=== PATIENT | male | born 1960 | race Caucasian/White ===

== ENCOUNTER → 2020-08-28 08:21 | Outpatient (BNVA) | payer OTHER, SELFPAY | PROVIDERS: PCP Internal Medicine; Visit Provider Surgery | DX: Z76.89 Persons encountering health services in other specified circumstances (principal) ==

== ENCOUNTER → 2020-11-26 09:43 | Outpatient (BNVA) | payer OTHER, SELFPAY | PROVIDERS: PCP Internal Medicine; Visit Provider Physician Assistant | DX: E66.01 Morbid (severe) obesity due to excess calories (principal); K91.2 Postsurgical malabsorption, not elsewhere classified; Z68.42 Body mass index [BMI] 45.0-49.9, adult; Z90.3 Acquired absence of stomach [part of] | CPT/HCPCS: 99212 ==

== ENCOUNTER → 2020-12-11 11:16 | Outpatient (REF) | payer OTHER, SELFPAY ==
--- NOTE | ~2020-12-11 | XR_ITS ---
EXAMINATION: XR CHEST CLINICAL INFORMATION: Obesity COMPARISON: Previous chest x-ray October 2019 TECHNIQUE: 2 views of the chest were obtained. FINDINGS: The cardiac and mediastinal contours are normal. The lungs are clear. There is no pleural effusion or pneumothorax. There are degenerative changes of the spine. XR/XR chest 2V IMPRESSION: No evidence for acute disease in the chest.
--- NOTE | 2020-12-11 12:44 | ECG_ITS ---
Test Reason : OBESITY Blood Pressure : / mmHG Vent. Rate : 051 BPM Atrial Rate : 051 BPM P-R Int : 196 ms QRS Dur : 098 ms QT Int : 456 ms P-R-T Axes : 057 029 013 degrees QTc Int : 420 ms Sinus bradycardia Otherwise normal ECG When compared with ECG of 28-OCT-2019 09:01, No significant change was found Referred By: Laurel Stovall Electronically Signed By:RAMSEY CANTOR MD
== END ==
LOC: HO.CARD 11:16
PROVIDERS: PCP Internal Medicine; Visit Provider Physician Assistant
DX: Z01.818 Encounter for other preprocedural examination (principal); R06.02 Shortness of breath; K91.2 Postsurgical malabsorption, not elsewhere classified; E66.01 Morbid (severe) obesity due to excess calories; Z90.3 Acquired absence of stomach [part of]
CPT/HCPCS: 71046; 93005; 99212

== ENCOUNTER → 2020-12-29 09:37 | Outpatient (BNVA) | payer OTHER, SELFPAY | PROVIDERS: PCP Internal Medicine; Visit Provider Surgery | DX: E66.01 Morbid (severe) obesity due to excess calories (principal); Z68.42 Body mass index [BMI] 45.0-49.9, adult | CPT/HCPCS: 99212 ==

== ENCOUNTER → 2021-01-14 08:47 | Outpatient (BNVA) | payer OTHER, SELFPAY | PROVIDERS: PCP Internal Medicine; Visit Provider Physician Assistant | DX: E66.01 Morbid (severe) obesity due to excess calories (principal); Z90.3 Acquired absence of stomach [part of]; Z68.41 Body mass index [BMI] 40.0-44.9, adult | CPT/HCPCS: 99212 ==

== ENCOUNTER → 2021-01-15 13:16 | Outpatient (BNVA) | payer OTHER, SELFPAY | PROVIDERS: PCP Internal Medicine; Visit Provider Physician Assistant ==

== ENCOUNTER → 2021-01-21 10:57 | Outpatient (BNVA) | payer OTHER, SELFPAY | PROVIDERS: PCP Internal Medicine; Visit Provider Surgery | DX: E66.01 Morbid (severe) obesity due to excess calories (principal); Z68.42 Body mass index [BMI] 45.0-49.9, adult | CPT/HCPCS: 99212 ==

== ENCOUNTER 2021-03-12 07:47 | Outpatient (REF) | payer BC, SELFPAY ==
[2021-03-12 08:23] LABS: Basophils Percent Auto 0.3 % (0-2); Eosinophils Absolute Auto 0.3 X10*3/uL (0.0-0.4); Eosinophils Percent Auto 5.9 % (0-4); Hematocrit 44.7 % (42-52); Hemoglobin 14.6 g/dl (14.0-18.0); Imm Gran Abs Auto 0.01 X10*3/uL (0.00-0.03); Imm Gran Pct Auto 0.2 % (0.0-0.4); Lymphocytes Absolute Auto 1.3 X10*3/uL (1.2-4.9); Lymphocytes Percent Auto 22.8 % (20-40); MANUAL DIFF FLAG NO; Mean Corpuscular HGB Conc 32.7 g/dl (31.0-36.0); Mean Corpuscular Volume 82.8 fL (80-98); Monocytes Absolute Auto 0.4 X10*3/uL (0.1-1.2); Monocytes Percent Auto 6.6 % (2-11); Neutrophils Absolute Auto 3.7 X10*3/uL (2.0-8.3); Neutrophils Percent Auto 64.2 % (45-73); Platelet Count 209 X10*3/uL (160-400); Red Cell Distribution Width 14.2 % (11.0-16.0); White Blood Count 5.8 X10*3/uL (4.8-10.8)
[2021-03-12 08:34] LABS: INTERNATIONAL NORM RATIO 1.2 (0.9-1.1); Prothrombin Time 13.6 SEC (9.9-13.0)
[2021-03-12 08:36] LABS: Partial Thromboplastin Time 35.9 SEC (24.1-38.0)
[2021-03-12 09:06] LABS: Albumin Level 4.1 g/dL (3.5-5.0); Anion Gap 10 (12-20); Blood Urea Nitrogen 18 mg/dL (9-16); Calcium 8.9 mg/dL (8.4-10.2); Carbon Dioxide 25 mmol/L (22-29); Chloride 109 mmol/L (96-108); Estimated Glomerular Filt Rate > 60; Glucose Random 120 mg/dL (60-115); Potassium 3.7 mmol/L (3.3-5.1); Sodium 140 mmol/L (135-145)
== END 2021-03-12 07:48 | disposition home or self-care (01) ==
LOC: HO.LAB 07:47
PROVIDERS: Visit Provider Surgery
DX: Z01.818 Encounter for other preprocedural examination (principal); R06.02 Shortness of breath
CPT/HCPCS: 36415; 80048; 82040; 85025; 85610; 85730; 86850; 86900; 86901

== ENCOUNTER → 2021-03-15 14:44 | Outpatient (BNVA) | payer BC, SELFPAY | PROVIDERS: PCP Internal Medicine; Visit Provider Physician Assistant ==

== ENCOUNTER 2021-03-17 11:33 | Inpatient (IN) | payer BC, SELFPAY ==
--- NOTE | 2021-03-16 09:11 | HO.ANESPROP2 ---
Documented by User: Liseth Vargas 03/16/21 09:17 HPI - Anesthesia Eval Consult details Narrative: 60yo M for Gastric Sleeve to Bypass Conversion,EGD,poss diaphragmatic hernia,poss ventral hernia,poss open h/o gastric sleeve 2013 [facility] Active Problems Active Problems: All Active Problems (Updated 02/02/21 @ 16:16 by Waleska Thakkar) BMI 45.0-49.9, adult (Acute) Morbid obesity due to excess calories (Acute) Depression, major, in remission (Acute) Preoperative examination (Acute) Shortness of breath (Acute) Depression (Acute) Preoperative testing (Acute) Intestinal malabsorption following gastrectomy (Acute) History of sleeve gastrectomy (Acute) Past Medical History Medical History (Updated 02/02/21 @ 16:16 by Waleska Thakkar) Acid reflux Arthritis Depression Gout Heart murmur History of concussion HTN (hypertension) Intestinal malabsorption following gastrectomy Migraines Pre-diabetes Preoperative testing Right rotator cuff tear Sleep apnea Family History Family History Father CHF (congestive heart failure) Mother Breast cancer Brother No problems noted. Brother No problems noted. Sister No problems noted. Sister No problems noted. Son No problems noted. Daughter Mast cell disorder Chriss-Danlos syndrome Chiari malformation Surgical History Surgical History (Updated 02/02/21 @ 09:06 by Waleska Thakkar) H/O nasal septoplasty History of ankle surgery History of sleeve gastrectomy History of tonsillectomy History of total adrenalectomy Hx of colonoscopy Status post left foot surgery Social History Social History (Updated 01/21/21 @ 12:10 by Antoinette Frances MD) Are you a primary care companion to a significant other at home: No Do you presently have visiting nurse or other home services: No Alcohol intake: never Patient Tobacco Use Status: Former Tobacco user Quit Date: 1999 Tobacco use type: Cigar Substance Use Type: Marijuana Meds Allergies Allergy/AdvReac Type Severity Reaction Status Date / Time No Known Allergies Allergy Verified 02/02/21 16:01 Home Medications Medication Instructions Recorded Confirmed Last Taken Type albuterol sulfate 90 mcg/actuation 2 puff INHALATION Q4-6H PRN 08/28/20 02/02/21 Unknown History aerosol inhaler (ProAir HFA) allopurinol 300 mg tablet 150 mg PO DAILY 08/28/20 02/02/21 Unknown History amlodipine 5 mg tablet 5 mg PO DAILY 08/28/20 02/02/21 03/17/21 04:30 History ascorbate calcium (vitamin C) 500 500 mg PO DAILY 08/28/20 02/02/21 Unknown History mg tablet aspirin 81 mg tablet,delayed 81 mg PO DAILY 08/28/20 02/02/21 Unknown History release (Adult Aspirin Regimen) cholecalciferol (vitamin D3) 25 25 mcg PO DAILY 08/28/20 02/02/21 Unknown History mcg (1,000 unit) capsule colchicine 0.6 mg tablet 0.6 mg PO DAILY PRN tab 08/28/20 02/02/21 Unknown History doxazosin 4 mg tablet 4 mg PO BID tab 08/28/20 02/02/21 03/17/21 04:30 History hydrochlorothiazide 12.5 mg capsule 12.5 mg PO BID 08/28/20 02/02/21 Unknown History iron,carbonyl 30 mg-folic acid 800 1 tab PO DAILY 08/28/20 02/02/21 Unknown History [id number] chewable tablet (Opurity Multivitamin) omeprazole magnesium 20 mg 20 mg PO BID 08/28/20 02/02/21 03/17/21 04:30 History capsule,delayed release valsartan 160 mg tablet 160 mg PO DAILY 08/28/20 02/02/21 Unknown History lorazepam 1 mg tablet 1 mg PO BEDTIME PRN 11/26/20 02/02/21 Unknown History Exam Exam Date and Time: March 16, 2021 0911 Pertinent Lab Results Pertinent Lab Results: Laboratory Tests 03/12/21 03/12/21 08:05 08:05 WBC 5.8 Hgb 14.6 Hct 44.7 Plt Count 209 Sodium 140 Potassium 3.7 Chloride 109 H Carbon Dioxide 25 BUN 18 H Creatinine 0.77 Narrative Narrative: EKG 11/2020 Vent. Rate : 051 BPM Atrial Rate : 051 BPM P-R Int : 196 ms QRS Dur : 098 ms QT Int : 456 ms P-R-T Axes : 057 029 013 degrees QTc Int : 420 ms Sinus bradycardia Otherwise normal ECG When compared with ECG of 28-OCT-2019 09:01, No significant change was found ECHO 01/2021 LV size and wall thickness is normal. Normal LV systolic function, EF 55-60%. No definite WMA. Grade 2, mod diastolic dysfunction. Pseudonormal LV filling pattern and increased LA pressure. Aortic valve poorly visualized, appears thickened. No aortic stenosis, no aortic regurg. No pericardial effusion Assessment and Plan Assessment Anesthesia Assessment: Chart Reviewed Documented by User: Deepika Shearer 03/17/21 08:10 [facility] Past Medical History Medical History (Updated 02/02/21 @ 16:16 by Waleska Thakkar) Acid reflux Arthritis Depression Gout Heart murmur History of concussion HTN (hypertension) Intestinal malabsorption following gastrectomy Migraines Pre-diabetes Preoperative testing Right rotator cuff tear Sleep apnea Family History Family History Father CHF (congestive heart failure) Mother Breast cancer Brother No problems noted. Brother No problems noted. Sister No problems noted. Sister No problems noted. Son No problems noted. Daughter Mast cell disorder Chriss-Danlos syndrome Chiari malformation Surgical History Surgical History (Updated 02/02/21 @ 09:06 by Waleska Thakkar) H/O nasal septoplasty History of ankle surgery History of sleeve gastrectomy History of tonsillectomy History of total adrenalectomy Hx of colonoscopy Status post left foot surgery Social History Social History (Updated 01/21/21 @ 12:10 by Antoinette Frances MD) Are you a primary care companion to a significant other at home: No Do you presently have visiting nurse or other home services: No Alcohol intake: never Patient Tobacco Use Status: Former Tobacco user Quit Date: 1999 Tobacco use type: Cigar Substance Use Type: Marijuana Meds Allergies Allergy/AdvReac Type Severity Reaction Status Date / Time No Known Allergies Allergy Verified 02/02/21 16:01 Home Medications Medication Instructions Recorded Confirmed Last Taken Type albuterol sulfate 90 mcg/actuation 2 puff INHALATION Q4-6H PRN 08/28/20 02/02/21 Unknown History aerosol inhaler (ProAir HFA) allopurinol 300 mg tablet 150 mg PO DAILY 08/28/20 02/02/21 Unknown History amlodipine 5 mg tablet 5 mg PO DAILY 08/28/20 02/02/21 03/17/21 04:30 History ascorbate calcium (vitamin C) 500 500 mg PO DAILY 08/28/20 02/02/21 Unknown History mg tablet aspirin 81 mg tablet,delayed 81 mg PO DAILY 08/28/20 02/02/21 Unknown History release (Adult Aspirin Regimen) cholecalciferol (vitamin D3) 25 25 mcg PO DAILY 08/28/20 02/02/21 Unknown History mcg (1,000 unit) capsule colchicine 0.6 mg tablet 0.6 mg PO DAILY PRN tab 08/28/20 02/02/21 Unknown History doxazosin 4 mg tablet 4 mg PO BID tab 08/28/20 02/02/21 03/17/21 04:30 History hydrochlorothiazide 12.5 mg capsule 12.5 mg PO BID 08/28/20 02/02/21 Unknown History iron,carbonyl 30 mg-folic acid 800 1 tab PO DAILY 08/28/20 02/02/21 Unknown History [id number]-[id number]-oywm chewable tablet (Opurity Multivitamin) omeprazole magnesium 20 mg 20 mg PO BID 08/28/20 02/02/21 03/17/21 04:30 History capsule,delayed release valsartan 160 mg tablet 160 mg PO DAILY 08/28/20 02/02/21 Unknown History lorazepam 1 mg tablet 1 mg PO BEDTIME PRN 11/26/20 02/02/21 Unknown History Exam Airway Mallampati Class: III TM Dist: >3cm Neck ROM: Full Assessment and Plan Final Anesthetic Review ASA Class: III Final Preanesthetic Review: Consent Obtained/Reviewed and Anes Risks/Benef Reviewed Patient Risk: Intermediate Procedure Risk: Intermediate Anesthetic Plan Anesthetic Plan: GA Disposition: Standard PACU
--- NOTE | 2021-03-16 12:57 | MHC.SHP ---
Pre-Procedural Eval Section A Date of Service: 03/16/21 Section B Chief Complaint: morbid obesity Allergies: Allergies Allergy/AdvReac Type Severity Reaction Status Date / Time No Known Allergies Allergy Verified 02/02/21 16:01 Plan I have reviewed the history and physical and performed a pertinent physical examination on my patient. No changes have occurred unless specified.
[2021-03-17] VITALS (11 sets, daily range): BP systolic 106–146; BP diastolic 52–68; PULSE 53–86; RESP 16–20; TEMP 35.8–37.2; O2SAT 8–97; BMI 43.7
--- NOTE | 2021-03-17 06:37 | PC.NURSE ---
PATIENT USES CRUTCHES TO WALK AND A LEFT FOOT BRACE FOR AMBULATION PER PATIENT
[2021-03-17] MEDS: Lactated Ringers 1,000 ML 100 ML IVCONT (06:58)
[2021-03-17 07:04] LABS: COVID-19 Test Negative (Negative)
--- NOTE | 2021-03-17 11:39 | PM.PNGS ---
Subjective Subjective Date of Service: 03/18/21 Interval history: Pod #1 s/p []. Doing well. Tolerating stage 3 diet, ambulating in hallway. Pain well controlled. Denies nausea or vomiting. Vitals and labs reviewed and are within limit for post op day 1. On exam, patient is well appearing, abdomen is soft, nd, mild appropriate incisional tenderness. Incisions c/d/i with dermabond in place. Plan: d/c home today. Follow up with me in 2 weeks. Physical Exam Vital Signs: Vital Signs: Last Vital Signs Temp 97.7 F 03/17/21 11:25 Pulse 81 03/17/21 11:35 Resp 18 03/17/21 11:35 BP 131/52 L 03/17/21 11:35 Pulse Ox 94 03/17/21 11:35 Body Mass Index 43.7 Procedures Date of Service Date of Service: 03/18/21 Progress Note: A&P Assessment and plan (1) Morbid obesity due to excess calories: Status: Acute (2) History of sleeve gastrectomy: Status: Acute (3) Intestinal malabsorption following gastrectomy: Status: Acute (4) Hiatal hernia: Status: Acute (5) History of repair of hiatal hernia: Status: Acute (6) S/P gastric bypass: Status: Acute Assessment and Plan: POD #1: Patient is doing well and will be discharged home today. All the discharge instructions were reviewed with the patient and given in writing. Patient will follow up as scheduled in 2 weeks. Fall Risk Details Current Medications: Current Medications Generic Name Dose Route Start Last Admin Trade Name Freq PRN Reason Stop Dose Admin Famotidine 20 mg 03/17/21 21:00 Famotidine/Pf 20 Mg/2 Ml Vial IVPUSH BID JACOB Hydralazine HCl 10 mg 03/17/21 11:40 Hydralazine Hcl 20 Mg/Ml Vial IVPUSH Q4H PRN SBP > 160 Hydromorphone HCl 0.25 mg 03/17/21 11:32 Hydromorphone Hcl 0.5 Mg/0.5 Ml Syringe IVPUSH Q4H PRN Pain, Severe (Pain Scale 7-10) Lactated Ringer's 1,000 mls @ 125 mls/hr 03/17/21 11:45 Lr IVCONT .Q8H JACOB Cefotetan Disodium 2 gm/ 50 mls @ 100 mls/hr 03/17/21 11:32 Sodium Chloride IV 03/17/21 12:01 POSTOP ONE Acetaminophen 1,000 mg in 100 mls @ 16.7 mls/hr 03/17/21 11:45 Ofirmev IV .Q6H JACOB Metoclopramide HCl 10 mg 03/17/21 11:32 Metoclopramide Hcl 10 Mg/2 Ml Vial IVPUSH Q6H PRN Nausea Ondansetron HCl 4 mg 03/17/21 11:45 Ondansetron Hcl 4 Mg/2 Ml Vial IVPUSH Q8H JACOB Sodium Chloride 3 ml 03/17/21 16:00 0.9 % Sodium Chloride Flush 3 Ml Syringe IVFLUSH QSHIFT JACOB Time Spent With Patient Time: Total time spent is greater than 50% in coordination of care (as documented) at patient's floor/unit and/or counseling patient: Time with patient: 25 - 35 minutes Quality Stroke Does the patient have a stroke diagnosis?: No VTE Prior VTE?: No VTE Risk Level:: Surgical - low VTE Device Contraindication: N/A - Device Ordered VTE Drug Contraindication: N/A - Med Ordered
--- NOTE | 2021-03-17 11:41 | P.DS_ITS ---
DS: Providers Provider Date of Service: 03/18/21 Primary care physician: Chay Acevedo MD DS: Diagnosis Discharge Diagnosis (1) Morbid obesity due to excess calories: Status: Acute (2) History of sleeve gastrectomy: Status: Acute (3) Intestinal malabsorption following gastrectomy: Status: Acute (4) Hiatal hernia: Status: Acute (5) History of repair of hiatal hernia: Status: Acute (6) S/P gastric bypass: Status: Acute DS: Medications Discharge Medications Home Medications: Home Medications Medication Instructions Recorded Confirmed albuterol sulfate 90 mcg/actuation 2 puff INHALATION Q4-6H PRN 08/28/20 02/02/21 aerosol inhaler (ProAir HFA) allopurinol 300 mg tablet 150 mg PO DAILY 08/28/20 02/02/21 amlodipine 5 mg tablet 5 mg PO DAILY 08/28/20 02/02/21 ascorbate calcium (vitamin C) 500 500 mg PO DAILY 08/28/20 02/02/21 mg tablet aspirin 81 mg tablet,delayed 81 mg PO DAILY 08/28/20 02/02/21 release (Adult Aspirin Regimen) cholecalciferol (vitamin D3) 25 25 mcg PO DAILY 08/28/20 02/02/21 mcg (1,000 unit) capsule colchicine 0.6 mg tablet 0.6 mg PO DAILY PRN tab 08/28/20 02/02/21 doxazosin 4 mg tablet 4 mg PO BID tab 08/28/20 02/02/21 hydrochlorothiazide 12.5 mg capsule 12.5 mg PO BID 08/28/20 02/02/21 iron,carbonyl 30 mg-folic acid 800 1 tab PO DAILY 08/28/20 02/02/21 [id number]-[id number]-gikm chewable tablet (Opurity Multivitamin) omeprazole magnesium 20 mg 20 mg PO BID 08/28/20 02/02/21 capsule,delayed release valsartan 160 mg tablet 160 mg PO DAILY 08/28/20 02/02/21 lorazepam 1 mg tablet 1 mg PO BEDTIME PRN 11/26/20 02/02/21 Previous Rx's Medication Instructions Recorded acetaminophen 500 mg tablet 1,000 mg PO Q6H PRN #30 tab 01/21/21 (Tylenol Extra Strength) docusate sodium 100 mg capsule 100 mg PO BID #30 cap 06/03/21 (Colace) ondansetron HCl 4 mg tablet 4 mg PO Q6H PRN #30 tab 01/21/21 (Zofran) simethicone 80 mg chewable tablet 80 mg PO TID-QID PRN #30 tab 01/21/21 (Gas Relief (simethicone)) DS: Summary Time Spent with Patient Time attestation: Total time spent providing and/or coordinating discharge services: Discharge coordination time: Greater than 30 minutes Quality: Stroke Does the patient have a stroke diagnosis?: No Physical Exam Vital Signs: Vital Signs: Last Vital Signs Temp 97.7 F 03/17/21 11:25 Pulse 81 03/17/21 11:35 Resp 18 03/17/21 11:35 BP 131/52 L 03/17/21 11:35 Pulse Ox 94 03/17/21 11:35 Body Mass Index 43.7 DS: Data Data Completed and Pending Labs on day of discharge: Laboratory Results - last 24 hr 03/12/21 03/17/21 08:05 06:27 COVID-19 (LINDA) Negative COVID-19 Clin Com See Note Blood Type A Positive Antibody Screen NEGATIVE Discharge Plan Discharge Patient Disposition: Home, Self-Care Discharge Diagnosis: obesity s/p lap conversion to GBP and HH repair Referrals: Chay Acevedo MD [Primary Care Provider] - 1 Week Discharge Medications: Continued lorazepam 1 mg tablet 1 mg PO BEDTIME PRN (Reason: Anxiety) RF: 0 amlodipine 5 mg tablet 5 mg PO DAILY RF: 0 doxazosin 4 mg tablet 4 mg PO BID RF: 0 allopurinol 300 mg tablet 150 mg PO DAILY RF: 0 valsartan 160 mg tablet 160 mg PO DAILY RF: 0 omeprazole magnesium 20 mg capsule,delayed release(DR/EC) 20 mg PO BID RF: 0 hydrochlorothiazide 12.5 mg capsule 12.5 mg PO BID RF: 0 Opurity Multivitamin 30 mg iron- 800 mcg tablet,chewable 1 tab PO DAILY RF: 0 colchicine 0.6 mg tablet 0.6 mg PO DAILY PRN (Reason: gout) RF: 0 cholecalciferol (vitamin D3) 25 mcg (1,000 unit) capsule 25 mcg PO DAILY RF: 0 ascorbate calcium (vitamin C) 500 mg tablet 500 mg PO DAILY RF: 0 albuterol sulfate [ProAir HFA] 90 mcg/actuation HFA aerosol inhaler 2 puff inhalation Q4-6H PRN (Reason: Wheezing) RF: 0 acetaminophen [Tylenol Extra Strength] 500 mg tablet 1,000 mg PO Q6H PRN (Reason: pain) Qty: 30 RF: 1 simethicone [Gas Relief (simethicone)] 80 mg tablet,chewable 80 mg PO TID-QID PRN (Reason: abdominal distention) Qty: 30 RF: 1 ondansetron HCl [Zofran] 4 mg tablet 4 mg PO Q6H PRN (Reason: nausea and vomiting) Qty: 30 RF: 1 docusate sodium [Colace] 100 mg capsule 100 mg PO BID Qty: 30 RF: 1 Discontinued aspirin [Adult Aspirin Regimen] 81 mg tablet,delayed release (DR/EC) 81 mg PO DAILY RF: 0 Discharge Orders: Discharge Order (Routine); Ordered 03/18/21 Ordered By: Laurel Stovall Diet: other Activity on Discharge: No heavy lifting Stand Alone Forms: Patient Portal Discharge page Activity Restrictions/Additional Instructions: Discharge Instructions 1. Please call your doctor or come back to the emergency room should any new symptoms arise. 2. You will receive a courtesy call from [facility] 24-48 hours after discharge. 3. Activity: abstain from alcohol, practice limited stair climbing, no bending, no driving, no exercise, no illicit substances, no lifting, no sex, no tub bath, no work. 4. Diet: continue stage 3 protein shakes until your [address] Frances. 5. Dressing Change/Wound Care: Your incision is covered by surgical glue. If the area is tender, you may apply an ice pack for short intervals (no more than 20 minutes on, followed by at least 20 minutes off). Do not apply heat. Do not use creams, lotions, or topical antibiotics unless instructed to do so by your surgeon. These can cause infection or allergic reaction. 6. Call your doctor if: - Your temperature exceeds 101.5 F - You experience excessive pain or swelling - You have an unexpected reaction to medication - You have excessive bleeding - You experience continued vomiting/nausea - Your incision begins to separate - Your incision shows signs of infection such as increased redness, swelling, excessive pain, heat, or drainage (light blood or clear fluid is normal) 7. General instructions: - No lifting greater than 5 lbs for the next 4 weeks. - No driving within 24 hours of taking narcotic pain medications. - If you do not move your bowels in the next 2 days, please take milk of magnesia over the counter. Please follow the post op diet and do not advance your diet until you are seen in the office in about 2 weeks. - Please walk around your home every hour or two to prevent blood clots from forming in your legs. You do not need to wake from sleeping to walk. - Please sleep in a bed or couch to prevent kinking at the hips and knees. - Please take your incentive spirometer (your lung ross lift operator) home with you and use it for the next few days to prevent pneumonias. - You may shower, no hot tubs, baths or swimming pools. - Please call the office with any questions or concerns such as increasing abdominal pain, fever, chills, shortness of breath, chest pain, leg pain or swelling, or redness or drainage from your incisions. - Please stay on stage 3 diet which includes sugar free clear liquids such as ice pops and jello and broth and crystal light. Avoid all carbonation. Please drink 3 protein shakes with at least 25-30 grams of protein daily or 3 of the Celebrate 4:1 shakes which can be purchased in our office. The Celebrate shakes have all of the bariatric vitamins you need if you consume these shakes. If you are drinking other protein shakes, you will need to purchase the Celebrate multivitamins and calcium that we provide in the office (they will provide all the vitamins you need). Please make sure you are consuming at least 40-60 ounces of water in addition to your 3 protein shakes daily. 8. Do not hesitate to contact the office with any questions at . The patient's medical history has been reviewed and they are considered low risk for post op DVT and therefore DVT prophylaxis is not considered necessary. Travel after surgery was reviewed. The patient has not disclosed any travel plans during the first 30 days after surgery and they have been advised that within the first 30 days after surgery any bus, plane, train or car travel over 2 hours in duration is contraindicated due to the possibility of developing blood clots from immobility. Any travel, needs to include periods of ambulation of 10 minutes in duration every 2 hours. The patient was instructed to discuss any plans for travel during this period with their bariatric surgeon. Discharge Summary Date of Service: 03/18/21 Pre-op diagnosis: Morbid obesity, BMI 44.9, gastroesophageal reflux disease, hypertension, and sleep apnea Procedure: Laparoscopic conversion of sleeve gastrectomy to Piedad-en-Y gastric bypass, hiatal hernia repair, intraoperative endoscopy, and Enoc block Discharge Medications: 1. Simethicone 80mg tablet chewable (Si tablet every 6 hours orally for 7 days, #28, 1 RF) q4h prn gas 2. Acetaminophen 500 mg tablet (Si tablets as needed every 6 hours orally for 30 days, #240, 0 RF) 3. Ondansetron 4 mg tablet disintegrating (Si tablet every 6 hours orally for 7 days, #28, 1 RF) 4. Colace 100 mg capsule (Si capsule twice a day for 30 days, #60, 2 RF) 5. Pepcid 20 mg chewable tablet (Si tablet twice a day for 30 days, #60, 3 RF) Discharge Instructions: The patient should continue on the stage III bariatric diet, which includes 3 protein shakes of at least 20-30g of protein on a daily basis. The patient was encouraged to avoid drinking liquids with her protein shakes. They should wait 30-45 minutes in between her meals and drinking water. She should drink at least 40-60 ounces of water on a daily basis. They should ambulate while at home to avoid any blood clots in her lower extremities. They should call with any questions or concerns such as increase in abdominal pain, persistent nausea, vomiting, redness and drainage from her incisions, fever, chills, shortness of breast, or chest pain beyond what is normal for her. The patient should avoid all heavy lifting greater than 5 pounds for the next 4 weeks. The patient is already scheduled to follow up with me in 2 weeks time, but should call the office with any questions prior to that follow up appointment. The patient should not advance their diet until they are seen in the office for the 2 week appointment. Hospital Course: The patient was admitted after undergoing a conversion to LRYGB. They were started on stage II (1 oz of fluid every 15 minutes) on POD #0. The next morning they were evaluated and started on stage III diet (protein shakes). All labs were within normal limits. On post-operative day #1 she was feeling better, nausea and epigastric pain improved and they were tolerating stage III bariatric diet well. The patient was discharged home. Discharge Disposition: Home. Care Plan Goals: weight loss Health Concerns: obesity Plan of Treatment: conv to GBP Assessment: stable POD #1
[2021-03-17] MEDS: Famotidine/PF 20 MG/2 ML VIAL IVPUSH ×2 (11:52→21:13)
--- NOTE | 2021-03-17 12:01 | PM.OP ---
Brief Operative Note Date of Service: 03/17/21 Pre-op diagnosis: Morbid obesity, BMI 44.9, gastroesophageal reflux disease, hypertension, and sleep apnea Procedure: Laparoscopic conversion of sleeve gastrectomy to Piedad-en-Y gastric bypass, hiatal hernia repair, intraoperative endoscopy, and Enoc block Implants: covidien maylin Surgeon: Antoinette Frances MD Was an Wildlife Veterinarian used for this Procedure?: Yes Wildlife Veterinarian: Laurel Stovall Estimated blood loss (mL): 10 Pathology: other (Partial gastrectomy) Condition: stable Disposition: PACU
--- NOTE | 2021-03-17 12:03 | P.OP_ITS ---
Operative Note Operative Note Date of Service: 03/17/21 Narrative: Patient was brought into the operating room and placed on the operating room table in the supine position. General anesthesia was induced. Normal DVT prophylaxis was instituted and the patient received 2 grams of cefotetan preoperatively. The abdomen was then prepped and draped in the normal sterile fashion. A safety time-out was performed. A mixture of 1% lidocaine with epinephrine and ?% Marcaine plain was used to an esthetize the planned incision site in the left upper quadrant. A #11 scalpel was used to make a 5 mm left upper quadrant transverse incision through which a veress needle was placed. Three pops were heard going through the fascia. A saline drop test was used to confirm that the veress needle was intraabdominal. An optiview technique was then used to place a 5mm port in the left upper quadrant. A 5 mm 30 degree laproscope was then placed through this port and the abdominal cavity was surveyed and was normal. The patient was placed in reverse Trendelenburg positioning. A vianey liver retractor was then placed in the subxyphoid position and it was used to hold up the left lobe of the liver to the abdominal wall. This was secured to the bed using the liver retractor vaz. A PA block was then performed for pain control on the right side of the abdomen. A 5 mm port was placed in the right upper quadrant near the falciform ligament. A 12 mm port was then placed in the mid epigastrium. One additional 5 mm port was placed in the left upper quadrant just to the left of the placement of the first port. I then performed a PA block on the left side of the abdomen. We lifted up the transverse colon mesentery and visualized the ligament of Trietz. I then counted 40 cm from the ligament of Trietz and created a small window in the small bowel mesentery. I then stapled across the antimesenteric surface of the small bowel at the at the 40 cm she. The proximal limb is the biliopancreatic limb and the distal transected bowel will be the earnestine limb. I divided the mesentery at the 40 cm she parallel to the blood vessels in the mesentery for a short distance to be able to bring up the earnestine limb to the gastric pouch later. I counted 150 cm from the distally transected bowel and sutured the the earnestine limb at 150 cm to the biliopancreatic limb using the endostich and a 2-0 ethibond. I then created 2 enterotomies in the lined up limbs of bowel using the hook cautery. I lengthened the enterotomies using the ligasure device and created a common anastomosis using a 60 mm brizuela load endostapler. I stapled the common enterotomy transversely to prevent stricture. I then closed the mesenteric defect at the anastomosis with a 2-0 ethibond running endostich suture. I then created the gastric pouch from the prior sleeve gastrectomy I removed the epigastric fat pad and opened up the angle of His. There was a 3 cm anterior hiatal hernia. I reapproximated the right and left crura anteriorly with 2 stitches of 2-0 Ethibond. There was no residual hiatal hernia. I gained entry into the lesser sac on the lesser curvature of the stomach by dividing a portion of the pars lucida. I fired a 60 mm purple endostapler transversely across the stomach about 6 cm distal to the GE junction. This completed the creation of the gastric pouch from the prior gastric sleeve. The staple line was hemostatic. I brought the earnestine limb up to the gastric pouch and sutured the earnestine limb serosa to the gastric pouch serosa posterior to the transverse staple line using a 2-0 ethibond running stitch using the endostitch. I created a gastrotomy and enterotomy in the adjacent earnestine limb. I lengthened the gastrotomy and enterotomy using the ligasure. I sutured the posterior wall of the stomach and the earnestine limb together using a 0 vicryl running stitch. I sutured the anterior wall of the stomach and earnestine limb together using another running 0-vicryl stitch. The the anterior serosa of stomach and earnestine limb were sutured using a 2-0 ethibond running stitch for a double layer anterior and posterior closure of the gastrojejunostomy. I then clamped across the earnestine limb distal to the anastomosis using a fired 60 mm stapler. I flatted the patient and instilled normal saline around the new anastomosis. I per formed an on-talbe endoscopy. The gastric pouch mucosa was pink without any active bleeding the anastomosis was visably patent. I insufflated the gastric pouch and anastomosis. There was no evidence of leak on laparoscopy. I desufflated the gastric pouch and removed the endoscopy. I removed the endostapler from the abdomen and suctioned the fluid from the left upper quadrant. We removed the 12 mm port and closed the defect with a 0 maxon suture and laparoscopic suture passer. We instilled local anesthetic into the fascial closure site and tied the suture down at a pressure of 8-10 mm of Hg. I removed the vianey liver retractor and the left upper quadrant ports. There was no evidence active bleeding. I removed the last port and laparoscope. We reapproximated all skin incisions using 4-0 monocryl subcuticular stitch. We cleaned and dried the skin and applied dermabond to all skin incisions. All counts were correct at the end of the case . There were no complications. The patient was awake and in stable condition prior to extubation and transfer to the recovery room.
[2021-03-17] MEDS: Lactated Ringers 1,000 ML 125 ML IVCONT ×3 (12:11→19:40)
[2021-03-17] MEDS: HYDROmorphone HCl 0.5 MG/0.5 ML SYRINGE 0.25 MG IVPUSH (12:59)
[2021-03-17] MEDS: cefoTEtan disodium 2 GM in 0.9 % Sodium Chloride 50 ML IV (19:39)
[2021-03-17] MEDS: 0.9 % Sodium Chloride Flush 3 ML SYRINGE IVFLUSH (21:13)
[2021-03-17] MEDS: LORazepam 2 MG/ML VIAL 0.25 MG IVPUSH (22:18)
[2021-03-18] MEDS: Lactated Ringers 1,000 ML 125 ML IVCONT (03:24)
[2021-03-18] MEDS: HYDROmorphone HCl 0.5 MG/0.5 ML SYRINGE 0.25 MG IVPUSH (03:56)
[2021-03-18 04:00] VITALS: BP 148/57; PULSE 61; RESP 18; TEMP 36.7; O2SAT 97
[2021-03-18 06:35] LABS: MANUAL DIFF FLAG NO
[2021-03-18 06:38] LABS: Basophils Percent Auto 0.2 % (0-2); Eosinophils Percent Auto 0.1 % (0-4); Hematocrit 39.4 % (42-52); Hemoglobin 13.2 g/dl (14.0-18.0); Imm Gran Abs Auto 0.19 X10*3/uL (0.00-0.03); Imm Gran Pct Auto 1.6 % (0.0-0.4); Lymphocytes Absolute Auto 0.7 X10*3/uL (1.2-4.9); Lymphocytes Percent Auto 6.3 % (20-40); Mean Corpuscular HGB Conc 33.5 g/dl (31.0-36.0); Mean Corpuscular Hemoglobin 26.8 pg (27.0-33.0); Mean Corpuscular Volume 79.9 fL (80-98); Mean Platelet Volume 10.1 fL (9.4-12.4); Monocytes Absolute Auto 0.7 X10*3/uL (0.1-1.2); Monocytes Percent Auto 5.6 % (2-11); Neutrophils Absolute Auto 10.1 X10*3/uL (2.0-8.3); Neutrophils Percent Auto 86.2 % (45-73); Platelet Count 196 X10*3/uL (160-400); Red Blood Count 4.93 X10*6/uL (4.60-5.80); Red Cell Distribution Width 13.8 % (11.0-16.0); White Blood Count 11.7 X10*3/uL (4.8-10.8)
[2021-03-18] MEDS: Famotidine/PF 20 MG/2 ML VIAL IVPUSH (07:09)
[2021-03-18 07:13] LABS: Anion Gap 13 (12-20); Blood Urea Nitrogen 18 mg/dL (9-16); Calcium 9.1 mg/dL (8.4-10.2); Carbon Dioxide 26 mmol/L (22-29); Chloride 105 mmol/L (96-108); Creatinine Clr Calc Pharmacy 94.9; Estimated Glomerular Filt Rate > 60; Glucose Random 127 mg/dL (60-115); Potassium 4.4 mmol/L (3.3-5.1); Sodium 140 mmol/L (135-145)
[2021-03-18 07:49] VITALS: BP 159/78; PULSE 54; RESP 18; TEMP 37.1; O2SAT 97
--- NOTE | 2021-03-18 08:06 | HO.POSTANES ---
Post Anesthesia Evaluation Post Anesthesia Evaluation Vital Signs: Vital Signs Temp Pulse Resp BP Pulse Ox 03/18/21 07:49 98.7 F 54 18 159/78 H 97 03/18/21 04:00 98.1 F 61 18 148/57 H 97 03/17/21 23:40 98.6 F 63 18 133/62 97 Anesthesia: General Endotracheal-GETA Mental Status: Awake Pain Control: Satisfactory Nausea/Vomiting: None Hydration: Adequate Anesthesia-Related Issues: No Anes. Related Issues
[2021-03-18] MEDS: amLODIPine Besylate 5 MG TABLET PO (10:24)
[2021-03-18] MEDS: Valsartan 160 MG TABLET PO (10:24)
[2021-03-18 12:00] VITALS: BP 160/71; PULSE 53; RESP 18; TEMP 37.1; O2SAT 97
== END 2021-03-18 13:06 | disposition home or self-care (01) | DRG 403 ==
LOC: HO.SSSA 11:47 → HO.S3 11:58
PROVIDERS: Physician Assistant; Admitting Provider Surgery; PCP Internal Medicine; Visit Provider Surgery
PROC: 0D164ZA Bypass Stomach to Jejunum, Percutaneous Endoscopic Approach (ICD-10-PCS; principal; 2021-03-17 08:10)
DX: E66.01 Morbid (severe) obesity due to excess calories (principal); K91.2 Postsurgical malabsorption, not elsewhere classified; I10 Essential (primary) hypertension; K21.9 Gastro-esophageal reflux disease without esophagitis; G47.30 Sleep apnea, unspecified; K44.9 Diaphragmatic hernia without obstruction or gangrene; Z68.41 Body mass index [BMI] 40.0-44.9, adult; Z20.822 Contact with and (suspected) exposure to COVID-19; Z87.891 Personal history of nicotine dependence; Z98.84 Bariatric surgery status; Z79.899 Other long term (current) drug therapy
CPT/HCPCS: 36415; 80048; 85025; 86850; 86900; 86901; 87635; J0131; J1100; J1170; J2060; J2250; J2405; J3010

== ENCOUNTER → 2021-03-22 14:09 | Outpatient (BNVA) | payer BC, SELFPAY | PROVIDERS: PCP Internal Medicine; Visit Provider Surgery ==

== ENCOUNTER → 2021-04-01 10:52 | Outpatient (BNVA) | payer BC, SELFPAY | PROVIDERS: PCP Internal Medicine; Visit Provider Surgery ==

== ENCOUNTER → 2021-04-30 09:28 | Outpatient (BNVA) | payer BC, SELFPAY | PROVIDERS: PCP Internal Medicine; Visit Provider Surgery ==

== ENCOUNTER → 2021-05-28 07:59 | Outpatient (BNVA) | payer BC, SELFPAY | PROVIDERS: PCP Internal Medicine; Visit Provider Dietitian, Registered | DX: E66.9 Obesity, unspecified (principal); Z68.36 Body mass index [BMI] 36.0-36.9, adult | CPT/HCPCS: 97803 ==

== ENCOUNTER → 2021-06-11 10:33 | Outpatient (BNVA) | payer BC, SELFPAY | PROVIDERS: PCP Internal Medicine; Visit Provider Physician Assistant Surgical ==

== ENCOUNTER → 2021-07-19 10:00 | Outpatient (BNVA) | payer BC, SELFPAY | PROVIDERS: PCP Internal Medicine; Visit Provider Physician Assistant Surgical ==

== ENCOUNTER 2021-09-20 11:29 | Outpatient (REF) | payer BC, SELFPAY | END 2021-09-20 11:30 | disposition home or self-care (01) | LOC: HO.LAB 11:29 | PROVIDERS: Absent Provider Physician Assistant; PCP Internal Medicine; Visit Provider Physician Assistant Surgical | DX: Z13.89 Encounter for screening for other disorder (principal) ==

== ENCOUNTER → 2021-10-14 08:18 | Outpatient (BNVA) | payer BC, SELFPAY | PROVIDERS: PCP Internal Medicine; Visit Provider Dietitian, Registered | DX: E66.3 Overweight (principal); Z68.28 Body mass index [BMI] 28.0-28.9, adult; R73.03 Prediabetes; Z98.84 Bariatric surgery status; Z71.3 Dietary counseling and surveillance | CPT/HCPCS: 97803 ==

== ENCOUNTER 2021-11-23 11:40 | Inpatient (IN) | payer BC, SELFPAY ==
[2021-11-23] VITALS (26 sets, daily range): BP systolic 97–132; BP diastolic 45–66; PULSE 52–86; RESP 14–54; TEMP 36.3–37.4; O2SAT 98–99; BMI 27.8; BMI 30.3
--- NOTE | ~2021-11-23 | CT_ITS ---
EXAMINATION: CT ABDOMEN AND PELVIS WITH CONTRAST CLINICAL INFORMATION: Left lower quadrant pain and rectal bleeding COMPARISON: None TECHNIQUE: Multidetector volumetric images were obtained from the superior aspect of the liver through the pubic symphysis following administration 85 mL of Omnipaque 350 intravenous contrast. Sagittal and coronal reformatted images were obtained on the technologist's workstation. Oral contrast: Yes This CT examination was performed using dose optimization techniques as appropriate, variously including the following: *Automated exposure control *Adjustment of mA and/or kV according to patient size (this includes techniques or standardized protocols for targeted exams where dose is matched to indication/reason for exam; i.e. extremities or head) *Use of iterative reconstruction technique DLP: 622 mGy-cm FINDINGS: LUNG BASES: There are several clustered left lower lobe nodules, largest measuring 5 mm. LIVER, GALLBLADDER, AND BILIARY TREE: The liver is normal in size, shape, and attenuation. No focal hepatic lesion or biliary ductal dilatation is present. The gallbladder is unremarkable with no evidence of radiopaque gallstones, gallbladder wall thickening, or obvious pericholecystic inflammatory changes. PANCREAS: Unremarkable. SPLEEN: Unremarkable. ADRENAL GLANDS: Unremarkable. KIDNEYS AND URETERS: The kidneys are normal in size, shape, and attenuation. No hydronephrosis, hydroureter, or calculi seen. No perinephric stranding. BLADDER: Unremarkable. GASTROINTESTINAL TRACT: There are postoperative changes from gastric bypass. There is mild diverticulosis of the colon. No evidence of diverticulitis or colitis is seen. The appendix is unremarkable. ABDOMINAL WALL: No significant hernia is appreciated. LYMPH NODES: Normal. VASCULAR: Unremarkable. PELVIC VISCERA: Prostate gland is slightly enlarged measuring 5 x 5.8 cm. There is a small amount of fluid in the pelvis. OSSEOUS STRUCTURES: There are degenerative changes of the spine. CT/CT abdomen pelvis w con IMPRESSION: Postoperative changes from gastric bypass. Mild diverticulosis. No evidence of diverticulitis or colitis. Enlarged prostate gland. Left lower lobe pulmonary nodules. Fleischner guidelines were followed.
[2021-11-23 12:27] LABS: MANUAL DIFF FLAG NO
[2021-11-23 12:29] LABS: Basophils Percent Auto 0.2 % (0-2); Eosinophils Absolute Auto 0.1 X10*3/uL (0.0-0.4); Eosinophils Percent Auto 2.1 % (0-4); Hematocrit 28.3 % (42.0-52.0); Hemoglobin 9.4 g/dl (14.0-18.0); Imm Gran Abs Auto 0.01 X10*3/uL (0.00-0.03); Imm Gran Pct Auto 0.2 % (0.0-0.4); Lymphocytes Absolute Auto 1.1 X10*3/uL (1.2-4.9); Lymphocytes Percent Auto 26.3 % (20-40); Mean Corpuscular HGB Conc 33.2 g/dl (31.0-36.0); Mean Corpuscular Hemoglobin 28.5 pg (27.0-33.0); Mean Corpuscular Volume 85.8 fL (80.0-98.0); Mean Platelet Volume 10.1 fL (9.4-12.4); Monocytes Absolute Auto 0.3 X10*3/uL (0.1-1.2); Neutrophils Absolute Auto 2.7 x10*3/uL (2.0-8.3); Neutrophils Percent Auto 64.2 % (45-73); Platelet Count 169 X10*3/uL (160-400); Red Cell Distribution Width 14.5 % (11.0-16.0); White Blood Count 4.3 X10*3/uL (4.8-10.8)
[2021-11-23 12:35] LABS: INTERNATIONAL NORM RATIO 1.3 (0.9-1.1); Prothrombin Time 14.4 SEC (9.9-13.0)
[2021-11-23 12:56] LABS: Troponin-I High Sensitivity 22.6 ng/L (<3.5-35.0)
[2021-11-23 12:59] LABS: Alanine Aminotransferase 54 U/L (0-40); Albumin Level 3.5 g/dL (3.5-5.0); Alkaline Phosphatase 50 U/L (39-117); Anion Gap 6 (12-20); Aspartate Amino Transferase 34 U/L (5-37); Bilirubin Direct 0.4 mg/dL (0.0-0.5); Bilirubin Total 0.8 mg/dL (0.0-1.0); Blood Urea Nitrogen 30 mg/dL (9-16); Calcium 8.9 mg/dL (8.4-10.2); Carbon Dioxide 30 mmol/L (22-29); Chloride 110 mmol/L (96-108); Creatinine Clr Calc Pharmacy 118.3; Estimated Glomerular Filt Rate > 60; Glucose Random 92 mg/dL (60-115); Lipase 54 U/L (8-78); Potassium 4.1 mmol/L (3.3-5.1); Sodium 142 mmol/L (135-145); Total Protein 5.2 g/dL (6.5-8.0)
[2021-11-23 13:37] LABS: OBS Int Ctl Valid YES; OBS1 POSITIVE (NEGATIVE)
[2021-11-23] MEDS: ondansetron HCL 4 MG/2 ML VIAL IVPUSH (13:41)
--- NOTE | 2021-11-23 13:41 | ED_ITS ---
HPI - GI Bleed General Chief complaint: GI Bleed Stated complaint: black stool w/ blood/abd pain Time Seen by Provider: 11/23/21 13:05 Source: patient Mode of arrival: ambulatory Limitations: no limitations History of Present Illness HPI Narrative: Patient comes to the emergency room complaining of black/maroon stool for the last 3 days. Patient states that over the last 3 days, the black colored has become more obvious, and the abdominal pain has been gradually getting worse. Patient has history of sleeve gastrectomy which was converted into a gastric bypass, done in February of 2021 here at [facility]. Also, patient admits that he has been taking baby aspirin daily. Patient complaining of diff use abdominal pain, worse in the left lower quadrant. Patient denies fever chills, no dysuria. Earlier today, patient had 1 episode of vomiting without blood. Patient states that today he has had 2 episodes of dizziness. One in the morning when he stood up, he started feeling very dizzy/lightheaded. The 2nd time was today when he was walking from the waiting room in the ED to his current room. Related Data Home Medications Medication Instructions Recorded Confirmed albuterol sulfate 90 mcg/actuation 2 puff INHALATION Q4-6H PRN 08/28/20 11/23/21 aerosol inhaler (ProAir HFA) ascorbate calcium (vitamin C) 500 500 mg PO DAILY 08/28/20 11/23/21 mg tablet colchicine 0.6 mg tablet 0.6 mg PO DAILY PRN tab 08/28/20 11/23/21 iron,carbonyl 30 mg-folic acid 800 1 tab PO DAILY 08/28/20 11/23/21 [id number] chewable tablet (Opurity Multivitamin) valsartan 160 mg tablet 160 mg PO DAILY 08/28/20 11/23/21 trazodone 50 mg tablet 200 mg PO BEDTIME PRN tab 04/01/21 11/23/21 calcium citrate 1,000 mg tablet 1,000 mg PO DAILY 04/30/21 11/23/21 diphenhydramine HCl 25 mg capsule 50 mg PO BEDTIME cap 04/30/21 11/23/21 (Benadryl) allopurinol 300 mg tablet 300 mg PO DAILY 11/23/21 11/23/21 aspirin 81 mg chewable tablet 81 mg PO DAILY 11/23/21 11/23/21 atorvastatin 40 mg tablet 1 tab PO DAILY 11/23/21 11/23/21 buspirone 10 mg tablet 1 tab PO BID PRN 11/23/21 11/23/21 buspirone 10 mg tablet 1 tab PO DAILY 11/23/21 11/23/21 cholecalciferol (vitamin D3) 25 25 mcg PO DAILY 11/23/21 11/23/21 mcg (1,000 unit) tablet tamsulosin 0.4 mg capsule 1 cap PO DAILY 11/23/21 11/23/21 Allergies Allergy/AdvReac Type Severity Reaction Status Date / Time No Known Allergies Allergy Verified 09/20/21 11:33 Review of Systems Review of Systems: Constitutional : No Weight loss, No Fever, No Chills, No Night Sweats, No Fatigue, No Malaise ENT/Mouth : No Hearing loss, No Ear Pain, No Nasal Congestion, No Sinus Pain, No Hoarseness, No sore throat, No Rhinorrhea, No Swallowing Difficulty Eyes: No Eye Pain, No Swelling, No Redness, No Foreign Body, No Discharge, No Vision Changes Cardiovascular : No Chest Pain, No SOB, No Dyspnea on Exertion, No Orthopnea, No Edema, No Palpitations Respiratory : No Cough, No Sputum, No Wheezing, No Smoke Exposure, No Dyspnea Gastrointestinal : Complaining of nausea, 1 episode of vomiting, no diarrhea, having black/maroon stool for 3 days Genitourinary : no irregular bleeding, No Dysuria, No Urinary Frequency, No Hematuria, No Urinary Incontinence, No Urgency, No Flank Pain, No Urinary Flow Changes, No Hesitancy Musculoskeletal : No joint pain, No Myalgias, No Joint Swelling Skin : No Skin Lesions, No rash Neuro : No Weakness, No Numbness, No Paresthesias, No Loss of Consciousness, No Dizziness, No Headache Psych : No Anxiety/Panic, No Depression, No SI/HI/AH/VH, No Social Issues, Heme/Lymph: No Bruising, No Bleeding,No Lymphadenopathy Endocrine : No Polyuria, No Polydipsia, No Temperature Intolerance [facility] Past Medical History Medical History Acid reflux Arthritis Depression Gout Heart murmur Hiatal hernia History of concussion HTN (hypertension) Intestinal malabsorption following gastrectomy Migraines Pre-diabetes Preoperative testing Right rotator cuff tear Sleep apnea Surgical History H/O nasal septoplasty History of ankle surgery History of gastric bypass History of repair of hiatal hernia History of sleeve gastrectomy History of tonsillectomy History of total adrenalectomy Hx of colonoscopy S/P gastric bypass Status post left foot surgery Family History Family History Father CHF (congestive heart failure) Mother Breast cancer Brother No problems noted. Brother No problems noted. Sister No problems noted. Sister No problems noted. Son No problems noted. Daughter Mast cell disorder Chriss-Danlos syndrome Chiari malformation Social History Social History Are you a primary health care facility administrator to a significant other at home: No Do you presently have visiting nurse or other home services: No Alcohol intake: current Alcohol intake frequency: holidays/special occasions only Patient Tobacco Use Status: Former Tobacco user Quit Date: 1999 Tobacco use type: Cigar Use of substances other than those prescribed or required for medical reasons: No Substance Use Type: Marijuana Advance Directives: No Advance Directives Information Provided: Yes Physical Exam Vital Signs: Vital Signs: Last Vital Signs Temp 99.0 F 11/23/21 16:31 Pulse 56 11/23/21 16:31 Resp 16 11/23/21 16:31 BP 106/55 L 11/23/21 16:31 Pulse Ox 99 11/23/21 14:32 BMI result Body Mass Index 27.8 Const: Other: Appearance: Alert. Oriented X3. Slightly uncomfortable Eyes: Pupils equal, round and reactive to light. ENT: Pharynx normal. Neck: Normal inspection. Neck supple. No lymph nodes noted. No crepitus CVS: Normal heart rate and rhythm. Pulses normal. Normal S1 and S2 Respiratory: No respiratory distress. Breath sounds normal. No Wheezing. No rales Abdomen: Soft, diffuse abdominal pain worse in the left lower quadrant, no rebound, no guarding Skin: Skin warm and dry. Diffusely pale, slightly diaphoretic Extremities: No lower extremity edema. No Lacerations. No Rash Neuro: Oriented X 3. No motor deficit. No sensory deficit. Moving all extremities. No slurred speech. CN 2 through 12 grossly intact Psych: calm, cooperative, normal affect Course Course Course Narrative: I discussed the patient with nurse practitioner Odilia from bariatric surgery. Patient's hemoglobin level is usually around 14, today is 9.4. We will transfuse the patient with PRBCs and also per Dr. Buchanan' advice, we will give 1 of platelets since the patient has been taking aspirin daily. Repeat H&H pending, CT scan pending. I discussed with the patient the risks versus benefits of a blood transfusion. Patient states that he has had a blood transfusion before when he was 14 years old. Patient agrees to the transfusion of platelets and blood. We will also get a GI consult, patient will be admitted I discussed the patient with Dr. Salcedo, endoscopy will likely take place on 11/25/21 unless it becomes urgent. Dr. Markham will be admitted the patient to the medicine service. MDM - GI Bleed Lab Data Result diagrams: 11/23/21 13:41 11/23/21 12:19 Labs: Lab Results 11/23/21 11/23/21 11/23/21 Range/Units 12:19 12:19 12:19 WBC 4.3 L (4.8-10.8) X10*3/uL RBC 3.30 L (4.60-5.80) X10*6/uL Hgb 9.4 L (14.0-18.0) g/dl Hct 28.3 L (42.0-52.0) % MCV 85.8 (80.0-98.0) fL MCH 28.5 (27.0-33.0) pg MCHC 33.2 (31.0-36.0) g/dl RDW 14.5 (11.0-16.0) % Plt Count 169 (160-400) X10*3/uL MPV 10.1 (9.4-12.4) fL Immature Gran % (Auto) 0.2 (0.0-0.4) % Neut % (Auto) 64.2 (45-73) % Lymph % (Auto) 26.3 (20-40) % [place] % (Auto) 7.0 (2-11) % Eos % (Auto) 2.1 (0-4) % Baso % (Auto) 0.2 (0-2) % Lymph # (Auto) 1.1 L (1.2-4.9) X10*3/uL [place] # (Auto) 0.3 (0.1-1.2) X10*3/uL Eos # (Auto) 0.1 (0.0-0.4) X10*3/uL Baso # (Auto) 0.0 (0.0-0.2) X10*3/uL Abs Immat Gran (auto) 0.01 (0.00-0.03) X10*3/uL Absolute Neuts (auto) 2.7 (2.0-8.3) x10*3/uL Absolute Nucleated RBC 0.000 (0.0-0.012) X10*3/uL Nucleated RBC % (auto) 0.0 (0.0-0.2) /100WBC PT (9.9-13.0) SEC INR (0.9-1.1) Sodium 142 (135-145) mmol/L Potassium 4.1 (3.3-5.1) mmol/L Chloride 110 H (96-108) mmol/L Carbon Dioxide 30 H (22-29) mmol/L Anion Gap 6 L (12-20) BUN 30 H (9-16) mg/dL Creatinine 0.65 (0.5-1.4) mg/dL Estim Creat Clear Calc 118.3 Estimated GFR > 60 Random Glucose 92 (60-115) mg/dL Calcium 8.9 (8.4-10.2) mg/dL Total Bilirubin 0.8 (0.0-1.0) mg/dL Direct Bilirubin 0.4 (0.0-0.5) mg/dL AST 34 (5-37) U/L ALT 54 H (0-40) U/L Alkaline Phosphatase 50 (39-117) U/L Troponin I High Sens 22.6 (<3.5-35.0) ng/L Total Protein 5.2 L (6.5-8.0) g/dL Albumin 3.5 (3.5-5.0) g/dL Lipase 54 (8-78) U/L Stool Occult Blood (NEGATIVE) COVID-19 (LINDA) (Negative) COVID-19 Clin Com Blood Type Antibody Screen Crossmatch 11/23/21 11/23/21 11/23/21 Range/Units 12:19 12:22 13:32 WBC (4.8-10.8) X10*3/uL RBC (4.60-5.80) X10*6/uL Hgb (14.0-18.0) g/dl Hct (42.0-52.0) % MCV (80.0-98.0) fL MCH (27.0-33.0) pg MCHC (31.0-36.0) g/dl RDW (11.0-16.0) % Plt Count (160-400) X10*3/uL MPV (9.4-12.4) fL Immature Gran % (Auto) (0.0-0.4) % Neut % (Auto) (45-73) % Lymph % (Auto) (20-40) % [place] % (Auto) (2-11) % Eos % (Auto) (0-4) % Baso % (Auto) (0-2) % Lymph # (Auto) (1.2-4.9) X10*3/uL [place] # (Auto) (0.1-1.2) X10*3/uL Eos # (Auto) (0.0-0.4) X10*3/uL Baso # (Auto) (0.0-0.2) X10*3/uL Abs Immat Gran (auto) (0.00-0.03) X10*3/uL Absolute Neuts (auto) (2.0-8.3) x10*3/uL Absolute Nucleated RBC (0.0-0.012) X10*3/uL Nucleated RBC % (auto) (0.0-0.2) /100WBC PT 14.4 H (9.9-13.0) SEC INR 1.3 H (0.9-1.1) Sodium (135-145) mmol/L Potassium (3.3-5.1) mmol/L Chloride (96-108) mmol/L Carbon Dioxide (22-29) mmol/L Anion Gap (12-20) BUN (9-16) mg/dL Creatinine (0.5-1.4) mg/dL Estim Creat Clear Calc Estimated GFR Random Glucose (60-115) mg/dL Calcium (8.4-10.2) mg/dL Total Bilirubin (0.0-1.0) mg/dL Direct Bilirubin (0.0-0.5) mg/dL AST (5-37) U/L ALT (0-40) U/L Alkaline Phosphatase (39-117) U/L Troponin I High Sens (<3.5-35.0) ng/L Total Protein (6.5-8.0) g/dL Albumin (3.5-5.0) g/dL Lipase (8-78) U/L Stool Occult Blood POSITIVE (NEGATIVE) COVID-19 (LINDA) (Negative) COVID-19 Clin Com Blood Type A Positive Antibody Screen NEGATIVE Crossmatch See Detail 11/23/21 11/23/21 Range/Units 13:41 15:36 WBC (4.8-10.8) X10*3/uL RBC (4.60-5.80) X10*6/uL Hgb 9.0 L (14.0-18.0) g/dl Hct 27.1 L (42.0-52.0) % MCV (80.0-98.0) fL MCH (27.0-33.0) pg MCHC (31.0-36.0) g/dl RDW (11.0-16.0) % Plt Count (160-400) X10*3/uL MPV (9.4-12.4) fL Immature Gran % (Auto) (0.0-0.4) % Neut % (Auto) (45-73) % Lymph % (Auto) (20-40) % [place] % (Auto) (2-11) % Eos % (Auto) (0-4) % Baso % (Auto) (0-2) % Lymph # (Auto) (1.2-4.9) X10*3/uL [place] # (Auto) (0.1-1.2) X10*3/uL Eos # (Auto) (0.0-0.4) X10*3/uL Baso # (Auto) (0.0-0.2) X10*3/uL Abs Immat Gran (auto) (0.00-0.03) X10*3/uL Absolute Neuts (auto) (2.0-8.3) x10*3/uL Absolute Nucleated RBC (0.0-0.012) X10*3/uL Nucleated RBC % (auto) (0.0-0.2) /100WBC PT (9.9-13.0) SEC INR (0.9-1.1) Sodium (135-145) mmol/L Potassium (3.3-5.1) mmol/L Chloride (96-108) mmol/L Carbon Dioxide (22-29) mmol/L Anion Gap (12-20) BUN (9-16) mg/dL Creatinine (0.5-1.4) mg/dL Estim Creat Clear Calc Estimated GFR Random Glucose (60-115) mg/dL Calcium (8.4-10.2) mg/dL Total Bilirubin (0.0-1.0) mg/dL Direct Bilirubin (0.0-0.5) mg/dL AST (5-37) U/L ALT (0-40) U/L Alkaline Phosphatase (39-117) U/L Troponin I High Sens (<3.5-35.0) ng/L Total Protein (6.5-8.0) g/dL Albumin (3.5-5.0) g/dL Lipase (8-78) U/L Stool Occult Blood (NEGATIVE) COVID-19 (LINDA) Negative (Negative) COVID-19 Clin Com See Note Blood Type Antibody Screen Crossmatch Critical Care Time Critical Care Time Critical Care Time: Yes Total Critical Care Time: 50 Attestation: I have personally provided critical care time. Time includes review of lab data, radiology results, discussion with consultants, and monitoring for potential decompensation. Intervention performed as documented. Discharge Plan Discharge Clinical Impression: Acute GI bleeding Patient Disposition: Admitted As Inpatient
[2021-11-23] MEDS: 0.9 % Sodium Chloride 1,000 ML 999 ML IVCONT (13:42)
[2021-11-23] MEDS: Morphine Sulfate 2 MG/ML CARTRIDGE IVPUSH (13:45)
[2021-11-23 13:52] LABS: Hematocrit 27.1 % (42.0-52.0)
[2021-11-23] MEDS: iohexoL 350 MG/ML 100 ML INFUS..BTL IV (14:07)
--- NOTE | 2021-11-23 15:28 | PC.NURSE ---
Pt seen by GI. PRBCs continue to infuse, no rx noted. sinus kamila on tele
--- NOTE | 2021-11-23 15:28 | PHA.MEDREC ---
Pharmacy Consult ? Medication Reconciliation Pharmacy has completed the medication reconciliation. spoke with pt. he also takes a supplement called Relora twice daily. He took aspirin 81 mg today, but said not taking any more now?
[2021-11-23 15:55] LABS: COVID-19 Test Negative (Negative)
[2021-11-23] MEDS: Pantoprazole Sodium 40 MG/10 ML VIAL IVPUSH ×2 (16:28→21:19)
--- NOTE | 2021-11-23 16:44 | P.CNGI_ITS ---
History of Present Illness Data of Consult Service Date: 11/23/21 Requesting physician: Tahira Singh Primary Care Provider: Chay Acevedo MD HPI Reason for consult: Acute blood loss anemia 61 yr old m with hx of sleeve gastrectomy revised to gastric bypass 02/2021, adrenal gland surgery, HTN, depression who I am seeing for assessment for acute blood loss anemia. Patient had noted last few days passing black stools, associated with 7/10 epigastric pain radiating into the lower abdomen which is much improved now after receiving pain medication. He finally came in today after noted the stool seemed more maroon and he was also feeling more weak and tired. Denies SOB or chest pain. He did have one episode of nausea with non bloody emesis. Appetite has been fair, no fevers or chills. He does smoke cigars and been taking aspirin daily for years. He drinks alcohol occasionally. Has been having a lot of stress due to work and going thru a divorce. Last colonoscopy 1 yr at [facility] and normal per his report He has been ordered platelets and a unit of PRBC by ED, commenced on IV PPI. A Ct was done with no active bleeding noted, personally reviewed, Review of Systems Review of Systems: Constitutional : No Weight loss, No Fever, No Chills ENT/Mouth : No sore throat, No Rhinorrhea Eyes: No Swelling, No Redness Cardiovascular : No Chest Pain, No SOB, No Edema Respiratory : No Cough, No Sputum, No Wheezing Gastrointestinal : see HPI Genitourinary : NO Dysuria, No Urinary Frequency, No Hematuria, No Urgency Musculoskeletal : No joint pain, No Myalgias, No Joint Swelling Skin : No Skin Lesions, No rash Neuro : + Weakness, No Numbness, No Dizziness, No Headache Psych : No Anxiety/Panic, No Depression Heme/Lymph: No Bruising, No Lymphadenopathy Endocrine : No Polyuria, No Polydipsia All other systems reviewed and are negative. [facility] Past Medical History Medical History Acid reflux Arthritis Depression Gout Heart murmur Hiatal hernia History of concussion HTN (hypertension) Intestinal malabsorption following gastrectomy Migraines Pre-diabetes Preoperative testing Right rotator cuff tear Sleep apnea Family History Family History Father CHF (congestive heart failure) Mother Breast cancer Brother No problems noted. Brother No problems noted. Sister No problems noted. Sister No problems noted. Son No problems noted. Daughter Mast cell disorder Chriss-Danlos syndrome Chiari malformation Surgical History Surgical History H/O nasal septoplasty History of ankle surgery History of gastric bypass History of repair of hiatal hernia History of sleeve gastrectomy History of tonsillectomy History of total adrenalectomy Hx of colonoscopy S/P gastric bypass Status post left foot surgery Social History Social History Are you a primary care support representative to a significant other at home: No Do you presently have visiting nurse or other home services: No Alcohol intake: current Alcohol intake frequency: holidays/special occasions only Patient Tobacco Use Status: Former Tobacco user Quit Date: 1999 Tobacco use type: Cigar Use of substances other than those prescribed or required for medical reasons: No Substance Use Type: Marijuana Advance Directives: No Advance Directives Information Provided: Yes Meds Allergies Allergy/AdvReac Type Severity Reaction Status Date / Time No Known Allergies Allergy Verified 09/20/21 11:33 Active Medications: Current Medications Pantoprazole Sodium (Pantoprazole Sodium 40 Mg/10 Ml Vial) 40 mg IVPUSH BID [facility] Pharmacy Consult (Consult Rx Perform Med Rec) 1 each MISCELLANE ONCE PRN PRN Reason: Consult order Pharmacy Consult (Consult Rx Perform Med Rec) 1 each MISCELLANE ONCE PRN PRN Reason: Consult order Home Medications Medication Instructions Recorded Confirmed Last Taken Type albuterol sulfate 90 mcg/actuation 2 puff INHALATION Q4-6H PRN 08/28/20 11/23/21 Unknown History aerosol inhaler (ProAir HFA) ascorbate calcium (vitamin C) 500 500 mg PO DAILY 08/28/20 11/23/21 Unknown History mg tablet colchicine 0.6 mg tablet 0.6 mg PO DAILY PRN tab 08/28/20 11/23/21 Unknown History iron,carbonyl 30 mg-folic acid 800 1 tab PO DAILY 08/28/20 11/23/21 Unknown History [id number] chewable tablet (Opurity Multivitamin) valsartan 160 mg tablet 160 mg PO DAILY 08/28/20 11/23/21 Unknown History trazodone 50 mg tablet 200 mg PO BEDTIME PRN tab 04/01/21 11/23/21 Unknown History calcium citrate 1,000 mg tablet 1,000 mg PO DAILY 04/30/21 11/23/21 Unknown History diphenhydramine HCl 25 mg capsule 50 mg PO BEDTIME cap 04/30/21 11/23/21 Unknown History (Benadryl) allopurinol 300 mg tablet 300 mg PO DAILY 11/23/21 11/23/21 Unknown History aspirin 81 mg chewable tablet 81 mg PO DAILY 11/23/21 11/23/21 11/23/21 History atorvastatin 40 mg tablet 1 tab PO DAILY 11/23/21 11/23/21 Unknown History buspirone 10 mg tablet 1 tab PO BID PRN 11/23/21 11/23/21 Unknown History buspirone 10 mg tablet 1 tab PO DAILY 11/23/21 11/23/21 Unknown History cholecalciferol (vitamin D3) 25 25 mcg PO DAILY 11/23/21 11/23/21 Unknown History mcg (1,000 unit) tablet tamsulosin 0.4 mg capsule 1 cap PO DAILY 11/23/21 11/23/21 Unknown History Physical Exam Vital Signs: Vital Signs: Last Vital Signs Temp 99.0 F 11/23/21 16:31 Pulse 56 11/23/21 16:31 Resp 16 11/23/21 16:31 BP 106/55 L 11/23/21 16:31 Pulse Ox 99 11/23/21 14:32 BMI result Body Mass Index 27.8 EXAM: GENERAL: The patient is relaxed, comfortable VITAL SIGNS:see workflow HEENT: Nonicteric sclerae, PERRLA, EOMI. Oropharynx clear. Moist mucous membranes. Conjunctivae appear well perfused. No thyroid mass. CHEST: Chest wall is nontender. HEART: Regular rate and rhythm without murmurs. LUNGS: Clear to auscultation bilaterally. ABDOMEN: Soft, positive bowel sounds, tender epigastrium, no organomegaly.no flank tenderness, no guarding SKIN: No rash, no excessive bruising, petechiae, or purpura. NEUROLOGIC: Cranial nerves II-XII intact without motor/sensory deficit. MS-nml Results Labs CBC & Chem 7: 11/23/21 13:41 11/23/21 12:19 Labs: Short CBC 11/23/21 11/23/21 Range/Units 12:19 13:41 WBC 4.3 L (4.8-10.8) X10*3/uL Hgb 9.4 L 9.0 L (14.0-18.0) g/dl Hct 28.3 L 27.1 L (42.0-52.0) % Plt Count 169 (160-400) X10*3/uL BMP 11/23/21 12:19 Sodium 142 Potassium 4.1 Chloride 110 H Carbon Dioxide 30 H BUN 30 H Creatinine 0.65 Calcium 8.9 Liver Function 11/23/21 Range/Units 12:19 Total Bilirubin 0.8 (0.0-1.0) mg/dL Direct Bilirubin 0.4 (0.0-0.5) mg/dL AST 34 (5-37) U/L ALT 54 H (0-40) U/L Alkaline Phosphatase 50 (39-117) U/L Albumin 3.5 (3.5-5.0) g/dL Assessment and Plan (1) Acute GI bleeding: Status: Acute (2) Blood in stool: Status: Acute Plan 1/ Acute blood loss anemia, most likely cause would be anastomotic ulcer given the history of aspirin use and cigar smoking, ddx; esophagitis, dieulafoy lesion, small bowel bleed, right sided colonic bleed e.g from AVM PLAN; 1/ OK to have clears, NPO after midnight. 2/ EGD tomorrow--I am not here but I have discussed with Dr Peguero and Yassine who will kindly see if they can scope the patient otherwise I will do it on . Details given to OR front end application developer. 3/ Cont IV PPI, can give infusion or bolus dosing BID 4/ transfuse if HGB <7 5/ smoking cessation, hold aspirin and avoid nsaids for the moment 6/ check stool antigen for H pylori Procedures Date of Service Date of Service: 11/23/21
--- NOTE | 2021-11-23 17:08 | P.HPHOSP_ITS ---
History of Present Illness Date of Service: 11/23/21 Attending physician on admission: Kenny Markham Chief Complaint: GIB 61-year-old male with past medical history of multiple bariatric surgeries-last bariatric surgery of revision was done in February 2021: Since then patient said he lost approximately around 100 lb, He came to the hospital due to started noticing black stools for 3 days and has on and off abdominal pain, yesterday he noticed maroon stools, and heard significant pain also in the abdominal area-epigastric and left lower quadrant area-so decided to come to the hospital. He said that he still has abdominal pain, also he had nausea and vomited once without blood today. Patient was using aspirin since last in year-as per the patient was given by PCP -unclear reason. Denies any use of NSAIDs. He also claims to use 1 -2 cigar per weekly. Denies any alcohol or recreation drug use. Denies any previous history of GI bleed. Patient labs: 9.0/27 -last h/h 13.2/28.3 in 03/18/21. BMP seems mild pre renal azotemia CT/CT abdomen pelvis w con IMPRESSION: Postoperative changes from gastric bypass. Mild diverticulosis. No evidence of diverticulitis or colitis. Enlarged prostate gland. Left lower lobe pulmonary nodules. ? Fleischner guidelines were followed. Review of Systems Review of Systems: Denies any new complaint of chest pain or shortness of danika th or fever or chills Denies any cough Denies any weakness or numbness. has abdominal pain PMFSH Medical History Acid reflux Arthritis Depression Gout Heart murmur Hiatal hernia History of concussion HTN (hypertension) Intestinal malabsorption following gastrectomy Migraines Pre-diabetes Preoperative testing Right rotator cuff tear Sleep apnea Family History Father CHF (congestive heart failure) Mother Breast cancer Brother No problems noted. Brother No problems noted. Sister No problems noted. Sister No problems noted. Son No problems noted. Daughter Mast cell disorder Chriss-Danlos syndrome Chiari malformation Pertinent family history: Hypertension runs in the family-apparent and multiple sibling had hypertension Surgical History H/O nasal septoplasty History of ankle surgery History of gastric bypass History of repair of hiatal hernia History of sleeve gastrectomy History of tonsillectomy History of total adrenalectomy Hx of colonoscopy S/P gastric bypass Status post left foot surgery Social History Are you a primary resident care provider to a significant other at home: No Do you presently have visiting nurse or other home services: No Alcohol intake: current Alcohol intake frequency: holidays/special occasions only Patient Tobacco Use Status: Former Tobacco user Quit Date: 1999 Tobacco use type: Cigar Use of substances other than those prescribed or required for medical reasons: No Substance Use Type: Marijuana Advance Directives: No Advance Directives Information Provided: Yes Meds Allergies Allergy/AdvReac Type Severity Reaction Status Date / Time No Known Allergies Allergy Verified 09/20/21 11:33 Active Medications: Current Medications Sodium Chloride (Ns) 1,000 mls @ 80 mls/hr IVCONT .[id number] [facility] Ondansetron HCl (Ondansetron Hcl 4 Mg/2 Ml Vial) 4 mg IVPUSH Q6H PRN PRN Reason: nausea Pantoprazole Sodium (Pantoprazole Sodium 40 Mg/10 Ml Vial) 40 mg IVPUSH BID [facility] Pharmacy Consult (Consult Rx Perform Med Rec) 1 each MISCELLANE ONCE PRN PRN Reason: Consult order Pharmacy Consult (Consult Rx Perform Med Rec) 1 each MISCELLANE ONCE PRN PRN Reason: Consult order Sodium Chloride (0.9 % Sodium Chloride Flush 3 Ml Syringe) 3 ml IVFLUSH QSHIFT [facility] Home Medications Medication Instructions Recorded Confirmed Last Taken Type albuterol sulfate 90 mcg/actuation 2 puff INHALATION Q4-6H PRN 08/28/20 11/23/21 Unknown History aerosol inhaler (ProAir HFA) ascorbate calcium (vitamin C) 500 500 mg PO DAILY 08/28/20 11/23/21 Unknown History mg tablet colchicine 0.6 mg tablet 0.6 mg PO DAILY PRN tab 08/28/20 11/23/21 Unknown History iron,carbonyl 30 mg-folic acid 800 1 tab PO DAILY 08/28/20 11/23/21 Unknown History ebb-[id number]-wbnx chewable tablet (Opurity Multivitamin) valsartan 160 mg tablet 160 mg PO DAILY 08/28/20 11/23/21 Unknown History trazodone 50 mg tablet 200 mg PO BEDTIME PRN tab 04/01/21 11/23/21 Unknown History calcium citrate 1,000 mg tablet 1,000 mg PO DAILY 04/30/21 11/23/21 Unknown History diphenhydramine HCl 25 mg capsule 50 mg PO BEDTIME cap 04/30/21 11/23/21 Unknown History (Benadryl) allopurinol 300 mg tablet 300 mg PO DAILY 11/23/21 11/23/21 Unknown History aspirin 81 mg chewable tablet 81 mg PO DAILY 11/23/21 11/23/21 11/23/21 History atorvastatin 40 mg tablet 1 tab PO DAILY 11/23/21 11/23/21 Unknown History buspirone 10 mg tablet 1 tab PO BID PRN 11/23/21 11/23/21 Unknown History buspirone 10 mg tablet 1 tab PO DAILY 11/23/21 11/23/21 Unknown History cholecalciferol (vitamin D3) 25 25 mcg PO DAILY 11/23/21 11/23/21 Unknown History mcg (1,000 unit) tablet tamsulosin 0.4 mg capsule 1 cap PO DAILY 11/23/21 11/23/21 Unknown History Physical Exam Vital Signs and Narrative: Vital Signs: Last Vital Signs Temp 99.0 F 11/23/21 16:31 Pulse 56 11/23/21 16:31 Resp 16 11/23/21 16:31 BP 106/55 L 11/23/21 16:31 Pulse Ox 99 11/23/21 14:32 BMI result Body Mass Index 27.8 Appearance: Alert.? Oriented X3.? not in distress.? Eyes: Pupils equal, round and reactive to light.? Sclera nonicteric.? ENT: Pharynx normal.? Moist mucous membranes. cvs: rrr, [id number] , no murmur res: clear to auscultation ,no rhonchii or wheezing abd: no rebound or guarding ,epigastric and left lower abd discomfort, bs present. ext pulses present , no cyanosis . neuro: axo3 , nonfocal. Results Labs CBC and Chem 7: 11/23/21 13:41 11/23/21 12:19 Labs: Laboratory Results - last 24 hr 11/23/21 11/23/21 11/23/21 12:19 12:19 12:19 MCV 85.8 MCH 28.5 MCHC 33.2 RDW 14.5 Plt Count 169 MPV 10.1 Immature Gran % (Auto) 0.2 Neut % (Auto) 64.2 Lymph % (Auto) 26.3 [place] % (Auto) 7.0 Eos % (Auto) 2.1 Baso % (Auto) 0.2 Lymph # (Auto) 1.1 L [place] # (Auto) 0.3 Eos # (Auto) 0.1 Baso # (Auto) 0.0 Abs Immat Gran (auto) 0.01 Absolute Neuts (auto) 2.7 Absolute Nucleated RBC 0.000 Nucleated RBC % (auto) 0.0 PT INR Anion Gap 6 L Estim Creat Clear Calc 118.3 Estimated GFR > 60 Random Glucose 92 Calcium 8.9 Total Bilirubin 0.8 Direct Bilirubin 0.4 AST 34 ALT 54 H Alkaline Phosphatase 50 Troponin I High Sens 22.6 Total Protein 5.2 L Albumin 3.5 Lipase 54 Stool Occult Blood COVID-19 (LINDA) COVID-[facility] Blood Type Antibody Screen Crossmatch 11/23/21 11/23/21 11/23/21 12:19 12:22 13:32 MCV MCH MCHC RDW Plt Count MPV Immature Gran % (Auto) Neut % (Auto) Lymph % (Auto) [place] % (Auto) Eos % (Auto) Baso % (Auto) Lymph # (Auto) [place] # (Auto) Eos # (Auto) Baso # (Auto) Abs Immat Gran (auto) Absolute Neuts (auto) Absolute Nucleated RBC Nucleated RBC % (auto) PT 14.4 H INR 1.3 H Anion Gap Estim Creat Clear Calc Estimated GFR Random Glucose Calcium Total Bilirubin Direct Bilirubin AST ALT Alkaline Phosphatase Troponin I High Sens Total Protein Albumin Lipase Stool Occult Blood POSITIVE COVID-19 (LINDA) COVID-[facility] Blood Type A Positive Antibody Screen NEGATIVE Crossmatch See Detail 11/23/21 15:36 MCV MCH MCHC RDW Plt Count MPV Immature Gran % (Auto) Neut % (Auto) Lymph % (Auto) [place] % (Auto) Eos % (Auto) Baso % (Auto) Lymph # (Auto) [place] # (Auto) Eos # (Auto) Baso # (Auto) Abs Immat Gran (auto) Absolute Neuts (auto) Absolute Nucleated RBC Nucleated RBC % (auto) PT INR Anion Gap Estim Creat Clear Calc Estimated GFR Random Glucose Calcium Total Bilirubin Direct Bilirubin AST ALT Alkaline Phosphatase Troponin I High Sens Total Protein Albumin Lipase Stool Occult Blood COVID-19 (LINDA) Negative COVID-19 Clin Com See Note Blood Type Antibody Screen Crossmatch Imaging Radiologist's Impressions: Impressions Abdomen/Pelvis CT 11/23/21 14:14 IMPRESSION: Postoperative changes from gastric bypass. Mild diverticulosis. No evidence of diverticulitis or colitis. Enlarged prostate gland. Left lower lobe pulmonary nodules. Fleischner guidelines were followed. Assessment and Plan (1) Acute GI bleeding: Status: Acute (2) Blood in stool: Status: Acute Plan 61-year-old male with past medical history of multiple bariatric surgeries-last bariatric surgery of revision was done in February 2021,also was taking asa unclear reason: Came with abdominal pain and GI bleed. 1. GI bleed: ED physician discussed the case with bariatric and GI-started the patient on PPIs, also ordered PRBC and platelets-follow up with GI No new nausea vomiting or bleed says currently in the ED Hold aspirin GI evaluation in the morning npo Monitor h/h closely-next h/h this evening 2.HTn:blood pressure controlled, hold losartan 3.Gerd: ON PPI 4 : Hx of gout: Continue home medications. 5. DVT prophylaxis: Mechanical devices. Above management discussed with patient in detail length he understand in agreement with the above plan, time spent 70 minute. Quality Stroke Does the patient have a stroke diagnosis?: No VTE Prior VTE?: No VTE Risk Level:: Medical - moderate - high VTE Device Contraindication: N/A - Device Ordered VTE Drug Contraindication: N/A - Med Ordered
[2021-11-23] MEDS: 0.9 % Sodium Chloride 1,000 ML 80 ML IVCONT (17:26)
[2021-11-23] MEDS: diphenhydrAMINE HCL 25 MG TABLET 50 MG PO (19:58)
[2021-11-23] MEDS: 0.9 % Sodium Chloride Flush 3 ML SYRINGE IVFLUSH (21:19)
[2021-11-23 22:23] LABS: Hematocrit 22.8 % (42.0-52.0); Hemoglobin 7.7 g/dl (14.0-18.0)
[2021-11-23] MEDS: traZODone HCL 100 MG TABLET 200 MG PO (23:24)
[2021-11-24] VITALS (30 sets, daily range): BP systolic 84–162; BP diastolic 37–84; PULSE 55–109; RESP 14–20; TEMP 36.3–37.6; O2SAT 92–100
[2021-11-24] MEDS: 0.9 % Sodium Chloride 1,000 ML 80 ML IVCONT (03:22)
[2021-11-24 07:15] LABS: Hematocrit 22.1 % (42.0-52.0); Hemoglobin 7.4 g/dl (14.0-18.0); Mean Corpuscular HGB Conc 33.5 g/dl (31.0-36.0); Mean Corpuscular Hemoglobin 28.9 pg (27.0-33.0); Mean Corpuscular Volume 86.3 fL (80.0-98.0); Mean Platelet Volume 10.6 fL (9.4-12.4); Platelet Count 153 X10*3/uL (160-400); Red Blood Count 2.56 X10*6/uL (4.60-5.80); Red Cell Distribution Width 14.6 % (11.0-16.0); White Blood Count 5.3 X10*3/uL (4.8-10.8)
[2021-11-24 07:52] LABS: Anion Gap 10 (12-20); Blood Urea Nitrogen 29 mg/dL (9-16); Calcium 8.1 mg/dL (8.4-10.2); Carbon Dioxide 26 mmol/L (22-29); Chloride 110 mmol/L (96-108); Creatinine Clr Calc Pharmacy 133.2; Estimated Glomerular Filt Rate > 60; Glucose Random 85 mg/dL (60-115); Potassium 3.9 mmol/L (3.3-5.1); Sodium 140 mmol/L (135-145)
--- NOTE | 2021-11-24 08:20 | HO.PM.IMPN ---
Subjective Subjective Date of Service: 11/24/21 Interval History: GIB Review of Systems Upper GI bleed-related to and a stoma site ulcer status post EGD. Patient tolerated the procedure well, denies any chest pain or shortness of breath abdominal pain or fever chills or cough or phlegm So far no new episode of bleeding Last episode was this morning before EGD. Physical Exam Vital Signs: Vital Signs: Last Vital Signs Temp 98.3 F 11/24/21 07:55 Pulse 95 11/24/21 08:14 Resp 18 11/24/21 07:55 BP 84/51 L 11/24/21 08:14 Pulse Ox 99 11/24/21 07:55 BMI result Body Mass Index 30.3 Appearance: Alert.? Oriented X3.? not in distress.? cvs: rrr, [id number] , no murmur res: clear to auscultation ,no rhonchii or wheezing abd: no rebound or guarding ,nt, bs present. ext pulses present , no cyanosis . neuro: axo3 , nonfocal. Objective Data Active Medications Albuterol Sulfate (Albuterol Sulfate 90 Mcg 8 Gm Inhaler) 2 puff INHALE Q46H PRN PRN Reason: Wheezing Allopurinol (Allopurinol 300 Mg Tablet) 300 mg PO DAILY JACOB Ascorbic Acid (Ascorbic Acid 500 Mg Tablet) 500 mg PO DAILY JACOB Atorvastatin Calcium (Atorvastatin Calcium 40 Mg Tablet) 40 mg PO DAILY JACOB Buspirone HCl (Buspirone Hcl 10 Mg Tablet) 10 mg PO BID PRN PRN Reason: Anxiety Buspirone HCl (Buspirone Hcl 10 Mg Tablet) 10 mg PO DAILY [facility] Calcium Carbonate (Calcium Carbonate 500 Mg Tablet) 1,000 mg PO DAILY JACOB Colchicine (Colchicine 0.6 Mg Tablet) 0.6 mg PO DAILY PRN PRN Reason: gout Diphenhydramine HCl (Diphenhydramine Hcl 25 Mg Tablet) 50 mg PO BEDTIME [facility] Last Admin: 11/23/21 19:58 Dose: 50 mg Documented by: TOMER Sodium Chloride (Ns) 1,000 mls @ 80 mls/hr IVCONT .[id number] [facility] Last Admin: 11/24/21 03:22 Dose: 80 mls/hr Documented by: PARAS Ondansetron HCl (Ondansetron Hcl 4 Mg/2 Ml Vial) 4 mg IVPUSH Q6H PRN PRN Reason: nausea Pantoprazole Sodium (Pantoprazole Sodium 40 Mg/10 Ml Vial) 40 mg IVPUSH BID [facility] Last Admin: 11/23/21 21:19 Dose: 40 mg Documented by: PARAS Pharmacy Consult (Consult Rx Perform Med Rec) 1 each MISCELLANE ONCE PRN PRN Reason: Consult order Pharmacy Consult (Consult Rx Perform Med Rec) 1 each MISCELLANE ONCE PRN PRN Reason: Consult order Sodium Chloride (0.9 % Sodium Chloride Flush 3 Ml Syringe) 3 ml IVFLUSH QSHIFT [facility] Last Admin: 11/24/21 07:24 Dose: Not Given Documented by: QUENTIN Non-Admin Reason: IV Running Tamsulosin HCl (Tamsulosin Hcl 0.4 Mg Capsule) 0.4 mg PO DAILY [facility] Trazodone HCl (Trazodone Hcl 100 Mg Tablet) 200 mg PO BEDTIME PRN PRN Reason: Sleep Last Admin: 11/23/21 23:24 Dose: 200 mg Documented by: PARAS Vitamin D (Cholecalciferol (Vitamin D3) 25 Mcg Tablet) 25 mcg PO DAILY [facility] Labs CBC & Chem 7: 11/24/21 06:28 11/24/21 06:28 Labs: Laboratory Results - last 24 hr 11/23/21 11/23/21 11/23/21 12:19 12:19 12:19 MCV 85.8 MCH 28.5 MCHC 33.2 RDW 14.5 Plt Count 169 MPV 10.1 Immature Gran % (Auto) 0.2 Neut % (Auto) 64.2 Lymph % (Auto) 26.3 [place] % (Auto) 7.0 Eos % (Auto) 2.1 Baso % (Auto) 0.2 Lymph # (Auto) 1.1 L [place] # (Auto) 0.3 Eos # (Auto) 0.1 Baso # (Auto) 0.0 Abs Immat Gran (auto) 0.01 Absolute Neuts (auto) 2.7 Absolute Nucleated RBC 0.000 Nucleated RBC % (auto) 0.0 PT INR Anion Gap 6 L Estim Creat Clear Calc 118.3 Estimated GFR > 60 Random Glucose 92 Calcium 8.9 Total Bilirubin 0.8 Direct Bilirubin 0.4 AST 34 ALT 54 H Alkaline Phosphatase 50 Troponin I High Sens 22.6 Total Protein 5.2 L Albumin 3.5 Lipase 54 Stool Occult Blood COVID-19 (LINDA) COVID-Inspirato Com Blood Type Antibody Screen Crossmatch 11/23/21 11/23/21 11/23/21 12:19 12:22 13:32 MCV MCH MCHC RDW Plt Count MPV Immature Gran % (Auto) Neut % (Auto) Lymph % (Auto) [place] % (Auto) Eos % (Auto) Baso % (Auto) Lymph # (Auto) [place] # (Auto) Eos # (Auto) Baso # (Auto) Abs Immat Gran (auto) Absolute Neuts (auto) Absolute Nucleated RBC Nucleated RBC % (auto) PT 14.4 H INR 1.3 H Anion Gap Estim Creat Clear Calc Estimated GFR Random Glucose Calcium Total Bilirubin Direct Bilirubin AST ALT Alkaline Phosphatase Troponin I High Sens Total Protein Albumin Lipase Stool Occult Blood POSITIVE COVID-19 (LINDA) COVID-Forever His Transport Blood Type A Positive Antibody Screen NEGATIVE Crossmatch See Detail 11/23/21 11/24/21 11/24/21 15:36 06:28 06:28 MCV 86.3 MCH 28.9 MCHC 33.5 RDW 14.6 Plt Count 153 L MPV 10.6 Immature Gran % (Auto) Neut % (Auto) Lymph % (Auto) [place] % (Auto) Eos % (Auto) Baso % (Auto) Lymph # (Auto) [place] # (Auto) Eos # (Auto) Baso # (Auto) Abs Immat Gran (auto) Absolute Neuts (auto) Absolute Nucleated RBC 0.000 Nucleated RBC % (auto) 0.0 PT INR Anion Gap 10 L Estim Creat Clear Calc 133.2 Estimated GFR > 60 Random Glucose 85 Calcium 8.1 L D Total Bilirubin Direct Bilirubin AST ALT Alkaline Phosphatase Troponin I High Sens Total Protein Albumin Lipase Stool Occult Blood COVID-19 (LINDA) Negative COVID-Forever His Transport See Note Blood Type Antibody Screen Crossmatch Assessment and Plan (1) Acute GI bleeding: Status: Acute (2) GI bleed: Status: Acute Plan 61-year-old male with past medical history of multiple bariatric surgeries-last bariatric surgery of revision was done in February 2021,also was taking asa unclear reason:? Came with abdominal pain and GI bleed. 1. GI bleed: ED physician discussed the case with bariatric and GI-started the patient on PPIs, also ordered PRBC and platelets-follow up with GI No new nausea vomiting or bleed says currently in the ED Hold aspirin Patient is status post EGD: Nearly circumferential large anastomotic ulcer with retained sutures, and with a probable vessel on distal margin and in the base of the ulcer--no active bleeding-treated with epi with good hemostasis. Vessel treated withGold probe with good hemostasis Entire ulcer then treated with Hemospray. GI recommended: continue ?IV PPI constant infusion, sucralfate suspension, NPO, Serial Hgb, and continued close surgical follow up given high risk of rebleed. If he rebleeds options would include surgery or Therapeutic Angiography by IR.? Called but was only able to leave a message on her VM. If rebleed again -will call bariatric surgery for further management. Discussed with GI and bariatric surgery: Will transfuse 2 PRBC and 2 platelets more. Monitor H&H closely. 2.HTn:blood pressure controlled, hold losartan 3.Gerd: ON PPI 4 :? Hx of gout: Continue home medications. 5. DVT prophylaxis:? Mechanical devices. Quality Stroke Does the patient have a stroke diagnosis?: No VTE Prior VTE?: No VTE Risk Level:: Medical - moderate - high VTE Device Contraindication: N/A - Device Ordered VTE Drug Contraindication: N/A - Med Ordered
[2021-11-24] MEDS: Pantoprazole Sodium 40 MG/10 ML VIAL IVPUSH (08:47)
--- NOTE | 2021-11-24 10:04 | MHC.CM.PN ---
met with pt who lives with and is independent and working he is vax x 3 has own ride home dc plan home no servces
--- NOTE | 2021-11-24 10:51 | P.CONGS_ITS ---
History of Present Illness Consult details Consult date: 11/24/21 Reason for consult: other (epigastric pain and black stools s/p RNYGBP) Narrative: 61 yo man who is s/p LSG conversion to GBP by Dr Frances on March 17, 2021. Pt was last seen in bariatric office August 2020 without complaints. He called our office yesterday with report of black stool mixed with red blood x 2 days. He denied epigastric pain at that time but did admit to LLQ pain and dizziness when standing up. He stated no diarrhea but emesis x 1 of clear, non bloody fluid. Mild pressure like epigastric pain started once he was in ED. Patient has not been taking any PPI, except for a few days about 1 week ago when the pain started. He smokes 2 cigars per week, has beer weekly on Fridays and take a 81 mg ASA daily. He denies any NSAID use. He had normal colonoscopy last year per patient. Once this information was ascertained from patient I recommended that he go directly [place] [facility] [place]. Upon arrival to ED, his VS were stable and his hgb was 9.4. Dr Buchanan, [facility] was aware and we recommended that he receive platelets (received 1 unit) along with any RBC's (2 U in ED yesterday). CT of abd yesterday with IV contrast, revealed mild diverticulosis, pulmonary nodules and enlarged prostate. Patient states that overnight at 3:30 am he had a very large BM with lost of very dark blood and then once again about 8:30 this am. His hgb dropped to 7.4 this am and per GI he will have endoscopy now for what is most likely to be a bleeding anastomotic ulcer. Review of Systems Review of Systems: see HPI Yes all other systems are reviewed and are nega tive Constitutional: Constitutional: Reports no additional constitutional complaints Cardiovascular: Cardiovascular: Denies chest pain at rest, Denies chest pain with activity, Denies leg edema, Denies palpitations and Denies dyspnea Respiratory: Respiratory: Denies cough, Denies hemoptysis and Denies dyspnea Gastrointestinal: Gastrointestinal: Reports as per HPI, Denies coffee ground emesis and Denies constipation Endocrine: Endocrine: Denies palpitations PMFSH Past Medical History Medical History Acid reflux Arthritis Depression Gout Heart murmur Hiatal hernia History of concussion HTN (hypertension) Intestinal malabsorption following gastrectomy Migraines Pre-diabetes Preoperative testing Right rotator cuff tear Sleep apnea Family History Family History Father CHF (congestive heart failure) Mother Breast cancer Brother No problems noted. Brother No problems noted. Sister No problems noted. Sister No problems noted. Son No problems noted. Daughter Mast cell disorder Chriss-Danlos syndrome Chiari malformation Surgical History Surgical History H/O nasal septoplasty History of ankle surgery History of gastric bypass History of repair of hiatal hernia History of sleeve gastrectomy History of tonsillectomy History of total adrenalectomy Hx of colonoscopy Hx of esophagogastroduodenoscopy S/P gastric bypass Status post left foot surgery Social History Social History Are you a primary manager wound care to a significant other at home: No Do you presently have visiting nurse or other home services: No Alcohol intake: current Alcohol intake frequency: holidays/special occasions only Patient Tobacco Use Status: Current someday Tobacco user Tobacco use type: Cigar Use of substances other than those prescribed or required for medical reasons: No Substance Use Type: Marijuana Are you DNR?: No Advance Directives: No Advance Directives Information Provided: Yes service: No Meds Allergies Allergy/AdvReac Type Severity Reaction Status Date / Time No Known Allergies Allergy Verified 11/24/21 10:22 Active Medications: Current Medications Albuterol Sulfate (Albuterol Sulfate 90 Mcg 8 Gm Inhaler) 2 puff INHALE Q46H PRN PRN Reason: Wheezing Allopurinol (Allopurinol 300 Mg Tablet) 300 mg PO DAILY [facility] Ascorbic Acid (Ascorbic Acid 500 Mg Tablet) 500 mg PO DAILY JACOB Atorvastatin Calcium (Atorvastatin Calcium 40 Mg Tablet) 40 mg PO DAILY JAC[facility] Buspirone HCl (Buspirone Hcl 10 Mg Tablet) 10 mg PO BID PRN PRN Reason: Anxiety Buspirone HCl (Buspirone Hcl 10 Mg Tablet) 10 mg PO DAILY [facility] Calcium Carbonate (Calcium Carbonate 500 Mg Tablet) 1,000 mg PO DAILY JACOB Colchicine (Colchicine 0.6 Mg Tablet) 0.6 mg PO DAILY PRN PRN Reason: gout Diphenhydramine HCl (Diphenhydramine Hcl 25 Mg Tablet) 50 mg PO BEDTIME [facility] Last Admin: 11/23/21 19:58 Dose: 50 mg Documented by: Sodium Chloride (Ns) 1,000 mls @ 80 mls/hr IVCONT .[id number] [facility] Last Admin: 11/24/21 03:22 Dose: 80 mls/hr Documented by: Sodium Chloride (Ns) 1,000 mls @ 100 mls/hr IVCONT .Q10H JACOB Sodium Chloride (Ns) 1,000 mls @ 500 mls/hr IVCONT .Q2H [facility] Stop: 11/24/21 10:59 Pantoprazole Sodium 80 mg/ (Sodium Chloride) 100 mls @ 10 mls/hr IV .Q10H [facility] Ondansetron HCl (Ondansetron Hcl 4 Mg/2 Ml Vial) 4 mg IVPUSH Q6H PRN PRN Reason: nausea Pharmacy Consult (Consult Rx Perform Med Rec) 1 each MISCELLANE ONCE PRN PRN Reason: Consult order Sodium Chloride (0.9 % Sodium Chloride Flush 3 Ml Syringe) 3 ml IVFLUSH QSHIFT [facility] Last Admin: 11/24/21 07:24 Dose: Not Given Documented by: Tamsulosin HCl (Tamsulosin Hcl 0.4 Mg Capsule) 0.4 mg PO DAILY [facility] Trazodone HCl (Trazodone Hcl 100 Mg Tablet) 200 mg PO BEDTIME PRN PRN Reason: Sleep Last Admin: 11/23/21 23:24 Dose: 200 mg Documented by: Vitamin D (Cholecalciferol (Vitamin D3) 25 Mcg Tablet) 25 mcg PO DAILY [facility] Home Medications Medication Instructions Recorded Confirmed Last Taken Type albuterol sulfate 90 mcg/actuation 2 puff INHALATION Q4-6H PRN 08/28/20 11/23/21 Unknown History aerosol inhaler (ProAir HFA) ascorbate calcium (vitamin C) 500 500 mg PO DAILY 08/28/20 11/23/21 Unknown History mg tablet colchicine 0.6 mg tablet 0.6 mg PO DAILY PRN tab 08/28/20 11/23/21 Unknown History iron,carbonyl 30 mg-folic acid 800 1 tab PO DAILY 08/28/20 11/23/21 Unknown History [id number] chewable tablet (Opurity Multivitamin) valsartan 160 mg tablet 160 mg PO DAILY 08/28/20 11/23/21 Unknown History trazodone 50 mg tablet 200 mg PO BEDTIME PRN tab 04/01/21 11/23/21 Unknown History calcium citrate 1,000 mg tablet 1,000 mg PO DAILY 04/30/21 11/23/21 Unknown History diphenhydramine HCl 25 mg capsule 50 mg PO BEDTIME cap 04/30/21 11/23/21 Unknown History (Benadryl) allopurinol 300 mg tablet 300 mg PO DAILY 11/23/21 11/23/21 Unknown History aspirin 81 mg chewable tablet 81 mg PO DAILY 11/23/21 11/23/21 11/23/21 History atorvastatin 40 mg tablet 1 tab PO DAILY 11/23/21 11/23/21 Unknown History buspirone 10 mg tablet 1 tab PO BID PRN 11/23/21 11/23/21 Unknown History buspirone 10 mg tablet 1 tab PO DAILY 11/23/21 11/23/21 Unknown History cholecalciferol (vitamin D3) 25 25 mcg PO DAILY 11/23/21 11/23/21 Unknown History mcg (1,000 unit) tablet tamsulosin 0.4 mg capsule 1 cap PO DAILY 11/23/21 11/23/21 Unknown History Physical Exam Vital Signs: Vital Signs: Last Vital Signs Temp 98.5 F 11/24/21 10:23 Pulse 55 11/24/21 10:23 Resp 16 11/24/21 10:23 BP 104/37 L 11/24/21 10:23 Pulse Ox 98 11/24/21 10:23 BMI result Body Mass Index 30.3 Const: General: cooperative, comfortable and no acute distress Nutritional Appearance: overweight Orientation/consciousness: patient oriented x3 Limitations: no limitations GI: Other: Pt examined in pre op area. Inspection: Yes normal to inspection, No distended and Yes scar (well healed laparoscopic incisions) Palpation (GI): Soft to palpation, nontender, no guarding, not rigid, no hernias, no masses and No Ascites present Rectal Exam - Male: Yes deferred Neuro: General: patient oriented x3 Extrem: General: No normal to inspection, No no pedal edema and No no calf tenderness Results Labs Result diagrams: 11/24/21 06:28 11/24/21 06:28 Labs: Abnormal lab results 11/23/21 11/23/21 11/23/21 Range/Units 12:19 12:19 12:19 WBC 4.3 L (4.8-10.8) X10*3/uL RBC 3.30 L (4.60-5.80) X10*6/uL Hgb 9.4 L (14.0-18.0) g/dl Hct 28.3 L (42.0-52.0) % Plt Count (160-400) X10*3/uL Lymph # (Auto) 1.1 L (1.2-4.9) X10*3/uL PT (9.9-13.0) SEC INR (0.9-1.1) Chloride 110 H (96-108) mmol/L Carbon Dioxide 30 H (22-29) mmol/L Anion Gap 6 L (12-20) BUN 30 H (9-16) mg/dL Calcium (8.4-10.2) mg/dL ALT 54 H (0-40) U/L Total Protein 5.2 L (6.5-8.0) g/dL Crossmatch See Detail 11/23/21 11/23/21 11/23/21 Range/Units 12:22 13:41 22:18 WBC (4.8-10.8) X10*3/uL RBC (4.60-5.80) X10*6/uL Hgb 9.0 L 7.7 L (14.0-18.0) g/dl Hct 27.1 L 22.8 L (42.0-52.0) % Plt Count (160-400) X10*3/uL Lymph # (Auto) (1.2-4.9) X10*3/uL PT 14.4 H (9.9-13.0) SEC INR 1.3 H (0.9-1.1) Chloride (96-108) mmol/L Carbon Dioxide (22-29) mmol/L Anion Gap (12-20) BUN (9-16) mg/dL Calcium (8.4-10.2) mg/dL ALT (0-40) U/L Total Protein (6.5-8.0) g/dL Crossmatch 11/24/21 11/24/21 Range/Units 06:28 06:28 WBC (4.8-10.8) X10*3/uL RBC 2.56 L D (4.60-5.80) X10*6/uL Hgb 7.4 L (14.0-18.0) g/dl Hct 22.1 L (42.0-52.0) % Plt Count 153 L (160-400) X10*3/uL Lymph # (Auto) (1.2-4.9) X10*3/uL PT (9.9-13.0) SEC INR (0.9-1.1) Chloride 110 H (96-108) mmol/L Carbon Dioxide (22-29) mmol/L Anion Gap 10 L (12-20) BUN 29 H (9-16) mg/dL Calcium 8.1 L D (8.4-10.2) mg/dL ALT (0-40) U/L Total Protein (6.5-8.0) g/dL Crossmatch Short CBC 11/23/21 11/23/21 11/23/21 Range/Units 12:19 13:41 22:18 WBC 4.3 L (4.8-10.8) X10*3/uL Hgb 9.4 L 9.0 L 7.7 L (14.0-18.0) g/dl Hct 28.3 L 27.1 L 22.8 L (42.0-52.0) % Plt Count 169 (160-400) X10*3/uL 11/24/21 Range/Units 06:28 WBC 5.3 (4.8-10.8) X10*3/uL Hgb 7.4 L (14.0-18.0) g/dl Hct 22.1 L (42.0-52.0) % Plt Count 153 L (160-400) X10*3/uL BMP 11/23/21 11/24/21 12:19 06:28 Sodium 142 140 Potassium 4.1 3.9 Chloride 110 H 110 H Carbon Dioxide 30 H 26 BUN 30 H 29 H Creatinine 0.65 0.60 Calcium 8.9 8.1 L D Liver Function 11/23/21 Range/Units 12:19 Total Bilirubin 0.8 (0.0-1.0) mg/dL Direct Bilirubin 0.4 (0.0-0.5) mg/dL AST 34 (5-37) U/L ALT 54 H (0-40) U/L Alkaline Phosphatase 50 (39-117) U/L Albumin 3.5 (3.5-5.0) g/dL All other labs normal. Imaging Abdomen CT scan report/results: image reviewed Assessment and Plan (1) GI bleed: Status: Acute 61 you man s/p revision from LSG to RNYGBP 8 months ago presents to ED with GI bleed, daily ASA, tobacco smoker, ETOH use and no gastric acid prophylaxis. Per EGD by Dr Peguero today patient has large anastomotic ulcer which was cauterized for hemostasis. 1. Remain NPO 2. IV protonix gtt 3. Carafate liquid po qid 4. Replace platelets aggressively due to previous dialy ASA s/p GBP. 5. No NSAIDS 6. Avoid any medications by mouth and give IV instead. 7. Daily thiamine, folate and IV MVI. Case discussed with Dr Buchanan, bariatric surgeon. Will follow with you. (2) S/P gastric bypass: Status: Acute (3) Intestinal malabsorption following gastrectomy: Status: Acute Procedures Date of Service Date of Service: 11/24/21
--- NOTE | 2021-11-24 10:56 | HO.ANESPROP2 ---
[facility] Active Problems Active Problems: All Active Problems (Updated 11/23/21 @ 15:17 by Tahira Singh MD) BMI 45.0-49.9, adult (Acute) Morbid obesity due to excess calories (Acute) Depression, major, in remission (Acute) Preoperative examination (Acute) Shortness of breath (Acute) Obesity with body mass index (BMI) of 30.0 to 39.9 (Acute) Overweight (BMI 25.0-29.9) (Acute) Blood in stool (Acute) Acute GI bleeding (Acute) S/P gastric bypass (Acute) History of repair of hiatal hernia (Acute) Hiatal hernia (Acute) Depression (Acute) Preoperative testing (Acute) Intestinal malabsorption following gastrectomy (Acute) History of sleeve gastrectomy (Acute) Past Medical History Medical History Acid reflux Arthritis Depression Gout Heart murmur Hiatal hernia History of concussion HTN (hypertension) Intestinal malabsorption following gastrectomy Migraines Pre-diabetes Preoperative testing Right rotator cuff tear Sleep apnea Family History Family History Father CHF (congestive heart failure) Mother Breast cancer Brother No problems noted. Brother No problems noted. Sister No problems noted. Sister No problems noted. Son No problems noted. Daughter Mast cell disorder Chriss-Danlos syndrome Chiari malformation Surgical History Surgical History H/O nasal septoplasty History of ankle surgery History of gastric bypass History of repair of hiatal hernia History of sleeve gastrectomy History of tonsillectomy History of total adrenalectomy Hx of colonoscopy Hx of esophagogastroduodenoscopy S/P gastric bypass Status post left foot surgery History of Problems with Anesthesia: No Social History Social History Are you a primary health care administrator to a significant other at home: No Do you presently have visiting nurse or other home services: No Alcohol intake: current Alcohol intake frequency: holidays/special occasions only Patient Tobacco Use Status: Current someday Tobacco user Tobacco use type: Cigar Use of substances other than those prescribed or required for medical reasons: No Substance Use Type: Marijuana Are you DNR?: No Advance Directives: No Advance Directives Information Provided: Yes service: No Meds Allergies Allergy/AdvReac Type Severity Reaction Status Date / Time No Known Allergies Allergy Verified 11/24/21 10:22 Active Medications: Current Medications Albuterol Sulfate (Albuterol Sulfate 90 Mcg 8 Gm Inhaler) 2 puff INHALE Q46H PRN PRN Reason: Wheezing Allopurinol (Allopurinol 300 Mg Tablet) 300 mg PO DAILY [facility] Ascorbic Acid (Ascorbic Acid 500 Mg Tablet) 500 mg PO DAILY [facility] Atorvastatin Calcium (Atorvastatin Calcium 40 Mg Tablet) 40 mg PO DAILY [facility] Buspirone HCl (Buspirone Hcl 10 Mg Tablet) 10 mg PO BID PRN PRN Reason: Anxiety Buspirone HCl (Buspirone Hcl 10 Mg Tablet) 10 mg PO DAILY [facility] Calcium Carbonate (Calcium Carbonate 500 Mg Tablet) 1,000 mg PO DAILY [facility] Colchicine (Colchicine 0.6 Mg Tablet) 0.6 mg PO DAILY PRN PRN Reason: gout Diphenhydramine HCl (Diphenhydramine Hcl 25 Mg Tablet) 50 mg PO BEDTIME [facility] Last Admin: 11/23/21 19:58 Dose: 50 mg Documented by: Sodium Chloride (Ns) 1,000 mls @ 80 mls/hr IVCONT .[id number] [facility] Last Admin: 11/24/21 03:22 Dose: 80 mls/hr Documented by: Sodium Chloride (Ns) 1,000 mls @ 100 mls/hr IVCONT .Q10H [facility] Sodium Chloride (Ns) 1,000 mls @ 500 mls/hr IVCONT .Q2H [facility] Stop: 11/24/21 10:59 Pantoprazole Sodium 80 mg/ (Sodium Chloride) 100 mls @ 10 mls/hr IV .Q10H [facility] Ondansetron HCl (Ondansetron Hcl 4 Mg/2 Ml Vial) 4 mg IVPUSH Q6H PRN PRN Reason: nausea Pharmacy Consult (Consult Rx Perform Med Rec) 1 each MISCELLANE ONCE PRN PRN Reason: Consult order Sodium Chloride (0.9 % Sodium Chloride Flush 3 Ml Syringe) 3 ml IVFLUSH QSHIFT [facility] Last Admin: 11/24/21 07:24 Dose: Not Given Documented by: Tamsulosin HCl (Tamsulosin Hcl 0.4 Mg Capsule) 0.4 mg PO DAILY [facility] Trazodone HCl (Trazodone Hcl 100 Mg Tablet) 200 mg PO BEDTIME PRN PRN Reason: Sleep Last Admin: 11/23/21 23:24 Dose: 200 mg Documented by: Vitamin D (Cholecalciferol (Vitamin D3) 25 Mcg Tablet) 25 mcg PO DAILY [facility] Home Medications Medication Instructions Recorded Confirmed Last Taken Type albuterol sulfate 90 mcg/actuation 2 puff INHALATION Q4-6H PRN 08/28/20 11/23/21 Unknown History aerosol inhaler (ProAir HFA) ascorbate calcium (vitamin C) 500 500 mg PO DAILY 08/28/20 11/23/21 Unknown History mg tablet colchicine 0.6 mg tablet 0.6 mg PO DAILY PRN tab 08/28/20 11/23/21 Unknown History iron,carbonyl 30 mg-folic acid 800 1 tab PO DAILY 08/28/20 11/23/21 Unknown History [id number] chewable tablet (Opurity Multivitamin) valsartan 160 mg tablet 160 mg PO DAILY 08/28/20 11/23/21 Unknown History trazodone 50 mg tablet 200 mg PO BEDTIME PRN tab 04/01/21 11/23/21 Unknown History calcium citrate 1,000 mg tablet 1,000 mg PO DAILY 04/30/21 11/23/21 Unknown History diphenhydramine HCl 25 mg capsule 50 mg PO BEDTIME cap 04/30/21 11/23/21 Unknown History (Benadryl) allopurinol 300 mg tablet 300 mg PO DAILY 11/23/21 11/23/21 Unknown History aspirin 81 mg chewable tablet 81 mg PO DAILY 11/23/21 11/23/21 11/23/21 History atorvastatin 40 mg tablet 1 tab PO DAILY 11/23/21 11/23/21 Unknown History buspirone 10 mg tablet 1 tab PO BID PRN 11/23/21 11/23/21 Unknown History buspirone 10 mg tablet 1 tab PO DAILY 11/23/21 11/23/21 Unknown History cholecalciferol (vitamin D3) 25 25 mcg PO DAILY 11/23/21 11/23/21 Unknown History mcg (1,000 unit) tablet tamsulosin 0.4 mg capsule 1 cap PO DAILY 11/23/21 11/23/21 Unknown History Exam Exam Date and Time: November 24, 2021 1056 Height,Weight and Vital Signs: Height 5 ft 7 in Weight 87.8 kg Last Vital Signs Temp 98.5 F 11/24/21 10:23 Pulse 55 11/24/21 10:23 Resp 16 11/24/21 10:23 BP 104/37 L 11/24/21 10:23 Pulse Ox 98 11/24/21 10:23 Pertinent Lab Results Pertinent Lab Results: Laboratory Tests 11/23/21 11/23/21 11/23/21 12:19 12:19 12:19 WBC 4.3 L RBC 3.30 L Hgb 9.4 L Hct 28.3 L MCV 85.8 MCH 28.5 MCHC 33.2 RDW 14.5 Plt Count 169 MPV 10.1 Immature Gran % (Auto) 0.2 Neut % (Auto) 64.2 Lymph % (Auto) 26.3 [place] % (Auto) 7.0 Eos % (Auto) 2.1 Baso % (Auto) 0.2 Lymph # (Auto) 1.1 L [place] # (Auto) 0.3 Eos # (Auto) 0.1 Baso # (Auto) 0.0 Abs Immat Gran (auto) 0.01 Absolute Neuts (auto) 2.7 Absolute Nucleated RBC 0.000 Nucleated RBC % (auto) 0.0 PT INR Sodium 142 Potassium 4.1 Chloride 110 H Carbon Dioxide 30 H Anion Gap 6 L BUN 30 H Creatinine 0.65 Estim Creat Clear Calc 118.3 Estimated GFR > 60 Random Glucose 92 Calcium 8.9 Total Bilirubin 0.8 Direct Bilirubin 0.4 AST 34 ALT 54 H Alkaline Phosphatase 50 Troponin I High Sens 22.6 Total Protein 5.2 L Albumin 3.5 Lipase 54 Stool Occult Blood COVID-19 (LINDA) COVID-19 Clin Com Blood Type Antibody Screen Crossmatch 11/23/21 11/23/21 11/23/21 12:19 12:22 13:32 WBC RBC Hgb Hct MCV MCH MCHC RDW Plt Count MPV Immature Gran % (Auto) Neut % (Auto) Lymph % (Auto) [place] % (Auto) Eos % (Auto) Baso % (Auto) Lymph # (Auto) [place] # (Auto) Eos # (Auto) Baso # (Auto) Abs Immat Gran (auto) Absolute Neuts (auto) Absolute Nucleated RBC Nucleated RBC % (auto) PT 14.4 H INR 1.3 H Sodium Potassium Chloride Carbon Dioxide Anion Gap BUN Creatinine Estim Creat Clear Calc Estimated GFR Random Glucose Calcium Total Bilirubin Direct Bilirubin AST ALT Alkaline Phosphatase Troponin I High Sens Total Protein Albumin Lipase Stool Occult Blood POSITIVE COVID-19 (LINDA) [email or web address] Blood Type A Positive Antibody Screen NEGATIVE Crossmatch See Detail 11/23/21 11/23/21 11/23/21 13:41 15:36 22:18 WBC RBC Hgb 9.0 L 7.7 L Hct 27.1 L 22.8 L MCV MCH MCHC RDW Plt Count MPV Immature Gran % (Auto) Neut % (Auto) Lymph % (Auto) [place] % (Auto) Eos % (Auto) Baso % (Auto) Lymph # (Auto) [place] # (Auto) Eos # (Auto) Baso # (Auto) Abs Immat Gran (auto) Absolute Neuts (auto) Absolute Nucleated RBC Nucleated RBC % (auto) PT INR Sodium Potassium Chloride Carbon Dioxide Anion Gap BUN Creatinine Estim Creat Clear Calc Estimated GFR Random Glucose Calcium Total Bilirubin Direct Bilirubin AST ALT Alkaline Phosphatase Troponin I High Sens Total Protein Albumin Lipase Stool Occult Blood COVID-19 (LINDA) Negative [email or web address] See Note Blood Type Antibody Screen Crossmatch 11/24/21 11/24/21 06:28 06:28 WBC 5.3 RBC 2.56 L D Hgb 7.4 L Hct 22.1 L MCV 86.3 MCH 28.9 MCHC 33.5 RDW 14.6 Plt Count 153 L MPV 10.6 Immature Gran % (Auto) Neut % (Auto) Lymph % (Auto) [place] % (Auto) Eos % (Auto) Baso % (Auto) Lymph # (Auto) [place] # (Auto) Eos # (Auto) Baso # (Auto) Abs Immat Gran (auto) Absolute Neuts (auto) Absolute Nucleated RBC 0.000 Nucleated RBC % (auto) 0.0 PT INR Sodium 140 Potassium 3.9 Chloride 110 H Carbon Dioxide 26 Anion Gap 10 L BUN 29 H Creatinine 0.60 Estim Creat Clear Calc 133.2 Estimated GFR > 60 Random Glucose 85 Calcium 8.1 L D Total Bilirubin Direct Bilirubin AST ALT Alkaline Phosphatase Troponin I High Sens Total Protein Albumin Lipase Stool Occult Blood COVID-19 (LINDA) [employer] Com Blood Type Antibody Screen Crossmatch Airway Mallampati Class: III TM Dist: >3cm Neck ROM: Full Loose/Missing/Broken Teeth: No Heart: RRR Lungs: CTA Assessment and Plan Assessment Anesthesia Assessment: Anesthesia Plan Discussed and Chart Reviewed Final Anesthetic Review History of Problems with Anesthesia: No NPO: Yes ASA Class: III Final Preanesthetic Review: Meds/Allgs Chart Reviewed, Consent Obtained/Reviewed and Anes Risks/Benef Reviewed Patient Risk: Intermediate Procedure Risk: Intermediate Anesthetic Plan Anesthetic Plan: MAC: Disposition: Standard PACU
--- NOTE | 2021-11-24 13:34 | PM.EVENT ---
Event Note Date of Service: 11/24/21 Event Note: GI-EGD-Full note dictated Findings: 1. Nearly circumferential large anastomotic ulcer with retained sutures, and with a probable vessel on distal margin and in the base of the ulcer--no active bleeding. 2. Entire ulcer treated with 1:10,000 Epi circumferentially and in base of ulcer with good blanching of mucosa. 3. Vessel on distal margin clipped x 2 with good deployment and hemostasis 4. Vessel in base treated with Gold probe with good hemostasis 5. Entire ulcer then treated with Hemospray. Plan: IV PPI constant infusion, sucralfate suspension, NPO, Serial Hgb, and continued close surgical follow up given high risk of rebleed. If he rebleeds options would include surgery or Therapeutic Angiography by IR. Called but was only able to leave a message on her VM. Thanks.
--- NOTE | 2021-11-24 13:44 | PM.OP ---
Brief Operative Note Date of Service: 11/24/21 Pre-op diagnosis: UGI Bleed Post-op diagnosis: other (Large anastomotic ulcer) Procedure: EGD with Sclerotherapy with Epi 1:10,000, Resolution clips x 2, Gold probe cautery, and Hemospray Surgeon: Buddy Peguero Anesthesia: GETA Was an Regional [employer] Pilot used for this Procedure?: No Estimated blood loss (mL): 2.0 Pathology: none sent Condition: stable Disposition: PACU
[2021-11-24] MEDS: Pantoprazole Sodium 40 MG/10 ML VIAL 80 MG IVPUSH (14:04)
[2021-11-24] MEDS: 0.9 % Sodium Chloride 1,000 ML 100 ML IVCONT (14:15)
[2021-11-24] MEDS: Pantoprazole Sodium 80 MG in 0.9 % Sodium Chloride 80 ML 10 MG IV ×2 (14:28→22:13)
--- NOTE | 2021-11-24 15:58 | MHC.CM.PN ---
per rounds no dc date at this time
--- NOTE | 2021-11-24 16:07 | P.CONCC_ITS ---
History of Present Illness Data of Consult Service Date: 11/24/21 Requesting physician: Kenny Markham Primary Care Provider: Chay Acevedo MD HPI Reason for consult: Hypotension 61-year-old currently moderately obese male who was morbidly obese and underwent a Piedad-en-Y gastric bypass procedure and presents now with melanotic stool and clear-cut orthostatic hypotension and despite 2 units of blood overnight hemoglobin still dropped from 9 from 9-7 and is about to undergo upper endoscopy and receiving 1 I have 2 remaining units of blood as we speak No other significant past or current medical history and he is awake and alert and and appropriate and neurologically intact and clearly in no acute distress Review of Systems Review of Systems: No nausea no vomiting no upper abdominal pain and no hematemesis PMFSH Past Medical History Medical History Acid reflux Arthritis Depression Gout Heart murmur Hiatal hernia History of concussion HTN (hypertension) Intestinal malabsorption following gastrectomy Migraines Pre-diabetes Preoperative testing Right rotator cuff tear Sleep apnea Family History Family History Father CHF (congestive heart failure) Mother Breast cancer Brother No problems noted. Brother No problems noted. Sister No problems noted. Sister No problems noted. Son No problems noted. Daughter Mast cell disorder Chriss-Danlos syndrome Chiari malformation Surgical History Surgical History H/O nasal septoplasty History of ankle surgery History of gastric bypass History of repair of hiatal hernia History of sleeve gastrectomy History of tonsillectomy History of total adrenalectomy Hx of colonoscopy Hx of esophagogastroduodenoscopy S/P gastric bypass Status post left foot surgery Social History Social History Are you a primary care professional to a significant other at home: No Do you presently have visiting nurse or other home services: No Alcohol intake: current Alcohol intake frequency: holidays/special occasions only Patient Tobacco Use Status: Current someday Tobacco user Tobacco use type: Cigar Use of substances other than those prescribed or required for medical reasons: No Substance Use Type: Marijuana Are you DNR?: No Advance Directives: No Advance Directives Information Provided: Yes service: No Meds Allergies Allergy/AdvReac Type Severity Reaction Status Date / Time No Known Allergies Allergy Verified 11/24/21 10:22 Active Medications: Current Medications Albuterol Sulfate (Albuterol Sulfate 90 Mcg 8 Gm Inhaler) 2 puff INHALE Q46H PRN PRN Reason: Wheezing Allopurinol (Allopurinol 300 Mg Tablet) 300 mg PO DAILY [facility] Last Admin: 11/24/21 11:53 Dose: Not Given Documented by: Atorvastatin Calcium (Atorvastatin Calcium 40 Mg Tablet) 40 mg PO DAILY [facility] Last Admin: 11/24/21 11:53 Dose: Not Given Documented by: Buspirone HCl (Buspirone Hcl 10 Mg Tablet) 10 mg PO BID PRN PRN Reason: Anxiety Buspirone HCl (Buspirone Hcl 10 Mg Tablet) 10 mg PO DAILY [facility] Last Admin: 11/24/21 11:53 Dose: Not Given Documented by: Calcium Carbonate (Calcium Carbonate 500 Mg Tablet) 1,000 mg PO DAILY [facility] Last Admin: 11/24/21 11:53 Dose: Not Given Documented by: Colchicine (Colchicine 0.6 Mg Tablet) 0.6 mg PO DAILY PRN PRN Reason: gout Diphenhydramine HCl (Diphenhydramine Hcl 25 Mg Tablet) 50 mg PO BEDTIME [facility] Last Admin: 11/23/21 19:58 Dose: 50 mg Documented by: Sodium Chloride (Ns) 1,000 mls @ 80 mls/hr IVCONT .[id number] [facility] Last Admin: 11/24/21 03:22 Dose: 80 mls/hr Documented by: Sodium Chloride (Ns) 1,000 mls @ 100 mls/hr IVCONT .Q10H [facility] Last Admin: 11/24/21 14:15 Dose: 100 mls/hr Documented by: Pantoprazole Sodium 80 mg/ (Sodium Chloride) 100 mls @ 10 mls/hr IV .Q10H [facility] Last Admin: 11/24/21 14:28 Dose: 8 mg/hr, 10 mls/hr Documented by: Ondansetron HCl (Ondansetron Hcl 4 Mg/2 Ml Vial) 4 mg IVPUSH Q6H PRN PRN Reason: nausea Pharmacy Consult (Consult Rx Perform Med Rec) 1 each MISCELLANE ONCE PRN PRN Reason: Consult order Sodium Chloride (0.9 % Sodium Chloride Flush 3 Ml Syringe) 3 ml IVFLUSH QSHIFT [facility] Last Admin: 11/24/21 07:24 Dose: Not Given Documented by: Sucralfate (Sucralfate Oral Suspension 1 Gm/10 Ml Oral.Susp) 1 gm PO QIDACHS [facility] Tamsulosin HCl (Tamsulosin Hcl 0.4 Mg Capsule) 0.4 mg PO DAILY [facility] Last Admin: 11/24/21 11:53 Dose: Not Given Documented by: Trazodone HCl (Trazodone Hcl 100 Mg Tablet) 200 mg PO BEDTIME PRN PRN Reason: Sleep Last Admin: 11/23/21 23:24 Dose: 200 mg Documented by: Vitamin D (Cholecalciferol (Vitamin D3) 25 Mcg Tablet) 25 mcg PO DAILY [facility] Last Admin: 11/24/21 11:53 Dose: Not Given Documented by: Home Medications Medication Instructions Recorded Confirmed Last Taken Type albuterol sulfate 90 mcg/actuation 2 puff INHALATION Q4-6H PRN 08/28/20 11/23/21 Unknown History aerosol inhaler (ProAir HFA) ascorbate calcium (vitamin C) 500 500 mg PO DAILY 08/28/20 11/23/21 Unknown History mg tablet colchicine 0.6 mg tablet 0.6 mg PO DAILY PRN tab 08/28/20 11/23/21 Unknown History iron,carbonyl 30 mg-folic acid 800 1 tab PO DAILY 08/28/20 11/23/21 Unknown History cml-kyeratod-ifbc chewable tablet (Opurity Multivitamin) valsartan 160 mg tablet 160 mg PO DAILY 08/28/20 11/23/21 Unknown History trazodone 50 mg tablet 200 mg PO BEDTIME PRN tab 04/01/21 11/23/21 Unknown History calcium citrate 1,000 mg tablet 1,000 mg PO DAILY 04/30/21 11/23/21 Unknown History diphenhydramine HCl 25 mg capsule 50 mg PO BEDTIME cap 04/30/21 11/23/21 Unknown History (Benadryl) allopurinol 300 mg tablet 300 mg PO DAILY 11/23/21 11/23/21 Unknown History aspirin 81 mg chewable tablet 81 mg PO DAILY 11/23/21 11/23/21 11/23/21 History atorvastatin 40 mg tablet 1 tab PO DAILY 11/23/21 11/23/21 Unknown History buspirone 10 mg tablet 1 tab PO BID PRN 11/23/21 11/23/21 Unknown History buspirone 10 mg tablet 1 tab PO DAILY 11/23/21 11/23/21 Unknown History cholecalciferol (vitamin D3) 25 25 mcg PO DAILY 11/23/21 11/23/21 Unknown History mcg (1,000 unit) tablet tamsulosin 0.4 mg capsule 1 cap PO DAILY 11/23/21 11/23/21 Unknown History Physical Exam Vital Signs: Vital Signs: Last Vital Signs Temp 99.1 F 11/24/21 15:05 Pulse 69 11/24/21 15:05 Resp 16 11/24/21 15:05 BP 146/70 H 11/24/21 15:05 Pulse Ox 97 11/24/21 15:05 BMI result Body Mass Index 30.3 Supine and he is normotensive and he is not tox tachycardic but but has been orthostatic Cognitive function and neurologically intact Abdomen is soft nontender with no organomegaly Chest is clear bilaterally with no adventitious sounds I did bedside echo showing normal LV and RV function with greater than 60% ejection fraction and no regional wall motion abnormalities normal biatrial dimension and no primary valve or pericardial disease . Skin intact no peripheral edema no acrocyanosis Results Labs CBC & Chem 7: 11/24/21 06:28 11/24/21 06:28 Labs: Short CBC 11/23/21 11/24/21 Range/Units 22:18 06:28 WBC 5.3 (4.8-10.8) X10*3/uL Hgb 7.7 L 7.4 L (14.0-18.0) g/dl Hct 22.8 L 22.1 L (42.0-52.0) % Plt Count 153 L (160-400) X10*3/uL BMP 11/24/21 06:28 Sodium 140 Potassium 3.9 Chloride 110 H Carbon Dioxide 26 BUN 29 H Creatinine 0.60 Calcium 8.1 L D Assessment and Plan (1) GI bleed: Status: Acute (2) BMI 45.0-49.9, adult: Status: Acute (3) Morbid obesity due to excess calories: Status: Acute (4) Depression, major, in remission: Status: Acute (5) Blood in stool: Status: Acute (6) Acute GI bleeding: Status: Acute (7) S/P gastric bypass: Status: Acute (8) History of repair of hiatal hernia: Status: Acute (9) Hiatal hernia: Status: Acute Plan Clearly this is just a simple hypovolemia in need of source control and hopefully GI will be able to accomplish that through endoscopy and I did subsequently note the findings in and apparently there was an anastomotic ulcer which is very common and he needs aggressive antacid therapy possibly even Carafate and in addition and D to maintain his hemoglobin certainly not aggressively but at least for safety greater than or equal to 8 g% and if need be he can receive IV fluids, namely, normal saline with impunity given his normal cardiovascular status Anastomotic ulceration is a common complication
[2021-11-24] MEDS: Sucralfate Oral Suspension 1 GM/10 ML ORAL.SUSP PO ×2 (16:58→21:58)
[2021-11-24 19:49] LABS: Basophils Percent Auto 0.1 % (0-2); Hematocrit 27.4 % (42.0-52.0); Hemoglobin 9.3 g/dl (14.0-18.0); Imm Gran Abs Auto 0.03 X10*3/uL (0.00-0.03); Imm Gran Pct Auto 0.3 % (0.0-0.4); Lymphocytes Absolute Auto 0.4 X10*3/uL (1.2-4.9); Lymphocytes Percent Auto 4.3 % (20-40); MANUAL DIFF FLAG SCAN; Mean Corpuscular HGB Conc 33.9 g/dl (31.0-36.0); Mean Corpuscular Hemoglobin 29.2 pg (27.0-33.0); Mean Corpuscular Volume 85.9 fL (80.0-98.0); Mean Platelet Volume 9.9 fL (9.4-12.4); Monocytes Absolute Auto 0.2 X10*3/uL (0.1-1.2); Monocytes Percent Auto 1.7 % (2-11); Neutrophils Absolute Auto 9.5 x10*3/uL (2.0-8.3); Neutrophils Percent Auto 93.6 % (45-73); Platelet Count 177 X10*3/uL (160-400); Red Blood Count 3.19 X10*6/uL (4.60-5.80); Red Cell Distribution Width 14.5 % (11.0-16.0); SCAN SMEAR FLAG 1; White Blood Count 10.1 X10*3/uL (4.8-10.8)
[2021-11-24 20:09] LABS: SLIDE REVIEW VERIFIED
[2021-11-24 23:15] LABS: Hematocrit 26.3 % (42.0-52.0)
--- NOTE | 2021-11-24 23:55 | PC.NURSE ---
H+H 9.0/26.3.REPORTED TO DR MIRANDA. STATES STABLE AND WILL REPEAT LABS IN AM.PT COMF.NO S/S BLEEDING.
[2021-11-25] VITALS (20 sets, daily range): BP systolic 117–143; BP diastolic 55–89; PULSE 46–57; RESP 17–18; TEMP 36.3–37.3; O2SAT 96–100
[2021-11-25] MEDS: 0.9 % Sodium Chloride Flush 3 ML SYRINGE IVFLUSH ×3 (00:17→16:43)
[2021-11-25] MEDS: 0.9 % Sodium Chloride 1,000 ML 100 ML IVCONT (02:49)
--- NOTE | 2021-11-25 04:36 | OP_ITS ---
SURGEON: Buddy Peguero MD INDICATIONS: The patient presents for evaluation of upper GI bleeding. Full consent has been obtained from him for this, including risks of bleeding and perforation. PREOPERATIVE DIAGNOSIS: POSTOPERATIVE DIAGNOSIS: PROCEDURE PERFORMED: Esophagogastroduodenoscopy with sclerotherapy with epinephrine in a dilution of 1:10,000, placement of 2 resolution clips, cauterization with the Gold Probe, and application of Hemospray. ESTIMATED BLOOD LOSS: COMPLICATIONS: ANESTHESIA: General anesthesia via endotracheal intubation. ASSISTANTS: SPECIMENS: PREOPERATIVE DIAGNOSES: Upper gastrointestinal bleeding. POSTOPERATIVE DIAGNOSES: Upper gastrointestinal bleeding, large anastomotic ulcer with associated visible vessels. DESCRIPTION OF PROCEDURE: The patient was placed in the supine position. The Olympus video gastroscope was passed in the posterior oropharynx and upper esophagus under direct vision. The scope was passed slowly into the distal esophagus. The gastroesophageal junction appeared normal at 38 cm. There was no sign of any esophagitis nor Bean's mucosa. The scope entered into the stomach. There was a small gastric remnant with normal mucosa. I did not visualize any sign of blood in the gastric remnant. The scope was advanced to the anastomosis from his previous gastric bypass. This was notable for retained suture material as well as a large ulcer encompassing almost the entire circumference of the anastomosis, although with the largest portion of the ulcer being seen on the inferior portion. I was able to advance past this into a normal-appearing small bowel. The scope was withdrawn back into the gastric remnant. Of note, there was no sign of any active bleeding nor blood in the small bowel. The suture material did cause some difficulty in visualizing everything as at times it would be in the way. Given the finding of this large ulcer and what appeared to be 2 visible vessels with 1 in the base of the ulcer and 1 along the distal margin, I opted to sclerose the ulcer in a circumferential manner as well as injecting some epinephrine and spraying some epinephrine into the base of the ulcer. There was good blanching of mucosa noted. I then placed 2 resolution clips on the apparent visible vessel on the distal margin of the ulcer. These deployed well and there was good hemostasis. I used the Gold Probe to cauterize the visible vessel in the base of the ulcer with good effect and good hemostasis. I then used the Hemospray to deliver several applications to the entire ulcerated area. The area was observed after that and there was no sign of any active bleeding noted. The gastric remnant was inspected and appeared normal, without any sign of mass or ulceration. The scope was withdrawn back in the esophagus. The esophageal mucosa appeared normal. The scope was withdrawn from the patient. He tolerated the procedure well and was returned to the recovery area in stable condition. IMPRESSION: Large anastomotic ulcer with some retained sutures and visible vessels, status post treatment with epinephrine, Gold Probe cautery, resolution clips, and Hemospray. PLAN: The patient will continue to be observed closely. He did receive thus far a total of 4 units of packed red blood cells. He will be continued on the IV Protonix infusion as well as started on some sucralfate suspension. He will be kept NPO and have close monitoring of his hemoglobin. He has already been seen by Dr. Buchanan from the [facility]. If he was to have significant rebleeding the options I think would include that of surgery or therapeutic angiography by Interventional Radiology. Given the size of the ulcer seen today, I do think he is at relatively high risk of rebleeding. I did review this with the patient's on the phone by leaving her a voicemail as her phone went directly to voicemail when I called her after the procedure. MD KAUSHIK Pickett/VANESA / [phone] [email or web address]
[2021-11-25 06:45] LABS: Hemoglobin 8.8 g/dl (14.0-18.0); Mean Corpuscular HGB Conc 33.8 g/dl (31.0-36.0); Mean Corpuscular Hemoglobin 29.2 pg (27.0-33.0); Mean Corpuscular Volume 86.4 fL (80.0-98.0); Mean Platelet Volume 10.4 fL (9.4-12.4); Platelet Count 180 X10*3/uL (160-400); Red Blood Count 3.01 X10*6/uL (4.60-5.80); Red Cell Distribution Width 14.4 % (11.0-16.0); White Blood Count 7.3 X10*3/uL (4.8-10.8)
[2021-11-25 06:56] LABS: INTERNATIONAL NORM RATIO 1.3 (0.9-1.1)
[2021-11-25 07:07] LABS: Anion Gap 10 (12-20); Blood Urea Nitrogen 22 mg/dL (9-16); Calcium 8.5 mg/dL (8.4-10.2); Carbon Dioxide 25 mmol/L (22-29); Chloride 111 mmol/L (96-108); Creatinine Clr Calc Pharmacy 124.9; Estimated Glomerular Filt Rate > 60; Glucose Fasting 105 mg/dL (60-99); Potassium 4.2 mmol/L (3.3-5.1); Sodium 142 mmol/L (135-145)
[2021-11-25] MEDS: Sucralfate Oral Suspension 1 GM/10 ML ORAL.SUSP PO ×4 (08:54→20:07)
[2021-11-25] MEDS: Pantoprazole Sodium 80 MG in 0.9 % Sodium Chloride 80 ML 10 MG IV ×2 (08:54→16:43)
[2021-11-25 09:06] LABS: Hematocrit 27.3 % (42.0-52.0); Hemoglobin 9.2 g/dl (14.0-18.0); Mean Corpuscular HGB Conc 33.7 g/dl (31.0-36.0); Mean Corpuscular Hemoglobin 29.3 pg (27.0-33.0); Mean Corpuscular Volume 86.9 fL (80.0-98.0); Mean Platelet Volume 10.1 fL (9.4-12.4); Platelet Count 174 X10*3/uL (160-400); Red Blood Count 3.14 X10*6/uL (4.60-5.80); Red Cell Distribution Width 14.5 % (11.0-16.0); White Blood Count 7.6 X10*3/uL (4.8-10.8)
--- NOTE | 2021-11-25 10:35 | PM.PNGS ---
Subjective Subjective Date of Service: 11/25/21 Patient reports: no new complaints Interval history: Patient states he feels much better today. Epigastirc pain is now releived and is tender only, no further LLQ pain. He states he had 1 dark, tarry stool this am and did not see any BRB in stool sample. No further BM's or diarrhea, no nausea or emesis. States he feels very thirsty only. Physical Exam Vital Signs: Vital Signs: Last Vital Signs Temp 97.7 F 11/25/21 07:22 Pulse 51 11/25/21 08:15 Resp 18 11/25/21 07:50 BP 134/65 11/25/21 08:15 Pulse Ox 98 11/25/21 07:22 BMI result Body Mass Index 30.3 Const: General: cooperative, healthy appearing, comfortable and no acute distress GI: Inspection: Yes normal to inspection Palpation (GI): Soft to palpation, nontender and no guarding Objective Data Active Medications Albuterol Sulfate (Albuterol Sulfate 90 Mcg 8 Gm Inhaler) 2 puff INHALE Q46H PRN PRN Reason: Wheezing Allopurinol (Allopurinol 300 Mg Tablet) 300 mg PO DAILY [facility] Last Admin: 11/24/21 11:53 Dose: Not Given Documented by: QUENTIN Non-Admin Reason: Physician Held Med Atorvastatin Calcium (Atorvastatin Calcium 40 Mg Tablet) 40 mg PO DAILY [facility] Last Admin: 11/24/21 11:53 Dose: Not Given Documented by: QUENTIN Non-Admin Reason: Physician Held Med Buspirone HCl (Buspirone Hcl 10 Mg Tablet) 10 mg PO BID PRN PRN Reason: Anxiety Buspirone HCl (Buspirone Hcl 10 Mg Tablet) 10 mg PO DAILY [facility] Last Admin: 11/24/21 11:53 Dose: Not Given Documented by: QUENTIN Non-Admin Reason: Physician Held Med Calcium Carbonate (Calcium Carbonate 500 Mg Tablet) 1,000 mg PO DAILY [facility] Last Admin: 11/24/21 11:53 Dose: Not Given Documented by: QUENTIN Non-Admin Reason: Physician Held Med Colchicine (Colchicine 0.6 Mg Tablet) 0.6 mg PO DAILY PRN PRN Reason: gout Diphenhydramine HCl (Diphenhydramine Hcl 25 Mg Tablet) 50 mg PO BEDTIME [facility] Last Admin: 11/23/21 19:58 Dose: 50 mg Documented by: TOMER Sodium Chloride (Ns) 1,000 mls @ 125 mls/hr IVCONT .Q8H [facility] Last Infusion: 11/25/21 08:54 Dose: 125 mls/hr Documented by: ERICK Pantoprazole Sodium 80 mg/ (Sodium Chloride) 100 mls @ 10 mls/hr IV .Q10H [facility] Last Admin: 11/25/21 08:54 Dose: 8 mg/hr, 10 mls/hr Documented by: ERICK Ondansetron HCl (Ondansetron Hcl 4 Mg/2 Ml Vial) 4 mg IVPUSH Q6H PRN PRN Reason: nausea Pharmacy Consult (Consult Rx Perform Med Rec) 1 each MISCELLANE ONCE PRN PRN Reason: Consult order Sodium Chloride (0.9 % Sodium Chloride Flush 3 Ml Syringe) 3 ml IVFLUSH QSHIFT [facility] Last Admin: 11/25/21 08:55 Dose: 3 ml Documented by: ERICK Sucralfate (Sucralfate Oral Suspension 1 Gm/10 Ml Oral.Susp) 1 gm PO QIDACHS [facility] Last Admin: 11/25/21 08:54 Dose: 1 gm Documented by: ERICK Tamsulosin HCl (Tamsulosin Hcl 0.4 Mg Capsule) 0.4 mg PO DAILY [facility] Last Admin: 11/24/21 11:53 Dose: Not Given Documented by: QUENTIN Non-Admin Reason: Physician Held Med Trazodone HCl (Trazodone Hcl 100 Mg Tablet) 200 mg PO BEDTIME PRN PRN Reason: Sleep Last Admin: 11/23/21 23:24 Dose: 200 mg Documented by: PARAS Vitamin D (Cholecalciferol (Vitamin D3) 25 Mcg Tablet) 25 mcg PO DAILY [facility] Last Admin: 11/24/21 11:53 Dose: Not Given Documented by: QUENTIN Non-Admin Reason: Physician Held Med Labs CBC & Chem 7: 11/25/21 08:51 11/25/21 06:09 Labs: Laboratory Results - last 24 hr 11/23/21 11/24/21 11/25/21 12:19 19:39 06:09 MCV 85.9 86.4 MCH 29.2 29.2 MCHC 33.9 33.8 RDW 14.5 14.4 Plt Count 177 180 MPV 9.9 10.4 Immature Gran % (Auto) 0.3 Neut % (Auto) 93.6 H Lymph % (Auto) 4.3 L Keith % (Auto) 1.7 L Eos % (Auto) 0.0 Baso % (Auto) 0.1 Lymph # (Auto) 0.4 L Keith # (Auto) 0.2 Eos # (Auto) 0.0 Baso # (Auto) 0.0 Abs Immat Gran (auto) 0.03 Absolute Neuts (auto) 9.5 H Absolute Nucleated RBC 0.000 0.000 Nucleated RBC % (auto) 0.0 0.0 Smear Tech's Comments VERIFIED PT INR Anion Gap Estim Creat Clear Calc Estimated GFR Fasting Glucose Calcium Blood Type A Positive Antibody Screen NEGATIVE Crossmatch See Detail 11/25/21 11/25/21 11/25/21 06:09 06:09 08:51 MCV 86.9 MCH 29.3 MCHC 33.7 RDW 14.5 Plt Count 174 MPV 10.1 Immature Gran % (Auto) Neut % (Auto) Lymph % (Auto) Keith % (Auto) Eos % (Auto) Baso % (Auto) Lymph # (Auto) Keith # (Auto) Eos # (Auto) Baso # (Auto) Abs Immat Gran (auto) Absolute Neuts (auto) Absolute Nucleated RBC 0.000 Nucleated RBC % (auto) 0.0 Smear Tech's Comments PT 15.0 H INR 1.3 H Anion Gap 10 L Estim Creat Clear Calc 124.9 Estimated GFR > 60 Fasting Glucose 105 H Calcium 8.5 Blood Type Antibody Screen Crossmatch Procedures Date of Service Date of Service: 11/25/21 Progress Note: A&P Assessment and plan (1) GI bleed: Status: Acute (2) S/P gastric bypass: Status: Acute Plan 61 yo man HD #1 for GI bleed s/p RNYGBP 9 months ago. Patient may have had BRBPR this am x2, but has stable VS and appropriate rise in h/h after being transfused yesterday. Will need to be monitored closely as he is still at risk of rebleed from sclerotherapy done by Dr Peguero yesterday. Patient needs Protonix 40 mg bid (may start when h/h stable) carafate liquid qid, consider increasing IVF due to subjective complains of thirst. He will also need protein supplementation for better healing of ulcer bed. In our bariatric experience, high daily protein of about 100 grams per day increases healing significantly. Therefore we recommend starting him on liquid protein shakes to toal 130 grams of protein per day - equivalent of 4 - 30 gram protein shakes per day. [place] [facility] [place], patient must drink no faster than 1 oz every 15 minutes. Plan discussed with Dr Buchanan. Fall Risk Details Current Medications: Current Medications Albuterol Sulfate (Albuterol Sulfate 90 Mcg 8 Gm Inhaler) 2 puff INHALE Q46H PRN PRN Reason: Wheezing Allopurinol (Allopurinol 300 Mg Tablet) 300 mg PO DAILY [facility] Last Admin: 11/24/21 11:53 Dose: Not Given Documented by: Atorvastatin Calcium (Atorvastatin Calcium 40 Mg Tablet) 40 mg PO DAILY [facility] Last Admin: 11/24/21 11:53 Dose: Not Given Documented by: Buspirone HCl (Buspirone Hcl 10 Mg Tablet) 10 mg PO BID PRN PRN Reason: Anxiety Buspirone HCl (Buspirone Hcl 10 Mg Tablet) 10 mg PO DAILY [facility] Last Admin: 11/24/21 11:53 Dose: Not Given Documented by: Calcium Carbonate (Calcium Carbonate 500 Mg Tablet) 1,000 mg PO DAILY [facility] Last Admin: 11/24/21 11:53 Dose: Not Given Documented by: Colchicine (Colchicine 0.6 Mg Tablet) 0.6 mg PO DAILY PRN PRN Reason: gout Diphenhydramine HCl (Diphenhydramine Hcl 25 Mg Tablet) 50 mg PO BEDTIME [facility] Last Admin: 11/23/21 19:58 Dose: 50 mg Documented by: Sodium Chloride (Ns) 1,000 mls @ 125 mls/hr IVCONT .Q8H [facility] Last Infusion: 11/25/21 08:54 Dose: 125 mls/hr Documented by: Pantoprazole Sodium 80 mg/ (Sodium Chloride) 100 mls @ 10 mls/hr IV .Q10H [facility] Last Admin: 11/25/21 08:54 Dose: 8 mg/hr, 10 mls/hr Documented by: Ondansetron HCl (Ondansetron Hcl 4 Mg/2 Ml Vial) 4 mg IVPUSH Q6H PRN PRN Reason: nausea Pharmacy Consult (Consult Rx Perform Med Rec) 1 each MISCELLANE ONCE PRN PRN Reason: Consult order Sodium Chloride (0.9 % Sodium Chloride Flush 3 Ml Syringe) 3 ml IVFLUSH QSHIFT [facility] Last Admin: 11/25/21 08:55 Dose: 3 ml Documented by: Sucralfate (Sucralfate Oral Suspension 1 Gm/10 Ml Oral.Susp) 1 gm PO QIDACHS [facility] Last Admin: 11/25/21 08:54 Dose: 1 gm Documented by: Tamsulosin HCl (Tamsulosin Hcl 0.4 Mg Capsule) 0.4 mg PO DAILY [facility] Last Admin: 11/24/21 11:53 Dose: Not Given Documented by: Trazodone HCl (Trazodone Hcl 100 Mg Tablet) 200 mg PO BEDTIME PRN PRN Reason: Sleep Last Admin: 11/23/21 23:24 Dose: 200 mg Documented by: Vitamin D (Cholecalciferol (Vitamin D3) 25 Mcg Tablet) 25 mcg PO DAILY [facility] Last Admin: 11/24/21 11:53 Dose: Not Given Documented by: Time Spent With Patient Time: Total time spent is greater than 50% in coordination of care (as documented) at patient's floor/unit and/or counseling patient: Quality Stroke Does the patient have a stroke diagnosis?: No VTE Prior VTE?: No VTE Risk Level:: Medical - moderate - high VTE Device Contraindication: N/A - Device Ordered VTE Drug Contraindication: N/A - Med Ordered
--- NOTE | 2021-11-25 10:43 | PC.NURSE ---
Addendum entered by Elizabeth Rodriguez RN 11/25/21 16:17: 1430- Patient had soft BM with bright red blood. Dr. Markham and Dr. Peguero made aware. Repeat H/H to be drawn at 1900. Continue to hold blood transfusion at this time. VSS. Dr. Marhkam in room to update patient and patient's , no concerns at this time. Original Note: 0740- Per DRY CLEANING ATTENDANT, patient had loose BM with moderate amount of bright red blood in stool. Patient also noted to be dizzy when getting up out of chair. Dr. Peguero and Dr. Markham made aware. STAT H/H and 2 units PRBC ordered. 0945- Repeat H/H 9.2/27.3. Per Dr. Markham hold off on transfusing PRBC and repeat H/H at 1400. Patient updated on plan, verbalized understanding.
[2021-11-25] MEDS: 0.9 % Sodium Chloride 1,000 ML 125 ML IVCONT ×2 (12:30→19:28)
--- NOTE | 2021-11-25 12:55 | HO.PM.IMPN ---
Subjective Subjective Date of Service: 11/25/21 Interval History: gIB Review of Systems Discussed with staff patient had small bm-black stool with some blood mixed this morning. otherwise feeling better than yesterday, denies chest pain or shortness of breath or abdominal pain or fever chills Physical Exam Vital Signs: Vital Signs: Last Vital Signs Temp 98.4 F 11/25/21 11:27 Pulse 52 11/25/21 12:31 Resp 18 11/25/21 11:27 BP 126/60 11/25/21 12:31 Pulse Ox 98 11/25/21 11:53 BMI result Body Mass Index 30.3 Appearance: Alert.? Oriented X3.? not in distress.? cvs: rrr, [id number] , no murmur res: clear to auscultation ,no rhonchii or wheezing abd: no rebound or guarding ,nt, bs present. ext :pulses present , no cyanosis . neuro: axo3 , nonfocal. Objective Data Active Medications Albuterol Sulfate (Albuterol Sulfate 90 Mcg 8 Gm Inhaler) 2 puff INHALE Q46H PRN PRN Reason: Wheezing Allopurinol (Allopurinol 300 Mg Tablet) 300 mg PO DAILY [facility] Last Admin: 11/24/21 11:53 Dose: Not Given Documented by: QUENTIN Non-Admin Reason: Physician Held Med Atorvastatin Calcium (Atorvastatin Calcium 40 Mg Tablet) 40 mg PO DAILY [facility] Last Admin: 11/24/21 11:53 Dose: Not Given Documented by: QUENTIN Non-Admin Reason: Physician Held Med Buspirone HCl (Buspirone Hcl 10 Mg Tablet) 10 mg PO BID PRN PRN Reason: Anxiety Buspirone HCl (Buspirone Hcl 10 Mg Tablet) 10 mg PO DAILY [facility] [place] Last Admin: 11/24/21 11:53 Dose: Not Given Documented by: QUENTIN Non-Admin Reason: Physician Held Med Calcium Carbonate (Calcium Carbonate 500 Mg Tablet) 1,000 mg PO DAILY [facility] [place] Last Admin: 11/24/21 11:53 Dose: Not Given Documented by: QUENTIN Non-Admin Reason: Physician Held Med Colchicine (Colchicine 0.6 Mg Tablet) 0.6 mg PO DAILY PRN PRN Reason: gout Diphenhydramine HCl (Diphenhydramine Hcl 25 Mg Tablet) 50 mg PO BEDTIME [facility] [place] Last Admin: 11/23/21 19:58 Dose: 50 mg Documented by: TOMER Sodium Chloride (Ns) 1,000 mls @ 125 mls/hr IVCONT .Q8H [facility] [place] Last Admin: 11/25/21 12:30 Dose: 125 mls/hr Documented by: ERICK Pantoprazole Sodium 80 mg/ (Sodium Chloride) 100 mls @ 10 mls/hr IV .Q10H [facility] [place] Last Admin: 11/25/21 08:54 Dose: 8 mg/hr, 10 mls/hr Documented by: ERICK Ondansetron HCl (Ondansetron Hcl 4 Mg/2 Ml Vial) 4 mg IVPUSH Q6H PRN PRN Reason: nausea Pharmacy Consult (Consult Rx Perform Med Rec) 1 each MISCELLANE ONCE PRN PRN Reason: Consult order Sodium Chloride (0.9 % Sodium Chloride Flush 3 Ml Syringe) 3 ml IVFLUSH QSHIFT [facility] Last Admin: 11/25/21 08:55 Dose: 3 ml Documented by: ERICK Sucralfate (Sucralfate Oral Suspension 1 Gm/10 Ml Oral.Susp) 1 gm PO QIDACHS [facility] [place] Last Admin: 11/25/21 12:30 Dose: 1 gm Documented by: ERICK Tamsulosin HCl (Tamsulosin Hcl 0.4 Mg Capsule) 0.4 mg PO DAILY [facility] Last Admin: 11/24/21 11:53 Dose: Not Given Documented by: QUENTIN Non-Admin Reason: Physician Held Med Trazodone HCl (Trazodone Hcl 100 Mg Tablet) 200 mg PO BEDTIME PRN PRN Reason: Sleep Last Admin: 11/23/21 23:24 Dose: 200 mg Documented by: PARAS Vitamin D (Cholecalciferol (Vitamin D3) 25 Mcg Tablet) 25 mcg PO DAILY [facility] [place] Last Admin: 11/24/21 11:53 Dose: Not Given Documented by: QUENTIN Non-Admin Reason: Physician Held Med Labs CBC & Chem 7: 11/25/21 08:51 11/25/21 06:09 Labs: Laboratory Results - last 24 hr 11/23/21 11/24/21 11/25/21 12:19 19:39 06:09 MCV 85.9 86.4 MCH 29.2 29.2 MCHC 33.9 33.8 RDW 14.5 14.4 Plt Count 177 180 MPV 9.9 10.4 Immature Gran % (Auto) 0.3 Neut % (Auto) 93.6 H Lymph % (Auto) 4.3 L Wharton % (Auto) 1.7 L Eos % (Auto) 0.0 Baso % (Auto) 0.1 Lymph # (Auto) 0.4 L Wharton # (Auto) 0.2 Eos # (Auto) 0.0 Baso # (Auto) 0.0 Abs Immat Gran (auto) 0.03 Absolute Neuts (auto) 9.5 H Absolute Nucleated RBC 0.000 0.000 Nucleated RBC % (auto) 0.0 0.0 Smear Tech's Comments VERIFIED PT INR Anion Gap Estim Creat Clear Calc Estimated GFR Fasting Glucose Calcium Blood Type A Positive Antibody Screen NEGATIVE Crossmatch See Detail 11/25/21 11/25/21 11/25/21 06:09 06:09 08:51 MCV 86.9 MCH 29.3 MCHC 33.7 RDW 14.5 Plt Count 174 MPV 10.1 Immature Gran % (Auto) Neut % (Auto) Lymph % (Auto) Wharton % (Auto) Eos % (Auto) Baso % (Auto) Lymph # (Auto) Wharton # (Auto) Eos # (Auto) Baso # (Auto) Abs Immat Gran (auto) Absolute Neuts (auto) Absolute Nucleated RBC 0.000 Nucleated RBC % (auto) 0.0 Smear Tech's Comments PT 15.0 H INR 1.3 H Anion Gap 10 L Estim Creat Clear Calc 124.9 Estimated GFR > 60 Fasting Glucose 105 H Calcium 8.5 Blood Type Antibody Screen Crossmatch Assessment and Plan (1) GI bleed: Status: Acute (2) Blood in stool: Status: Acute Plan 61-year-old male with past medical history of multiple bariatric surgeries-last bariatric surgery of revision was done in February 2021,also was taking asa unclear reason:? Came with abdominal pain and GI bleed. 1. GI bleed: ED physician discussed the case with bariatric and GI-started the patient on PPIs, also ordered PRBC and platelets-follow up with GI No new nausea vomiting or bleed says currently in the ED Hold aspirin Patient is status post EGD on 11/24/21: Nearly circumferential large anastomotic ulcer with retained sutures, and with a probable vessel on distal margin and in the base of the ulcer--no active bleeding-treated with epi with good hemostasis. Vessel treated withGold probe with good hemostasis Entire ulcer then treated with Hemospray. GI recommended: continue ?IV PPI constant infusion, sucralfate suspension, NPO, Serial Hgb, and continued close surgical follow up given high risk of rebleed. If he rebleeds options would include surgery or Therapeutic Angiography by IR.? Called but was only able to leave a message on her VM. Discussed with GI and bariatric surgery: Received 4 PRBC, 3 platelets: H&H so far stable around, had a possible small BM with black stool and mom mild blood makes this morning-but H&H is stable patient did not had any further bleeding episode, possible morning BM blood related to residual affect from yesterday bleeding. Discussed with the surgery and GI will monitor H&H in the afternoon if patient is still bleeding and H&H trending down may need IR guided intervention or transfer to acute care hospital. We will contact GI again if above occurs. 2.HTn:blood pressure controlled, hold losartan 3.Gerd: on PPI 4 :? Hx of gout: Continue home medications. 5. DVT prophylaxis:? Mechanical devices. Quality Stroke Does the patient have a stroke diagnosis?: No VTE Prior VTE?: No VTE Risk Level:: Medical - moderate - high VTE Device Contraindication: N/A - Device Ordered VTE Drug Contraindication: N/A - Med Ordered
[2021-11-25 14:31] LABS: Hematocrit 27.3 % (42.0-52.0)
--- NOTE | 2021-11-25 14:44 | HO.POSTANES ---
Post Anesthesia Evaluation Post Anesthesia Evaluation Vital Signs: Vital Signs Temp Pulse Resp BP Pulse Ox 11/25/21 12:31 52 126/60 11/25/21 12:30 52 127/61 11/25/21 12:00 48 L 125/59 L 11/25/21 11:53 98 11/25/21 11:27 98.4 F 48 L 18 129/58 L 100 11/25/21 08:15 51 134/65 11/25/21 08:14 48 L 125/89 11/25/21 08:00 51 120/59 L 11/25/21 07:50 18 11/25/21 07:22 97.7 F 50 18 118/58 L 98 11/25/21 03:20 97.4 F 51 17 140/60 H 100 Anesthesia: General Endotracheal-GETA Mental Status: Awake Pain Control: Satisfactory Nausea/Vomiting: None Hydration: Adequate Anesthesia-Related Issues: No Anes. Related Issues
--- NOTE | 2021-11-25 15:28 | PM.GIPN ---
Subjective Subjective Date of Service: 11/25/21 Interval History: still passing melena but HGb and vitals holding no abdominal pain poor appetite no nausea or vomiting lethargy Critical Care Time (minutes): 0 Physical Exam Vital Signs: Vital Signs: Last Vital Signs Temp 98.7 F 11/25/21 15:15 Pulse 49 L 11/25/21 15:17 Resp 18 11/25/21 15:15 BP 126/65 11/25/21 15:17 Pulse Ox 98 11/25/21 15:15 BMI result Body Mass Index 30.3 Const: General: cooperative Orientation/consciousness: patient oriented x3 HEENT: Head: Yes normal to inspection Resp: Effort & Inspection: normal respiratory effort and able to speak in complete sentences Cardio: Jugular venous distension: no JVD Rate: regular rate Rhythm: regular rhythm Heart sounds: S1 normal heart sound present and S2 normal heart sound present GI: Inspection: Yes normal to inspection Palpation (GI): Tenderness to palpation present (GI) in the epigastrum Percussion: Yes normal to percussion Skin: General skin exam: no rashes or lesions noted Neuro: General: patient oriented x3 Extrem: General: Yes normal to inspection Psych: Appearance: grossly normal Objective Data Labs CBC & Chem 7: 11/25/21 14:22 11/25/21 06:09 Labs: Laboratory Results - last 24 hr 11/23/21 11/24/21 11/24/21 12:19 19:39 23:10 WBC 10.1 RBC 3.19 L D Hgb 9.3 L D 9.0 L Hct 27.4 L D 26.3 L MCV 85.9 MCH 29.2 MCHC 33.9 RDW 14.5 Plt Count 177 MPV 9.9 Immature Gran % (Auto) 0.3 Neut % (Auto) 93.6 H Lymph % (Auto) 4.3 L Ward % (Auto) 1.7 L Eos % (Auto) 0.0 Baso % (Auto) 0.1 Lymph # (Auto) 0.4 L Ward # (Auto) 0.2 Eos # (Auto) 0.0 Baso # (Auto) 0.0 Abs Immat Gran (auto) 0.03 Absolute Neuts (auto) 9.5 H Absolute Nucleated RBC 0.000 Nucleated RBC % (auto) 0.0 Smear Tech's Comments VERIFIED PT INR Sodium Potassium Chloride Carbon Dioxide Anion Gap BUN Creatinine Estim Creat Clear Calc Estimated GFR Fasting Glucose Calcium Blood Type A Positive Antibody Screen NEGATIVE Crossmatch See Detail 11/25/21 11/25/21 11/25/21 06:09 06:09 06:09 WBC 7.3 RBC 3.01 L Hgb 8.8 L Hct 26.0 L MCV 86.4 MCH 29.2 MCHC 33.8 RDW 14.4 Plt Count 180 MPV 10.4 Immature Gran % (Auto) Neut % (Auto) Lymph % (Auto) Ward % (Auto) Eos % (Auto) Baso % (Auto) Lymph # (Auto) Ward # (Auto) Eos # (Auto) Baso # (Auto) Abs Immat Gran (auto) Absolute Neuts (auto) Absolute Nucleated RBC 0.000 Nucleated RBC % (auto) 0.0 Smear Tech's Comments PT 15.0 H INR 1.3 H Sodium 142 Potassium 4.2 Chloride 111 H Carbon Dioxide 25 Anion Gap 10 L BUN 22 H Creatinine 0.64 Estim Creat Clear Calc 124.9 Estimated GFR > 60 Fasting Glucose 105 H Calcium 8.5 Blood Type Antibody Screen Crossmatch 11/25/21 11/25/21 08:51 14:22 WBC 7.6 RBC 3.14 L Hgb 9.2 L 9.0 L Hct 27.3 L 27.3 L MCV 86.9 MCH 29.3 MCHC 33.7 RDW 14.5 Plt Count 174 MPV 10.1 Immature Gran % (Auto) Neut % (Auto) Lymph % (Auto) Ward % (Auto) Eos % (Auto) Baso % (Auto) Lymph # (Auto) Ward # (Auto) Eos # (Auto) Baso # (Auto) Abs Immat Gran (auto) Absolute Neuts (auto) Absolute Nucleated RBC 0.000 Nucleated RBC % (auto) 0.0 Smear Tech's Comments PT INR Sodium Potassium Chloride Carbon Dioxide Anion Gap BUN Creatinine Estim Creat Clear Calc Estimated GFR Fasting Glucose Calcium Blood Type Antibody Screen Crossmatch Procedures Date of Service Date of Service: 11/25/21 Progress Note: A&P Assessment and plan (1) Acute GI bleeding: Status: Acute Plan 1/ Acute blood loss anemia, from marginal ulceration, s/p endoscopic treatment with clips, hemospray and cautery. HGb stable PLAN: 1/ Trend HGB and if stable advance diet 2/ cont with PPI, if converting to PO open capsule and mix with apple sauce and ingest, consider adding carafate 3/ smoking cessation 4/ If further bleeding refer to [facility] for IR embolization which wll be easy as he already has he location marked by clips Fall Risk Details Current Medications: Current Medications Albuterol Sulfate (Albuterol Sulfate 90 Mcg 8 Gm Inhaler) 2 puff INHALE Q46H PRN PRN Reason: Wheezing Allopurinol (Allopurinol 300 Mg Tablet) 300 mg PO DAILY [facility] Last Admin: 11/24/21 11:53 Dose: Not Given Documented by: Atorvastatin Calcium (Atorvastatin Calcium 40 Mg Tablet) 40 mg PO DAILY [facility] Last Admin: 11/24/21 11:53 Dose: Not Given Documented by: Buspirone HCl (Buspirone Hcl 10 Mg Tablet) 10 mg PO BID PRN PRN Reason: Anxiety Buspirone HCl (Buspirone Hcl 10 Mg Tablet) 10 mg PO DAILY [facility] Last Admin: 11/24/21 11:53 Dose: Not Given Documented by: Calcium Carbonate (Calcium Carbonate 500 Mg Tablet) 1,000 mg PO DAILY [facility] Last Admin: 11/24/21 11:53 Dose: Not Given Documented by: Colchicine (Colchicine 0.6 Mg Tablet) 0.6 mg PO DAILY PRN PRN Reason: gout Diphenhydramine HCl (Diphenhydramine Hcl 25 Mg Tablet) 50 mg PO BEDTIME [facility] Last Admin: 11/23/21 19:58 Dose: 50 mg Documented by: Sodium Chloride (Ns) 1,000 mls @ 125 mls/hr IVCONT .Q8H [facility] Last Admin: 11/25/21 12:30 Dose: 125 mls/hr Documented by: Pantoprazole Sodium 80 mg/ (Sodium Chloride) 100 mls @ 10 mls/hr IV .Q10H [facility] Last Admin: 11/25/21 08:54 Dose: 8 mg/hr, 10 mls/hr Documented by: Ondansetron HCl (Ondansetron Hcl 4 Mg/2 Ml Vial) 4 mg IVPUSH Q6H PRN PRN Reason: nausea Pharmacy Consult (Consult Rx Perform Med Rec) 1 each MISCELLANE ONCE PRN PRN Reason: Consult order Sodium Chloride (0.9 % Sodium Chloride Flush 3 Ml Syringe) 3 ml IVFLUSH QSHIFT [facility] Last Admin: 11/25/21 08:55 Dose: 3 ml Documented by: Sucralfate (Sucralfate Oral Suspension 1 Gm/10 Ml Oral.Susp) 1 gm PO QIDACHS [facility] Last Admin: 11/25/21 12:30 Dose: 1 gm Documented by: Tamsulosin HCl (Tamsulosin Hcl 0.4 Mg Capsule) 0.4 mg PO DAILY [facility] Last Admin: 11/24/21 11:53 Dose: Not Given Documented by: Trazodone HCl (Trazodone Hcl 100 Mg Tablet) 200 mg PO BEDTIME PRN PRN Reason: Sleep Last Admin: 11/23/21 23:24 Dose: 200 mg Documented by: Vitamin D (Cholecalciferol (Vitamin D3) 25 Mcg Tablet) 25 mcg PO DAILY [facility] Last Admin: 11/24/21 11:53 Dose: Not Given Documented by: Time Spent With Patient Time: Total time spent is greater than 50% in coordination of care (as documented) at patient's floor/unit and/or counseling patient: Quality Stroke Does the patient have a stroke diagnosis?: No VTE Prior VTE?: No VTE Risk Level:: Medical - moderate - high VTE Device Contraindication: N/A - Device Ordered VTE Drug Contraindication: N/A - Med Ordered
[2021-11-25] MEDS: Acetaminophen 325 MG TABLET 650 MG PO (18:20)
[2021-11-25 19:26] LABS: Hematocrit 26.4 % (42.0-52.0); Hemoglobin 8.9 g/dl (14.0-18.0)
--- NOTE | 2021-11-25 22:04 | PM.EVENT ---
Event Note Date of Service: 11/25/21 Event Note: GI Followup Course noted over the past 24 hours and D/W Dr. Markham, Autumn Boykin, [employer], and nursing staff. The patient has had some evidence of rectal bleeding earlier today, but his Hgb has thus far remained very stable over the past 24 hours. His last one or 2 BM's have been primarily brown with some blood mixed in the stool. He has remained hemodynamically stable. I would continue the IV PPI infusion until Monday, 11/27, and then change management director to omeprazole 40mg po QD beginning on Monday, 11/27, and continue the Sucralfate as well, as long as things are stable. I think he can be started on liquids on Monday as per the Bariatric team as long as things are stable. Continue to follow his Hgb closely. If he rebleeds I would recommend transfer to a tertiary center for attempt at therapeutic angiography by IR before resorting to surgery. I discussed all of this with the patient's via phone call earlier this evening and she is comfortable with this plan. Thanks.
[2021-11-26] VITALS (16 sets, daily range): BP systolic 115–161; BP diastolic 61–74; PULSE 44–51; RESP 18–19; TEMP 36.5–37.1; O2SAT 97–100
[2021-11-26 02:29] LABS: Hematocrit 26.4 % (42.0-52.0); Hemoglobin 8.9 g/dl (14.0-18.0)
[2021-11-26] MEDS: Pantoprazole Sodium 80 MG in 0.9 % Sodium Chloride 80 ML 10 MG IV ×3 (02:32→22:06)
[2021-11-26] MEDS: 0.9 % Sodium Chloride 1,000 ML 125 ML IVCONT ×2 (03:31→11:26)
[2021-11-26 06:47] LABS: MANUAL DIFF FLAG NO
[2021-11-26 06:55] LABS: Basophils Percent Auto 0.2 % (0-2); Eosinophils Absolute Auto 0.1 X10*3/uL (0.0-0.4); Eosinophils Percent Auto 2.1 % (0-4); Hematocrit 28.2 % (42.0-52.0); Hemoglobin 9.2 g/dl (14.0-18.0); Imm Gran Abs Auto 0.03 X10*3/uL (0.00-0.03); Imm Gran Pct Auto 0.5 % (0.0-0.4); Lymphocytes Absolute Auto 1.3 X10*3/uL (1.2-4.9); Lymphocytes Percent Auto 19.1 % (20-40); Mean Corpuscular HGB Conc 32.6 g/dl (31.0-36.0); Mean Corpuscular Hemoglobin 28.6 pg (27.0-33.0); Mean Corpuscular Volume 87.6 fL (80.0-98.0); Mean Platelet Volume 10.2 fL (9.4-12.4); Monocytes Absolute Auto 0.4 X10*3/uL (0.1-1.2); Monocytes Percent Auto 5.3 % (2-11); Neutrophils Absolute Auto 4.8 x10*3/uL (2.0-8.3); Neutrophils Percent Auto 72.8 % (45-73); Platelet Count 178 X10*3/uL (160-400); Red Blood Count 3.22 X10*6/uL (4.60-5.80); Red Cell Distribution Width 14.6 % (11.0-16.0); White Blood Count 6.6 X10*3/uL (4.8-10.8)
[2021-11-26 07:24] LABS: Anion Gap 10 (12-20); Blood Urea Nitrogen 17 mg/dL (9-16); Calcium 8.3 mg/dL (8.4-10.2); Carbon Dioxide 25 mmol/L (22-29); Chloride 110 mmol/L (96-108); Creatinine Clr Calc Pharmacy 131.1; Estimated Glomerular Filt Rate > 60; Glucose Fasting 78 mg/dL (60-99); Potassium 3.6 mmol/L (3.3-5.1); Sodium 141 mmol/L (135-145)
--- NOTE | 2021-11-26 07:39 | P.PNIM_ITS ---
Subjective Subjective Date of Service: 11/26/21 Interval History: gib Review of Systems has 1bm last night mostly black stool but no leon bleeding. Feels better today, denies any chest pain shortness of breath or abdominal pain or dizziness. Physical Exam Vital Signs: Vital Signs: Last Vital Signs Temp 98.8 F 11/26/21 07:21 Pulse 46 L 11/26/21 07:21 Resp 18 11/26/21 07:21 BP 154/65 H 11/26/21 07:21 Pulse Ox 98 11/26/21 07:21 BMI result Body Mass Index 30.3 Appearance: Alert.? Oriented X3.? not in distress.? cvs: rrr, [id number] , no murmur res: clear to auscultation ,no rhonchii or wheezing abd: no rebound or guarding ,nt, bs present. ext :pulses present , no cyanosis . neuro: axo3 , nonfocal. Objective Data Active Medications Acetaminophen (Acetaminophen 325 Mg Tablet) 650 mg PO Q6H PRN PRN Reason: Headache Albuterol Sulfate (Albuterol Sulfate 90 Mcg 8 Gm Inhaler) 2 puff INHALE Q46H PRN PRN Reason: Wheezing Allopurinol (Allopurinol 300 Mg Tablet) 300 mg PO DAILY [facility] Last Admin: 11/24/21 11:53 Dose: Not Given Documented by: QUENTIN Non-Admin Reason: Physician Held Med Atorvastatin Calcium (Atorvastatin Calcium 40 Mg Tablet) 40 mg PO DAILY [facility] Last Admin: 11/24/21 11:53 Dose: Not Given Documented by: QUENTIN Non-Admin Reason: Physician Held Med Buspirone HCl (Buspirone Hcl 10 Mg Tablet) 10 mg PO BID PRN PRN Reason: Anxiety Buspirone HCl (Buspirone Hcl 10 Mg Tablet) 10 mg PO DAILY [facility] Last Admin: 11/24/21 11:53 Dose: Not Given Documented by: QUENTIN Non-Admin Reason: Physician Held Med Calcium Carbonate (Calcium Carbonate 500 Mg Tablet) 1,000 mg PO DAILY [facility] Last Admin: 11/24/21 11:53 Dose: Not Given Documented by: QUENTIN Non-Admin Reason: Physician Held Med Colchicine (Colchicine 0.6 Mg Tablet) 0.6 mg PO DAILY PRN PRN Reason: gout Diphenhydramine HCl (Diphenhydramine Hcl 25 Mg Tablet) 50 mg PO BEDTIME [facility] Last Admin: 11/23/21 19:58 Dose: 50 mg Documented by: TOMER Sodium Chloride (Ns) 1,000 mls @ 125 mls/hr IVCONT .Q8H [facility] Last Admin: 11/26/21 03:31 Dose: 125 mls/hr Documented by: BRUNA Pantoprazole Sodium 80 mg/ (Sodium Chloride) 100 mls @ 10 mls/hr IV .Q10H [facility] Last Admin: 11/26/21 02:32 Dose: 8 mg/hr, 10 mls/hr Documented by: BRUNA Ondansetron HCl (Ondansetron Hcl 4 Mg/2 Ml Vial) 4 mg IVPUSH Q6H PRN PRN Reason: nausea Pharmacy Consult (Consult Rx Perform Med Rec) 1 each MISCELLANE ONCE PRN PRN Reason: Consult order Sodium Chloride (0.9 % Sodium Chloride Flush 3 Ml Syringe) 3 ml IVFLUSH QSHIFT [facility] Last Admin: 11/26/21 01:06 Dose: Not Given Documented by: BRUNA Non-Admin Reason: IV Running Sucralfate (Sucralfate Oral Suspension 1 Gm/10 Ml Oral.Susp) 1 gm PO QIDACHS [facility] Last Admin: 11/25/21 20:07 Dose: 1 gm Documented by: BRUNA Tamsulosin HCl (Tamsulosin Hcl 0.4 Mg Capsule) 0.4 mg PO DAILY [facility] Last Admin: 11/24/21 11:53 Dose: Not Given Documented by: QUENTIN Non-Admin Reason: Physician Held Med Trazodone HCl (Trazodone Hcl 100 Mg Tablet) 200 mg PO BEDTIME PRN PRN Reason: Sleep Last Admin: 11/23/21 23:24 Dose: 200 mg Documented by: PARAS Vitamin D (Cholecalciferol (Vitamin D3) 25 Mcg Tablet) 25 mcg PO DAILY [facility] Last Admin: 11/24/21 11:53 Dose: Not Given Documented by: QUENTIN Non-Admin Reason: Physician Held Med Labs CBC & Chem 7: 11/26/21 06:23 11/26/21 06:23 Labs: Laboratory Results - last 24 hr 11/23/21 11/25/21 11/26/21 12:19 08:51 06:23 MCV 86.9 87.6 MCH 29.3 28.6 MCHC 33.7 32.6 RDW 14.5 14.6 Plt Count 174 178 MPV 10.1 10.2 Immature Gran % (Auto) 0.5 H Neut % (Auto) 72.8 Lymph % (Auto) 19.1 L [place] % (Auto) 5.3 Eos % (Auto) 2.1 Baso % (Auto) 0.2 Lymph # (Auto) 1.3 [place] # (Auto) 0.4 Eos # (Auto) 0.1 Baso # (Auto) 0.0 Abs Immat Gran (auto) 0.03 Absolute Neuts (auto) 4.8 Absolute Nucleated RBC 0.000 0.000 Nucleated RBC % (auto) 0.0 0.0 Anion Gap Estim Creat Clear Calc Estimated GFR Fasting Glucose Calcium Blood Type A Positive Antibody Screen NEGATIVE Crossmatch See Detail 11/26/21 06:23 MCV MCH MCHC RDW Plt Count MPV Immature Gran % (Auto) Neut % (Auto) Lymph % (Auto) [place] % (Auto) Eos % (Auto) Baso % (Auto) Lymph # (Auto) [place] # (Auto) Eos # (Auto) Baso # (Auto) Abs Immat Gran (auto) Absolute Neuts (auto) Absolute Nucleated RBC Nucleated RBC % (auto) Anion Gap 10 L Estim Creat Clear Calc 131.1 Estimated GFR > 60 Fasting Glucose 78 Calcium 8.3 L Blood Type Antibody Screen Crossmatch Assessment and Plan (1) GI bleed: Status: Acute (2) Blood in stool: Status: Acute Plan 61-year-old male with past medical history of multiple bariatric surgeries-last bariatric surgery of revision was done in February 2021,also was taking asa unclear reason:? Came with abdominal pain and GI bleed. 1. GI bleed: ED physician discussed the case with bariatric and GI-started the patient on PPIs, also ordered PRBC and platelets-follow up with GI No new nausea vomiting or bleed says currently in the ED Hold aspirin Patient is status post EGD on 11/24/21: Nearly circumferential large anastomotic ulcer with retained sutures, and with a probable vessel on distal margin and in the base of the ulcer--no active bleeding-treated with epi with good hemostasis. Vessel treated withGold probe with good hemostasis Entire ulcer then treated with Hemospray. GI recommended: continue ?IV PPI constant infusion, sucralfate suspension Discussed with GI and bariatric surgeryand during this hospital stay Received 4 PRBC, 3 platelets: H&H is stable around 9, no leon bleeding overnight. GI recommended clear liquid diet, but aortic will add ensure also If he rebleeds options would include surgery or Therapeutic Angiography by IR.? Called but was only able to leave a message on her VM. 2.HTn:blood pressure controlled, hold losartan 3.Gerd: on PPI 4 :? Hx of gout: Continue home medications. 5. DVT prophylaxis:? Mechanical devices. Above was discussed with the patient in detail length he understand and in agreement with the above plan, Inpatient stay: IV PPI and monitor for bleeding. Quality Stroke Does the patient have a stroke diagnosis?: No VTE Prior VTE?: No VTE Risk Level:: Medical - moderate - high VTE Device Contraindication: N/A - Device Ordered VTE Drug Contraindication: N/A - Med Ordered
[2021-11-26] MEDS: Sucralfate Oral Suspension 1 GM/10 ML ORAL.SUSP PO ×4 (08:11→20:19)
[2021-11-26] MEDS: busPIRone HCl 10 MG TABLET PO (08:40)
[2021-11-26] MEDS: Acetaminophen 325 MG TABLET 650 MG PO (10:34)
--- NOTE | 2021-11-26 11:00 | P.PNGS_ITS ---
Subjective Subjective Date of Service: 11/26/21 Patient reports: no new complaints Interval history: Pt states he does not have any pain today. Had 1 black stool last pm, none since. No nausea or emesis and feels much better today. Physical Exam Vital Signs: Vital Signs: Last Vital Signs Temp 98.8 F 11/26/21 07:21 Pulse 50 11/26/21 07:54 Resp 18 11/26/21 07:21 BP 146/70 H 11/26/21 07:54 Pulse Ox 98 11/26/21 07:21 BMI result Body Mass Index 30.3 Const: General: cooperative, healthy appearing, comfortable and no acute distress GI: Inspection: Yes normal to inspection Palpation (GI): Soft to palpation, nontender and no guarding Objective Data Active Medications Acetaminophen (Acetaminophen 325 Mg Tablet) 650 mg PO Q6H PRN PRN Reason: Headache Last Admin: 11/26/21 10:34 Dose: 650 mg Documented by: MARIA ESTHER Albuterol Sulfate (Albuterol Sulfate 90 Mcg 8 Gm Inhaler) 2 puff INHALE Q46H PRN PRN Reason: Wheezing Allopurinol (Allopurinol 300 Mg Tablet) 300 mg PO DAILY [facility] Last Admin: 11/24/21 11:53 Dose: Not Given Documented by: QUENTIN Non-Admin Reason: Physician Held Med Atorvastatin Calcium (Atorvastatin Calcium 40 Mg Tablet) 40 mg PO DAILY [facility] Last Admin: 11/24/21 11:53 Dose: Not Given Documented by: QUENTIN Non-Admin Reason: Physician Held Med Buspirone HCl (Buspirone Hcl 10 Mg Tablet) 10 mg PO BID PRN PRN Reason: Anxiety Buspirone HCl (Buspirone Hcl 10 Mg Tablet) 10 mg PO DAILY [facility] Last Admin: 11/26/21 08:40 Dose: 10 mg Documented by: MARIA ESTHER Calcium Carbonate (Calcium Carbonate 500 Mg Tablet) 1,000 mg PO DAILY [facility] Last Admin: 11/24/21 11:53 Dose: Not Given Documented by: QUENTIN Non-Admin Reason: Physician Held Med Colchicine (Colchicine 0.6 Mg Tablet) 0.6 mg PO DAILY PRN PRN Reason: gout Diphenhydramine HCl (Diphenhydramine Hcl 25 Mg Tablet) 50 mg PO BEDTIME [facility] Last Admin: 11/23/21 19:58 Dose: 50 mg Documented by: TOMER Sodium Chloride (Ns) 1,000 mls @ 125 mls/hr IVCONT .Q8H [facility] Last Admin: 11/26/21 03:31 Dose: 125 mls/hr Documented by: BRUNA Pantoprazole Sodium 80 mg/ (Sodium Chloride) 100 mls @ 10 mls/hr IV .Q10H [facility] Last Admin: 11/26/21 02:32 Dose: 8 mg/hr, 10 mls/hr Documented by: BRUNA Ondansetron HCl (Ondansetron Hcl 4 Mg/2 Ml Vial) 4 mg IVPUSH Q6H PRN PRN Reason: nausea Pharmacy Consult (Consult Rx Perform Med Rec) 1 each MISCELLANE ONCE PRN PRN Reason: Consult order Sodium Chloride (0.9 % Sodium Chloride Flush 3 Ml Syringe) 3 ml IVFLUSH QSHIFT [facility] Last Admin: 11/26/21 08:11 Dose: Not Given Documented by: MARIA ESTHER Non-Admin Reason: IV Running Sucralfate (Sucralfate Oral Suspension 1 Gm/10 Ml Oral.Susp) 1 gm PO QIDACHS [facility] Last Admin: 11/26/21 10:35 Dose: 1 gm Documented by: MARIA ESTHER Tamsulosin HCl (Tamsulosin Hcl 0.4 Mg Capsule) 0.4 mg PO DAILY [facility] Last Admin: 11/24/21 11:53 Dose: Not Given Documented by: QUENTIN Non-Admin Reason: Physician Held Med Trazodone HCl (Trazodone Hcl 100 Mg Tablet) 200 mg PO BEDTIME PRN PRN Reason: Sleep Last Admin: 11/23/21 23:24 Dose: 200 mg Documented by: PARAS Vitamin D (Cholecalciferol (Vitamin D3) 25 Mcg Tablet) 25 mcg PO DAILY [facility] Last Admin: 11/24/21 11:53 Dose: Not Given Documented by: QUENTIN Non-Admin Reason: Physician Held Med Labs CBC & Chem 7: 11/26/21 06:23 11/26/21 06:23 Labs: Laboratory Results - last 24 hr 11/26/21 11/26/21 06:23 06:23 MCV 87.6 MCH 28.6 MCHC 32.6 RDW 14.6 Plt Count 178 MPV 10.2 Immature Gran % (Auto) 0.5 H Neut % (Auto) 72.8 Lymph % (Auto) 19.1 L [place] % (Auto) 5.3 Eos % (Auto) 2.1 Baso % (Auto) 0.2 Lymph # (Auto) 1.3 [place] # (Auto) 0.4 Eos # (Auto) 0.1 Baso # (Auto) 0.0 Abs Immat Gran (auto) 0.03 Absolute Neuts (auto) 4.8 Absolute Nucleated RBC 0.000 Nucleated RBC % (auto) 0.0 Anion Gap 10 L Estim Creat Clear Calc 131.1 Estimated GFR > 60 Fasting Glucose 78 Calcium 8.3 L Procedures Date of Service Date of Service: 11/26/21 Progress Note: A&P Assessment and plan (1) GI bleed: Status: Acute Assessment and Plan: Patient is stable, no active bleeding, h/h stable. Can start ENsure protein shakes today if hosptialist team agrees. Would start diet with clear liquids and 1 protein shake today - drinking no faster than 1 oz every 15 minutes. If tolerates this today would increase to 2 shakes tomorrow and 3 shakes the following day,and then 4 shakes per day. I explained to patient that he will remain only liquid protien diet only until Dr Crawford repeats EGD in 4 weeks. Pt understands and agrees. Case discussed with Dr Buchanan. (2) S/P gastric bypass: Status: Acute Fall Risk Details Current Medications: Current Medications Acetaminophen (Acetaminophen 325 Mg Tablet) 650 mg PO Q6H PRN PRN Reason: Headache Last Admin: 11/26/21 10:34 Dose: 650 mg Documented by: Albuterol Sulfate (Albuterol Sulfate 90 Mcg 8 Gm Inhaler) 2 puff INHALE Q46H PRN PRN Reason: Wheezing Allopurinol (Allopurinol 300 Mg Tablet) 300 mg PO DAILY [facility] Last Admin: 11/24/21 11:53 Dose: Not Given Documented by: Atorvastatin Calcium (Atorvastatin Calcium 40 Mg Tablet) 40 mg PO DAILY [facility] Last Admin: 11/24/21 11:53 Dose: Not Given Documented by: Buspirone HCl (Buspirone Hcl 10 Mg Tablet) 10 mg PO BID PRN PRN Reason: Anxiety Buspirone HCl (Buspirone Hcl 10 Mg Tablet) 10 mg PO DAILY [facility] Last Admin: 11/26/21 08:40 Dose: 10 mg Documented by: Calcium Carbonate (Calcium Carbonate 500 Mg Tablet) 1,000 mg PO DAILY [facility] Last Admin: 11/24/21 11:53 Dose: Not Given Documented by: Colchicine (Colchicine 0.6 Mg Tablet) 0.6 mg PO DAILY PRN PRN Reason: gout Diphenhydramine HCl (Diphenhydramine Hcl 25 Mg Tablet) 50 mg PO BEDTIME [facility] Last Admin: 11/23/21 19:58 Dose: 50 mg Documented by: Sodium Chloride (Ns) 1,000 mls @ 125 mls/hr IVCONT .Q8H [facility] Last Admin: 11/26/21 03:31 Dose: 125 mls/hr Documented by: Pantoprazole Sodium 80 mg/ (Sodium Chloride) 100 mls @ 10 mls/hr IV .Q10H [facility] Last Admin: 11/26/21 02:32 Dose: 8 mg/hr, 10 mls/hr Documented by: Ondansetron HCl (Ondansetron Hcl 4 Mg/2 Ml Vial) 4 mg IVPUSH Q6H PRN PRN Reason: nausea Pharmacy Consult (Consult Rx Perform Med Rec) 1 each MISCELLANE ONCE PRN PRN Reason: Consult order Sodium Chloride (0.9 % Sodium Chloride Flush 3 Ml Syringe) 3 ml IVFLUSH QSHIFT [facility] Last Admin: 11/26/21 08:11 Dose: Not Given Documented by: Sucralfate (Sucralfate Oral Suspension 1 Gm/10 Ml Oral.Susp) 1 gm PO QIDACHS [facility] Last Admin: 11/26/21 10:35 Dose: 1 gm Documented by: Tamsulosin HCl (Tamsulosin Hcl 0.4 Mg Capsule) 0.4 mg PO DAILY [facility] Last Admin: 11/24/21 11:53 Dose: Not Given Documented by: Trazodone HCl (Trazodone Hcl 100 Mg Tablet) 200 mg PO BEDTIME PRN PRN Reason: Sleep Last Admin: 11/23/21 23:24 Dose: 200 mg Documented by: Vitamin D (Cholecalciferol (Vitamin D3) 25 Mcg Tablet) 25 mcg PO DAILY [facility] Last Admin: 11/24/21 11:53 Dose: Not Given Documented by: Time Spent With Patient Time: Total time spent is greater than 50% in coordination of care (as documented) at patient's floor/unit and/or counseling patient: Quality Stroke Does the patient have a stroke diagnosis?: No VTE Prior VTE?: No VTE Risk Level:: Medical - moderate - high VTE Device Contraindication: N/A - Device Ordered VTE Drug Contraindication: N/A - Med Ordered
--- NOTE | 2021-11-26 13:22 | MHC.CM.PN ---
pt is ready for dc appeal pending from medicare spoke with esthela [phone] from [facility] hailee who confirmed bed will be held for pt till mon called zeb who can have the approbriate amb and crew in place for mon at 10 we await decision from francisco
--- NOTE | 2021-11-26 16:28 | PM.DS ---
DS: Providers Provider Date of Service: 11/26/21 Date of admission: 11/23/21 17:03 Primary care physician: Chay Acevedo MD Consults: 11/23/21 17:03 Consult to Gastroenterology Routine Consulting Provider: [facility] [place] Gastroenterology Services Reason for consultation: Gib Has provider been notified: No 11/24/21 08:57 Consult to Critical Care Routine Consulting Provider: Ulices Colby Reason for consultation: GI bleed, hypertension Has provider been notified: Yes 11/24/21 10:03 Consult to Bariatric Surgery Routine Consulting Provider: Jose Buchanan Reason for consultation: Gib ,hx of bariatric surgery Has provider been notified: No DS: Diagnosis Discharge Diagnosis (1) GI bleed: Status: Acute (2) Blood in stool: Status: Acute DS: Summary Hospital Course Hospital Course: 61-year-old male with past medical history of multiple bariatric surgeries-last bariatric surgery of revision was done in February 2021:? Since then patient said he lost approximately around 100 lb, He came to the hospital due to started noticing black stools for 3 days and has on and off abdominal pain, yesterday he noticed maroon stools, and heard significant pain also in the abdominal area-epigastric and left lower quadrant area-so decided to come to the hospital. He said that he still has abdominal pain, also he had nausea and vomited once without blood today. Patient was using aspirin since last in year-as per the patient was given by PCP -unclear reason. Denies any use of NSAIDs. He also claims to use 1 -2 cigar per weekly. Denies any alcohol or recreation drug use. Denies any previous history of GI bleed. Patient labs:? 9.0/27 -last h/h 13.2/28.3 in 03/18/21. BMP seems mild pre renal azotemia CT/CT abdomen pelvis w con IMPRESSION: Postoperative changes from gastric bypass. Mild diverticulosis. No evidence of diverticulitis or colitis. Enlarged prostate gland. Left lower lobe pulmonary nodules. Hospital course: 61-year-old male with past medical history of multiple bariatric surgeries-last bariatric surgery of revision was done in February 2021,also was taking asa unclear reason:? Came with abdominal pain and GI bleed-Patient is receiving IV PPI drip, also received 4 PRBC as well as 3 platelet units during this admission H&H is so far stable around 10 and in addition EGD was done during this admission and found to have anastomosis site ulcer: ?EGD on 11/24/21: Nearly circumferential large anastomotic ulcer with retained sutures, and with a probable vessel on distal margin and in the base of the ulcer--no active bleeding-treated with epi with good hemostasis. Vessel treated withGold probe with good hemostasis Entire ulcer then treated with Hemosprray Patient seems to be improved with PPI and above EGD intervention: H&H stable, no bleeding anymore, GI recommended PPI and sucralfate - patient is to follow-up out patiently with PCP- monitor CBC in 1 week, also patient is to follow up with GI and bariatric surgery out patiently. patient was counseled in detail not to use aspirin, NSAID, blood thinners, if new sign of GI bleeding or abdominal pain or any dizziness or any new symptoms consider coming back to nearest emergency room. Blood pressure is maintained without blood pressure medication: hold off losartan until seen by PCP and further use of losartan and tamsulosin as per PCP, in addition counseled the patient in detail to check blood pressure morning and evening and if patient's blood pressure stays persistently above 140s then may consider start outpatient blood pressure medication. Above management discussed with patient, patient's , GI and bariatric In detail. Above management discussed with the patient in detail length he understand and in agreement with above plan. Above management discussed with the patient in detail length he understand and in agreement with the above plan, time spent 50 minutes and 50% time spent on counseling. Significant findings: As above. Procedures performed: None. Treatment and response: As above. Complications: None. Time Spent with Patient Time attestation: Total time spent providing and/or coordinating discharge services: Discharge coordination time: Greater than 30 minutes Quality: Safe Use of Opioids Does Pt have an Active Cancer Diagnosis on the Problem List?: No Quality: Stroke Does the patient have a stroke diagnosis?: No Physical Exam Vital Signs: Vital Signs: Last Vital Signs Temp 97.7 F 11/26/21 15:36 Pulse 46 L 11/26/21 15:36 Resp 18 11/26/21 15:36 BP 139/70 11/26/21 15:36 Pulse Ox 97 11/26/21 15:36 BMI result Body Mass Index 30.3 Appearance: Alert.? Oriented X3.? not in distress.? heent: eyes anicteric, mucosa moist . cvs: rrr, [id number] , no murmur res: clear to auscultation ,no rhonchii or wheezing abd: no rebound or guarding ,nt, bs present. ext :pulses present , no cyanosis . neuro: axo3 , nonfocal. DS: Data Data Completed and Pending Completed studies during hospitalization [Text1]: Procedures Bypass Stomach to Jejunum, Percutaneous Endoscopic Approach (03/17/21) Repair Diaphragm, Percutaneous Endoscopic Approach (03/17/21) Labs on day of discharge: Laboratory Results - last 24 hr 11/23/21 11/25/21 11/26/21 12:19 19:06 02:07 WBC RBC Hgb 8.9 L 8.9 L Hct 26.4 L 26.4 L MCV MCH MCHC RDW Plt Count MPV Immature Gran % (Auto) Neut % (Auto) Lymph % (Auto) [place] % (Auto) Eos % (Auto) Baso % (Auto) Lymph # (Auto) [place] # (Auto) Eos # (Auto) Baso # (Auto) Abs Immat Gran (auto) Absolute Neuts (auto) Absolute Nucleated RBC Nucleated RBC % (auto) Sodium Potassium Chloride Carbon Dioxide Anion Gap BUN Creatinine Estim Creat Clear Calc Estimated GFR Fasting Glucose Calcium Crossmatch See Detail 11/26/21 11/26/21 06:23 06:23 WBC 6.6 RBC 3.22 L Hgb 9.2 L Hct 28.2 L MCV 87.6 MCH 28.6 MCHC 32.6 RDW 14.6 Plt Count 178 MPV 10.2 Immature Gran % (Auto) 0.5 H Neut % (Auto) 72.8 Lymph % (Auto) 19.1 L [place] % (Auto) 5.3 Eos % (Auto) 2.1 Baso % (Auto) 0.2 Lymph # (Auto) 1.3 [place] # (Auto) 0.4 Eos # (Auto) 0.1 Baso # (Auto) 0.0 Abs Immat Gran (auto) 0.03 Absolute Neuts (auto) 4.8 Absolute Nucleated RBC 0.000 Nucleated RBC % (auto) 0.0 Sodium 141 Potassium 3.6 Chloride 110 H Carbon Dioxide 25 Anion Gap 10 L BUN 17 H Creatinine 0.61 Estim Creat Clear Calc 131.1 Estimated GFR > 60 Fasting Glucose 78 Calcium 8.3 L Crossmatch Additional Comments Additional comments: CT/CT abdomen pelvis w con IMPRESSION: Postoperative changes from gastric bypass. Mild diverticulosis. No evidence of diverticulitis or colitis. Enlarged prostate gland. Left lower lobe pulmonary nodules. ? Fleischner guidelines were followed. Discharge Plan Discharge Patient Disposition: Home, Self-Care Discharge Diagnosis: Gib Referrals: Chay Acevedo MD [Primary Care Provider] - 1 Week Buddy Peguero [Physician] - 2 Weeks (patient wants to make his own appointment) Discharge Medications: New sucralfate 100 mg/mL Suspension 1 g PO QIDACHS Qty: 120 0RF omeprazole 40 mg Capsule,Delayed Release(Dr/Ec) 40 mg PO BID@0630,1630 Qty: 60 0RF Continued atorvastatin 40 mg tablet 1 tab PO DAILY 0RF buspirone 10 mg tablet 1 tab PO DAILY 0RF allopurinol 300 mg tablet 300 mg PO DAILY 0RF buspirone 10 mg tablet 1 tab PO BID PRN (Reason: Anxiety) 0RF cholecalciferol (vitamin D3) 25 mcg (1,000 unit) Tablet 25 mcg PO DAILY 0RF trazodone 50 mg tablet 200 mg PO BEDTIME PRN (Reason: Sleep) 0RF Opurity Multivitamin 30 mg iron- 800 mcg tablet,chewable 1 tab PO DAILY 0RF colchicine 0.6 mg tablet 0.6 mg PO DAILY PRN (Reason: gout) 0RF ascorbate calcium (vitamin C) 500 mg tablet 500 mg PO DAILY 0RF albuterol sulfate [ProAir HFA] 90 mcg/actuation HFA aerosol inhaler 2 puff inhalation Q4-6H PRN (Reason: Wheezing) 0RF diphenhydramine HCl [Benadryl] 25 mg capsule 50 mg PO BEDTIME 0RF calcium citrate 1,000 mg tablet 1,000 mg PO DAILY 0RF Held tamsulosin 0.4 mg capsule 1 cap PO DAILY 0RF Hold Instructions: Until follow up with pcp. aspirin 81 mg Tablet,Chewable 81 mg PO DAILY 0RF Hold Instructions: Hold until clear by GI. valsartan 160 mg tablet 160 mg PO DAILY 0RF Hold Instructions: until seen by pcp or blood pressure stays cnsistently above 140 mmhg. Discharge Orders: Discharge Order (Routine); Ordered 11/29/21 Ordered By: Sukhchain Markham Diet: advance to usual diet, diabetic diet and other Activity on Discharge: As tolerated Stand Alone Forms: Patient Portal Discharge page Care Plan Goals: 61-year-old male with past medical history of multiple bariatric surgeries-last bariatric surgery of revision was done in February 2021,also was taking asa unclear reason:? Came with abdominal pain and GI bleed-Patient is receiving IV PPI drip, also received 4 PRBC as well as 3 platelet units during this admission H&H is so far stable around 10 and in addition EGD was done during this admission and found to have anastomosis site ulcer: ?EGD on 11/24/21: Nearly circumferential large anastomotic ulcer with retained sutures, and with a probable vessel on distal margin and in the base of the ulcer--no active bleeding-treated with epi with good hemostasis. Vessel treated withGold probe with good hemostasis Entire ulcer then treated with Hemosprray Patient seems to be improved with PPI and above EGD intervention: H&H stable, no bleeding anymore, GI recommended PPI and sucralfate - patient is to follow-up out patiently with PCP- monitor CBC in 1 week, also patient is to follow up with GI and bariatric surgery out patiently. patient was counseled in detail not to use aspirin, NSAID, blood thinners, if new sign of GI bleeding or abdominal pain or any dizziness or any new symptoms consider coming back to nearest emergency room. Blood pressure is maintained without blood pressure medication: hold off losartan until seen by PCP and further use of losartan and tamsulosin as per PCP, in addition counseled the patient in detail to check blood pressure morning and evening and if patient's blood pressure stays persistently above 140s then may consider start outpatient blood pressure medication. Above management discussed with the patient in detail length he understand and in agreement with above plan. Health Concerns: As above. Plan of Treatment: As above. Assessment: As above.
[2021-11-26 16:43] LABS: Hematocrit 28.2 % (42.0-52.0); Hemoglobin 9.5 g/dl (14.0-18.0)
[2021-11-26] MEDS: Dextrose 5 % and 0.9 % NaCl 1,000 ML 80 ML IVCONT (17:39)
--- NOTE | 2021-11-26 19:29 | PC.NURSE ---
1530 had liq bowel movement dark with satish castellanos. aware. H&H ordered, lab stable. Pt states he feels good, No abd pain.
[2021-11-26 20:43] LABS: Hemoglobin 9.9 g/dl (14.0-18.0); Mean Corpuscular HGB Conc 34.1 g/dl (31.0-36.0); Mean Corpuscular Hemoglobin 29.4 pg (27.0-33.0); Mean Corpuscular Volume 86.1 fL (80.0-98.0); Platelet Count 199 X10*3/uL (160-400); Red Blood Count 3.37 X10*6/uL (4.60-5.80); Red Cell Distribution Width 14.5 % (11.0-16.0); White Blood Count 6.2 X10*3/uL (4.8-10.8)
[2021-11-26] MEDS: traZODone HCL 100 MG TABLET 200 MG PO (22:09)
[2021-11-27] VITALS (24 sets, daily range): BP systolic 114–155; BP diastolic 59–81; PULSE 42–64; RESP 18–20; TEMP 36.3–37; O2SAT 95–99
[2021-11-27] MEDS: Dextrose 5 % and 0.9 % NaCl 1,000 ML 80 ML IVCONT (06:40)
[2021-11-27 07:07] LABS: Hematocrit 29.5 % (42.0-52.0); Hemoglobin 9.9 g/dl (14.0-18.0); Mean Corpuscular HGB Conc 33.6 g/dl (31.0-36.0); Mean Corpuscular Hemoglobin 29.1 pg (27.0-33.0); Mean Corpuscular Volume 86.8 fL (80.0-98.0); Mean Platelet Volume 10.3 fL (9.4-12.4); Platelet Count 191 X10*3/uL (160-400); Red Cell Distribution Width 14.7 % (11.0-16.0); White Blood Count 5.3 X10*3/uL (4.8-10.8)
[2021-11-27 07:36] LABS: Anion Gap 7 (12-20); Blood Urea Nitrogen 9 mg/dL (9-16); Calcium 8.3 mg/dL (8.4-10.2); Carbon Dioxide 31 mmol/L (22-29); Chloride 106 mmol/L (96-108); Creatinine Clr Calc Pharmacy 126.9; Estimated Glomerular Filt Rate > 60; Glucose Random 102 mg/dL (60-115); Potassium 3.3 mmol/L (3.3-5.1); Sodium 141 mmol/L (135-145)
[2021-11-27] MEDS: Sucralfate Oral Suspension 1 GM/10 ML ORAL.SUSP PO ×4 (07:56→20:04)
[2021-11-27] MEDS: 0.9 % Sodium Chloride Flush 3 ML SYRINGE IVFLUSH ×2 (07:56→20:09)
[2021-11-27] MEDS: busPIRone HCl 10 MG TABLET PO (07:56)
[2021-11-27] MEDS: Pantoprazole Sodium 80 MG in 0.9 % Sodium Chloride 80 ML 10 MG IV ×2 (08:28→20:04)
--- NOTE | 2021-11-27 11:33 | PM.EVENT ---
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 Ulcer was treated with epinephrine, Gold Probe cautery, resolution clips, and Hemospray. Pt reports having maroon colored diarrhea yesterday at 2 pm. Denies having a BM today. He has been tolerating a liquid diet with ensure. H & H has been stable over the past 48 hrs between 9.2 to 9.9 & 28 to 29.5 Maroon stools can be related to some oozing from cautery site RECOMMENDATIONS: 1. Agree with continuing IV PPI infusion for another 24 hrs 2. Continue PO sucralfate. 3. Advance diet as per bariatric surgery
--- NOTE | 2021-11-27 13:13 | P.PNIM_ITS ---
Subjective Subjective Date of Service: 11/27/21 Interval History: GIB-no BM overnight, last BM yesterday blackish stools No overnight went, no abdominal pain, no fever or chills. Review of Systems Denies any chest pain or shortness of breath or nausea or vomiting. He Physical Exam Vital Signs: Vital Signs: Last Vital Signs Temp 97.4 F 11/27/21 11:44 Pulse 54 11/27/21 11:58 Resp 19 11/27/21 11:44 BP 128/75 11/27/21 11:58 Pulse Ox 96 11/27/21 11:44 BMI result Body Mass Index 30.3 Appearance: Alert.? Oriented X3.? not in distress.? cvs: rrr, [id number] , no murmur res: clear to auscultation ,no rhonchii or wheezing abd: no rebound or guarding ,nt, bs present. ext :pulses present , no cyanosis . neuro: axo3 , nonfocal. Objective Data Active Medications Acetaminophen (Acetaminophen 325 Mg Tablet) 650 mg PO Q6H PRN PRN Reason: Headache Last Admin: 11/26/21 10:34 Dose: 650 mg Documented by: MARIA ESTHER Albuterol Sulfate (Albuterol Sulfate 90 Mcg 8 Gm Inhaler) 2 puff INHALE Q46H PRN PRN Reason: Wheezing Allopurinol (Allopurinol 300 Mg Tablet) 300 mg PO DAILY [facility] Last Admin: 11/24/21 11:53 Dose: Not Given Documented by: QUENTIN Non-Admin Reason: Physician Held Med Atorvastatin Calcium (Atorvastatin Calcium 40 Mg Tablet) 40 mg PO DAILY [facility] Last Admin: 11/24/21 11:53 Dose: Not Given Documented by: QUENTIN Non-Admin Reason: Physician Held Med Buspirone HCl (Buspirone Hcl 10 Mg Tablet) 10 mg PO BID PRN PRN Reason: Anxiety Buspirone HCl (Buspirone Hcl 10 Mg Tablet) 10 mg PO DAILY [facility] Last Admin: 11/27/21 07:56 Dose: 10 mg Documented by: NIMESH Calcium Carbonate (Calcium Carbonate 500 Mg Tablet) 1,000 mg PO DAILY [facility] Last Admin: 11/24/21 11:53 Dose: Not Given Documented by: QUENTIN Non-Admin Reason: Physician Held Med Colchicine (Colchicine 0.6 Mg Tablet) 0.6 mg PO DAILY PRN PRN Reason: gout Diphenhydramine HCl (Diphenhydramine Hcl 25 Mg Tablet) 50 mg PO BEDTIME [facility] Last Admin: 11/23/21 19:58 Dose: 50 mg Documented by: TOMER Pantoprazole Sodium 80 mg/ (Sodium Chloride) 100 mls @ 10 mls/hr IV .Q10H [facility] Last Admin: 11/27/21 08:28 Dose: 8 mg/hr, 10 mls/hr Documented by: NIMESH Ondansetron HCl (Ondansetron Hcl 4 Mg/2 Ml Vial) 4 mg IVPUSH Q6H PRN PRN Reason: nausea Pharmacy Consult (Consult Rx Perform Med Rec) 1 each MISCELLANE ONCE PRN PRN Reason: Consult order Sodium Chloride (0.9 % Sodium Chloride Flush 3 Ml Syringe) 3 ml IVFLUSH QSHIFT [facility] Last Admin: 11/27/21 07:56 Dose: 3 ml Documented by: NIMESH Sucralfate (Sucralfate Oral Suspension 1 Gm/10 Ml Oral.Susp) 1 gm PO QIDACHS [facility] Last Admin: 11/27/21 10:58 Dose: 1 gm Documented by: NIMESH Tamsulosin HCl (Tamsulosin Hcl 0.4 Mg Capsule) 0.4 mg PO DAILY [facility] Last Admin: 11/24/21 11:53 Dose: Not Given Documented by: QUENTIN Non-Admin Reason: Physician Held Med Trazodone HCl (Trazodone Hcl 100 Mg Tablet) 200 mg PO BEDTIME PRN PRN Reason: Sleep Last Admin: 11/26/21 22:09 Dose: 200 mg Documented by: DENISE Vitamin D (Cholecalciferol (Vitamin D3) 25 Mcg Tablet) 25 mcg PO DAILY [facility] Last Admin: 11/24/21 11:53 Dose: Not Given Documented by: QUENTIN Non-Admin Reason: Physician Held Med Labs CBC & Chem 7: 11/27/21 06:44 11/27/21 06:44 Labs: Laboratory Results - last 24 hr 11/23/21 11/26/21 11/27/21 12:19 20:34 06:44 MCV 86.1 86.8 MCH 29.4 29.1 MCHC 34.1 33.6 RDW 14.5 14.7 Plt Count 199 191 MPV 10.0 10.3 Absolute Nucleated RBC 0.000 0.000 Nucleated RBC % (auto) 0.0 0.0 Anion Gap Estim Creat Clear Calc Estimated GFR Random Glucose Calcium Crossmatch See Detail 11/27/21 06:44 MCV MCH MCHC RDW Plt Count MPV Absolute Nucleated RBC Nucleated RBC % (auto) Anion Gap 7 L Estim Creat Clear Calc 126.9 Estimated GFR > 60 Random Glucose 102 Calcium 8.3 L Crossmatch Assessment and Plan (1) GI bleed: Status: Acute (2) Blood in stool: Status: Acute Plan 61-year-old male with past medical history of multiple bariatric surgeries-last bariatric surgery of revision was done in February 2021,also was taking asa unclear reason:? Came with abdominal pain and GI bleed. 1. GI bleed: ED physician discussed the case with bariatric and GI-started the patient on PPIs, also ordered PRBC and platelets-follow up with GI No new nausea vomiting or bleed says currently in the ED Hold aspirin Patient is status post EGD on 11/24/21: Nearly circumferential large anastomotic ulcer with retained sutures, and with a probable vessel on distal margin and in the base of the ulcer--no active bleeding-treated with epi with good hemostasis. Vessel treated withGold probe with good hemostasis Entire ulcer then treated with Hemospray. GI recommended: continue ?IV PPI constant infusion, sucralfate suspension Discussed with GI and bariatric surgeryand during this hospital stay Received 4 PRBC, 3 platelets:? H&H is stable around 9, no leon bleeding overnight. GI recommended clear liquid diet, bariatric will add ensure also gina moniter cbc daily if no further bleed. ?If he rebleeds options would include surgery or Therapeutic Angiography by IR.? Called but was only able to leave a message on her VM. 2.HTn:blood pressure controlled, hold losartan 3.Gerd: on PPI 4 :? Hx of gout: Continue home medications. 5. DVT prophylaxis:? Mechanical devices. 6. obesity: s/p baritric surgery,further management outpatiently. Above was discussed with the patient in detail length he understand and in agree ment with the above plan, Inpatient stay:? IV PPI and monitor for bleeding. Quality Stroke Does the patient have a stroke diagnosis?: No VTE Prior VTE?: No VTE Risk Level:: Medical - moderate - high VTE Device Contraindication: N/A - Device Ordered VTE Drug Contraindication: N/A - Med Ordered
[2021-11-27] MEDS: traZODone HCL 100 MG TABLET 200 MG PO (23:31)
[2021-11-28] VITALS (10 sets, daily range): BP systolic 101–138; BP diastolic 53–65; PULSE 45–58; RESP 15–20; TEMP 36.4–36.7; O2SAT 97–100
[2021-11-28 05:46] LABS: Hematocrit 29.9 % (42.0-52.0); Mean Corpuscular HGB Conc 33.4 g/dl (31.0-36.0); Mean Corpuscular Hemoglobin 29.1 pg (27.0-33.0); Mean Corpuscular Volume 86.9 fL (80.0-98.0); Mean Platelet Volume 10.5 fL (9.4-12.4); Platelet Count 204 X10*3/uL (160-400); Red Blood Count 3.44 X10*6/uL (4.60-5.80); Red Cell Distribution Width 14.6 % (11.0-16.0); White Blood Count 4.3 X10*3/uL (4.8-10.8)
[2021-11-28] MEDS: Pantoprazole Sodium 80 MG in 0.9 % Sodium Chloride 80 ML 10 MG IV (06:20)
[2021-11-28] MEDS: Sucralfate Oral Suspension 1 GM/10 ML ORAL.SUSP PO ×4 (08:22→21:19)
[2021-11-28] MEDS: busPIRone HCl 10 MG TABLET PO (08:22)
--- NOTE | 2021-11-28 14:13 | HO.PM.IMPN ---
Subjective Subjective Date of Service: 11/28/21 Interval History: Gib Review of Systems Denies any nausea vomiting or abdominal pain or any episode of BM last night. No acute bleeding Physical Exam Vital Signs: Vital Signs: Last Vital Signs Temp 98.1 F 11/28/21 11:14 Pulse 49 L 11/28/21 11:14 Resp 18 11/28/21 11:14 BP 109/64 11/28/21 11:14 Pulse Ox 99 11/28/21 13:54 BMI result Body Mass Index 30.3 Appearance: Alert.? Oriented X3.? not in distress.? cvs: rrr, [id number] , no murmur res: clear to auscultation ,no rhonchii or wheezing abd: no rebound or guarding ,nt, bs present. ext :pulses present , no cyanosis . neuro: axo3 , nonfocal. Objective Data Active Medications Acetaminophen (Acetaminophen 325 Mg Tablet) 650 mg PO Q6H PRN PRN Reason: Headache Last Admin: 11/26/21 10:34 Dose: 650 mg Documented by: MARIA ESTHER Albuterol Sulfate (Albuterol Sulfate 90 Mcg 8 Gm Inhaler) 2 puff INHALE Q46H PRN PRN Reason: Wheezing Allopurinol (Allopurinol 300 Mg Tablet) 300 mg PO DAILY [facility] Last Admin: 11/24/21 11:53 Dose: Not Given Documented by: QUENTIN Non-Admin Reason: Physician Held Med Atorvastatin Calcium (Atorvastatin Calcium 40 Mg Tablet) 40 mg PO DAILY [facility] Last Admin: 11/24/21 11:53 Dose: Not Given Documented by: QUENTIN Non-Admin Reason: Physician Held Med Buspirone HCl (Buspirone Hcl 10 Mg Tablet) 10 mg PO BID PRN PRN Reason: Anxiety Buspirone HCl (Buspirone Hcl 10 Mg Tablet) 10 mg PO DAILY [facility] Last Admin: 11/28/21 08:22 Dose: 10 mg Documented by: NIMESH Calcium Carbonate (Calcium Carbonate 500 Mg Tablet) 1,000 mg PO DAILY [facility] Last Admin: 11/24/21 11:53 Dose: Not Given Documented by: QUENTIN Non-Admin Reason: Physician Held Med Colchicine (Colchicine 0.6 Mg Tablet) 0.6 mg PO DAILY PRN PRN Reason: gout Diphenhydramine HCl (Diphenhydramine Hcl 25 Mg Tablet) 50 mg PO BEDTIME [facility] Last Admin: 11/23/21 19:58 Dose: 50 mg Documented by: TOMER Ondansetron HCl (Ondansetron Hcl 4 Mg/2 Ml Vial) 4 mg IVPUSH Q6H PRN PRN Reason: nausea Pantoprazole Sodium (Pantoprazole Sodium 40 Mg/10 Ml Vial) 40 mg IVPUSH BID@0630,1630 [facility] Pharmacy Consult (Consult Rx Perform Med Rec) 1 each MISCELLANE ONCE PRN PRN Reason: Consult order Sodium Chloride (0.9 % Sodium Chloride Flush 3 Ml Syringe) 3 ml IVFLUSH QSHIFT [facility] Last Admin: 11/28/21 08:22 Dose: Not Given Documented by: NIMESH Non-Admin Reason: IV Running Sucralfate (Sucralfate Oral Suspension 1 Gm/10 Ml Oral.Susp) 1 gm PO QIDACHS [facility] Last Admin: 11/28/21 11:46 Dose: 1 gm Documented by: NIMESH Tamsulosin HCl (Tamsulosin Hcl 0.4 Mg Capsule) 0.4 mg PO DAILY [facility] Last Admin: 11/24/21 11:53 Dose: Not Given Documented by: QUENTIN Non-Admin Reason: Physician Held Med Trazodone HCl (Trazodone Hcl 100 Mg Tablet) 200 mg PO BEDTIME PRN PRN Reason: Sleep Last Admin: 11/27/21 23:31 Dose: 200 mg Documented by: HOLLY Vitamin D (Cholecalciferol (Vitamin D3) 25 Mcg Tablet) 25 mcg PO DAILY [facility] Last Admin: 11/24/21 11:53 Dose: Not Given Documented by: QUENTIN Non-Admin Reason: Physician Held Med Labs CBC & Chem 7: 11/28/21 04:28 11/27/21 06:44 Labs: Laboratory Results - last 24 hr 11/28/21 04:28 MCV 86.9 MCH 29.1 MCHC 33.4 RDW 14.6 Plt Count 204 MPV 10.5 Absolute Nucleated RBC 0.000 Nucleated RBC % (auto) 0.0 Assessment and Plan (1) GI bleed: Status: Acute (2) Blood in stool: Status: Acute Plan 61-year-old male with past medical history of multiple bariatric surgeries-last bariatric surgery of revision was done in February 2021,also was taking asa unclear reason:? Came with abdominal pain and GI bleed. 1. GI bleed: ED physician discussed the case with bariatric and GI-started the patient on PPIs, also ordered PRBC and platelets-follow up with GI No new nausea vomiting or bleed says currently in the ED Hold aspirin Patient is status post EGD on 11/24/21: Nearly circumferential large anastomotic ulcer with retained sutures, and with a probable vessel on distal margin and in the base of the ulcer--no active bleeding-treated with epi with good hemostasis. Vessel treated withGold probe with good hemostasis Entire ulcer then treated with Hemospray. GI recommended: continue ?IV PPI constant infusion, sucralfate suspension Discussed with GI and bariatric surgeryand during this hospital stay Received 4 PRBC, 3 platelets:? H&H is stable around 9, no leon bleeding overnight. d/w Gi and bariatric : advanced diet, continue ppi for 24 hrs gina moniter cbc daily if no further bleed. ?If he rebleeds options would include surgery or Therapeutic Angiography by IR.? Called but was only able to leave a message on her VM. 2.HTn:blood pressure controlled, hold losartan 3.Gerd: on PPI 4 :? Hx of gout: Continue home medications. 5. DVT prophylaxis:? Mechanical devices. 6. obesity: s/p baritric surgery,further management outpatiently. Above was discussed with the patient in detail length he understand and in agreement with the above plan, Inpatient stay:? IV PPI and monitor for bleeding Quality Stroke Does the patient have a stroke diagnosis?: No VTE Prior VTE?: No VTE Risk Level:: Medical - moderate - high VTE Device Contraindication: N/A - Device Ordered VTE Drug Contraindication: N/A - Med Ordered
[2021-11-28] MEDS: 0.9 % Sodium Chloride Flush 3 ML SYRINGE IVFLUSH ×2 (17:19→21:22)
[2021-11-28] MEDS: Pantoprazole Sodium 40 MG/10 ML VIAL IVPUSH (17:20)
[2021-11-28] MEDS: traZODone HCL 100 MG TABLET 200 MG PO (23:21)
[2021-11-29] VITALS (8 sets, daily range): BP systolic 93–114; BP diastolic 52–59; PULSE 44–64; RESP 15–19; TEMP 36.6–36.8; O2SAT 98–100
[2021-11-29] MEDS: Pantoprazole Sodium 40 MG/10 ML VIAL IVPUSH (06:18)
[2021-11-29 07:02] LABS: Hematocrit 30.1 % (42.0-52.0); Hemoglobin 10.1 g/dl (14.0-18.0)
[2021-11-29] MEDS: busPIRone HCl 10 MG TABLET PO (08:10)
[2021-11-29] MEDS: Sucralfate Oral Suspension 1 GM/10 ML ORAL.SUSP PO ×3 (08:10→16:37)
[2021-11-29] MEDS: 0.9 % Sodium Chloride Flush 3 ML SYRINGE IVFLUSH ×2 (08:10→16:37)
[2021-11-29] MEDS: allopurinoL 300 MG TABLET PO (08:10)
--- NOTE | 2021-11-29 09:57 | PM.PNGS ---
Subjective Subjective Date of Service: 11/29/21 Patient reports: no new complaints, feels better and tolerating liquids well Interval history: 61?yo male who is s/p conversion of LSG to GBP on?03/17/[address] Frances. Found to have significant anemia secondary to gastric ulcer requiring transfusion of PRBC,PLT and EGD with hemostasis and sclrotherapy by GI. Since stabilized H/H and tolerating 3 Ensure shakes daily with goal of 4 daily. Remains on PPI BID and carafate. Today he reports feeling well, tolerating liquids, no abdominal pain or cramping. No nausea. Loose stools yesterday but josh yet today. Reports stools yesterday with some black but improved on daily basis. Physical Exam Vital Signs: Vital Signs: Last Vital Signs Temp 98.2 F 11/29/21 07:43 Pulse 64 11/29/21 07:54 Resp 18 11/29/21 07:43 BP 93/54 L 11/29/21 07:54 Pulse Ox 98 11/29/21 07:43 BMI result Body Mass Index 30.3 Resp: Effort & Inspection: normal respiratory effort GI: Palpation (GI): Soft to palpation, nontender and no guarding Auscultation: normal bowel sounds Objective Data Active Medications Acetaminophen (Acetaminophen 325 Mg Tablet) 650 mg PO Q6H PRN PRN Reason: Headache Last Admin: 11/26/21 10:34 Dose: 650 mg Documented by: MARIA ESTHER Albuterol Sulfate (Albuterol Sulfate 90 Mcg 8 Gm Inhaler) 2 puff INHALE Q46H PRN PRN Reason: Wheezing Allopurinol (Allopurinol 300 Mg Tablet) 300 mg PO DAILY [facility] Last Admin: 11/29/21 08:10 Dose: 300 mg Documented by: MERI Atorvastatin Calcium (Atorvastatin Calcium 40 Mg Tablet) 40 mg PO DAILY [facility] Last Admin: 11/24/21 11:53 Dose: Not Given Documented by: QUENTIN Non-Admin Reason: Physician Held Med Buspirone HCl (Buspirone Hcl 10 Mg Tablet) 10 mg PO BID PRN PRN Reason: Anxiety Buspirone HCl (Buspirone Hcl 10 Mg Tablet) 10 mg PO DAILY [facility] Last Admin: 11/29/21 08:10 Dose: 10 mg Documented by: MERI Calcium Carbonate (Calcium Carbonate 500 Mg Tablet) 1,000 mg PO DAILY [facility] Last Admin: 11/24/21 11:53 Dose: Not Given Documented by: QUENTIN Non-Admin Reason: Physician Held Med Colchicine (Colchicine 0.6 Mg Tablet) 0.6 mg PO DAILY PRN PRN Reason: gout Diphenhydramine HCl (Diphenhydramine Hcl 25 Mg Tablet) 50 mg PO BEDTIME [facility] Last Admin: 11/23/21 19:58 Dose: 50 mg Documented by: TOMER Ondansetron HCl (Ondansetron Hcl 4 Mg/2 Ml Vial) 4 mg IVPUSH Q6H PRN PRN Reason: nausea Pantoprazole Sodium (Pantoprazole Sodium 40 Mg/10 Ml Vial) 40 mg IVPUSH BID@0630,1630 [facility] Last Admin: 11/29/21 06:18 Dose: 40 mg Documented by: GENI Pharmacy Consult (Consult Rx Perform Med Rec) 1 each MISCELLANE ONCE PRN PRN Reason: Consult order Sodium Chloride (0.9 % Sodium Chloride Flush 3 Ml Syringe) 3 ml IVFLUSH QSHIFT [facility] Last Admin: 11/29/21 08:10 Dose: 3 ml Documented by: MERI Sucralfate (Sucralfate Oral Suspension 1 Gm/10 Ml Oral.Susp) 1 gm PO QIDACHS [facility] Last Admin: 11/29/21 08:10 Dose: 1 gm Documented by: MERI Tamsulosin HCl (Tamsulosin Hcl 0.4 Mg Capsule) 0.4 mg PO DAILY [facility] Last Admin: 11/24/21 11:53 Dose: Not Given Documented by: QUENTIN Non-Admin Reason: Physician Held Med Trazodone HCl (Trazodone Hcl 100 Mg Tablet) 200 mg PO BEDTIME PRN PRN Reason: Sleep Last Admin: 11/28/21 23:21 Dose: 200 mg Documented by: GENI Vitamin D (Cholecalciferol (Vitamin D3) 25 Mcg Tablet) 25 mcg PO DAILY [facility] Last Admin: 11/24/21 11:53 Dose: Not Given Documented by: QUENTIN Non-Admin Reason: Physician Held Med Labs CBC & Chem 7: 11/29/21 06:17 11/27/21 06:44 Procedures Date of Service Date of Service: 11/29/21 Progress Note: A&P Assessment and plan (1) GI bleed: Status: Acute Assessment and Plan: Would increase shakes to his goal of 4 per day. Continue PO water/crystal light/propel. Continue BID PPI and QID Sulcrafate. He has an oupt appointment with me 12/16/21. He will be scheduled for an outpt EGD with Dr Buchanan for the first week in December ( approx 4 weeks after initial EGD ) and will remain on liquid diet until then. Fall Risk Details Current Medications: Current Medications Acetaminophen (Acetaminophen 325 Mg Tablet) 650 mg PO Q6H PRN PRN Reason: Headache Last Admin: 11/26/21 10:34 Dose: 650 mg Documented by: Albuterol Sulfate (Albuterol Sulfate 90 Mcg 8 Gm Inhaler) 2 puff INHALE Q46H PRN PRN Reason: Wheezing Allopurinol (Allopurinol 300 Mg Tablet) 300 mg PO DAILY [facility] Last Admin: 11/29/21 08:10 Dose: 300 mg Documented by: Atorvastatin Calcium (Atorvastatin Calcium 40 Mg Tablet) 40 mg PO DAILY [facility] Last Admin: 11/24/21 11:53 Dose: Not Given Documented by: Buspirone HCl (Buspirone Hcl 10 Mg Tablet) 10 mg PO BID PRN PRN Reason: Anxiety Buspirone HCl (Buspirone Hcl 10 Mg Tablet) 10 mg PO DAILY [facility] Last Admin: 11/29/21 08:10 Dose: 10 mg Documented by: Calcium Carbonate (Calcium Carbonate 500 Mg Tablet) 1,000 mg PO DAILY [facility] Last Admin: 11/24/21 11:53 Dose: Not Given Documented by: Colchicine (Colchicine 0.6 Mg Tablet) 0.6 mg PO DAILY PRN PRN Reason: gout Diphenhydramine HCl (Diphenhydramine Hcl 25 Mg Tablet) 50 mg PO BEDTIME [facility] Last Admin: 11/23/21 19:58 Dose: 50 mg Documented by: Ondansetron HCl (Ondansetron Hcl 4 Mg/2 Ml Vial) 4 mg IVPUSH Q6H PRN PRN Reason: nausea Pantoprazole Sodium (Pantoprazole Sodium 40 Mg/10 Ml Vial) 40 mg IVPUSH BID@0630,1630 [facility] Last Admin: 11/29/21 06:18 Dose: 40 mg Documented by: Pharmacy Consult (Consult Rx Perform Med Rec) 1 each MISCELLANE ONCE PRN PRN Reason: Consult order Sodium Chloride (0.9 % Sodium Chloride Flush 3 Ml Syringe) 3 ml IVFLUSH QSHIFT [facility] Last Admin: 11/29/21 08:10 Dose: 3 ml Documented by: Sucralfate (Sucralfate Oral Suspension 1 Gm/10 Ml Oral.Susp) 1 gm PO QIDACHS [facility] Last Admin: 11/29/21 08:10 Dose: 1 gm Documented by: Tamsulosin HCl (Tamsulosin Hcl 0.4 Mg Capsule) 0.4 mg PO DAILY [facility] Last Admin: 11/24/21 11:53 Dose: Not Given Documented by: Trazodone HCl (Trazodone Hcl 100 Mg Tablet) 200 mg PO BEDTIME PRN PRN Reason: Sleep Last Admin: 11/28/21 23:21 Dose: 200 mg Documented by: Vitamin D (Cholecalciferol (Vitamin D3) 25 Mcg Tablet) 25 mcg PO DAILY [facility] Last Admin: 11/24/21 11:53 Dose: Not Given Documented by: Time Spent With Patient Time: Total time spent is greater than 50% in coordination of care (as documented) at patient's floor/unit and/or counseling patient: Quality Stroke Does the patient have a stroke diagnosis?: No VTE Prior VTE?: No VTE Risk Level:: Medical - moderate - high VTE Device Contraindication: N/A - Device Ordered VTE Drug Contraindication: N/A - Med Ordered
--- NOTE | 2021-11-29 13:35 | MHC.CM.PN ---
per rounds pt may be dcd today plan is home no servceis
[2021-11-29] MEDS: Omeprazole 40 MG CAPSULE.DR PO (16:37)
== END 2021-11-29 18:41 | disposition home or self-care (01) | DRG 223 ==
LOC: HO.ED 15:18 → HO.EDOVER 17:30 → HO.IMC 18:06
PROVIDERS: Internal Medicine; Admitting Provider Internal Medicine; Emergency Provider Emergency Medicine; PCP Internal Medicine; Visit Provider Internal Medicine
PROC: 0DJ08ZZ Inspection of Upper Intestinal Tract, Via Natural or Artificial Opening Endoscopic (ICD-10-PCS; CPT 43235; principal; 2021-11-24 11:30)
DX: K91.89 Other postprocedural complications and disorders of digestive system (principal); K28.4 Chronic or unspecified gastrojejunal ulcer with hemorrhage; K91.2 Postsurgical malabsorption, not elsewhere classified; D62 Acute posthemorrhagic anemia; E86.1 Hypovolemia; I10 Essential (primary) hypertension; K21.9 Gastro-esophageal reflux disease without esophagitis; M10.9 Gout, unspecified; F17.290 Nicotine dependence, other tobacco product, uncomplicated; Z71.6 Tobacco abuse counseling; R91.8 Other nonspecific abnormal finding of lung field; M19.90 Unspecified osteoarthritis, unspecified site; E66.8 Other obesity; F32.5 Major depressive disorder, single episode, in full remission; Z68.30 Body mass index [BMI] 30.0-30.9, adult; Z63.5 Disruption of family by separation and divorce; Z20.822 Contact with and (suspected) exposure to COVID-19; Z98.84 Bariatric surgery status; Z99.89 Dependence on other enabling machines and devices; Z79.82 Long term (current) use of aspirin; Z79.899 Other long term (current) drug therapy
CPT/HCPCS: 36415; 36430; 74177; 80048; 80076; 82272; 83690; 84484; 85014; 85018; 85025; 85027; 85610; 86850; 86900; 86901; 86923; 87635; 96361; 96374; 96375; 99285; 99291; J0171; J1100; J2250; J2270; J2405; J2550; J3010; P9016; P9035; Q0163; Q9967

== ENCOUNTER 2021-12-18 15:20 | Inpatient (IN) | payer BC, SELFPAY ==
--- NOTE | ~2021-12-18 | MR_ITS ---
EXAMINATION: MR ABDOMEN WITHOUT CONTRAST CLINICAL INFORMATION: Gallstone pancreatitis COMPARISON: Previous CT of the abdomen and pelvis 11/23/2021 TECHNIQUE: MR abdomen is performed without gadolinium contrast. MRCP sequences were performed. FINDINGS: LUNG BASES: The visualized lung bases are unremarkable. LIVER, GALLBLADDER, AND BILIARY TREE: The liver appears normal in size, shape and signal. No focal liver lesion is seen. The gallbladder is upper normal in size. There are small gallstones in the gallbladder. There is question of mild gallbladder wall thickening or edema. Gallbladder wall measures 4 mm. MRCP sequences are significantly limited/nondiagnostic due to artifact from surgical clips. No intra or extrahepatic biliary duct dilatation is seen. PANCREAS: Pancreas appears normal in size and signal. SPLEEN: Unremarkable. ADRENAL GLANDS: Unremarkable. KIDNEYS AND URETERS: The kidneys are normal in size and shape. No hydronephrosis. No perinephric stranding. GASTROINTESTINAL TRACT: No bowel obstruction. No ascites or fluid collection. Postsurgical changes to the stomach. ABDOMINAL WALL: No significant hernia is appreciated. LYMPH NODES: No lymphadenopathy. VASCULAR: Unremarkable. There is diffuse subcutaneous edema or anasarca. OSSEOUS STRUCTURES: Marrow signal normal. There is loss of bright T2 disc signal and degenerative disc disease. MR/MR MRCP IMPRESSION: Limited exam. Upper normal-size gallbladder and small gallstones. Question mild gallbladder wall thickening or edema. The gallbladder wall measures up to 4 mm. Nondiagnostic MRCP exam. No intra or extrahepatic biliary duct dilatation. Normal-appearing pancreas.
--- NOTE | 2021-12-18 15:27 | ED_ITS ---
HPI - Abdominal Pain General Chief Complaint: Abdominal Pain Stated Complaint: bariatric sx f/u Time Seen by Provider: 12/18/21 15:25 Source: patient and EMS Mode of arrival: EMS Limitations: no limitations History of Present Illness HPI narrative: 61-year-old male with a past medical history of diabetes, HTN, gout who is status post conversion of LSG to GBP on 03/17/[address] Frances who also had a history of an upper GI bleed who presented to [facility] overnight on 12/17/21 with complaints of fevers up to 101.0, nausea/vomiting and RUQ abdominal pain since yesterday that started at home while he was sitting at his home desk then went to [facility] for treatment and the plan was to be admitted for pancreatitis and possibly cholecystitis/choledocholithiasis causing pancreatitis confirmed by ultrasound and CT scan of abdomen and pelvis with associated low blood pressures, hypokalemia and sepsis. Although instead of admitting at their hospital they decided to transfer him here to [facility] due to he had all his procedures here and was already being managed here in the past at [facility] therefore they spoke to Vazquez Sparks PA-C and Dr. Buchanan who agreed that the patient should be transferred for further evaluation treatment here at [facility]. At [facility] they gave a full 30 cc of IV Fluid bolus, IV potassium r epletion, IV Rocephin and Flagyl. Patient received IV Rocephin and Flagyl at 02:00. At this time patient reports he is feeling much comfortable and denies any additional complaints or concerns. MD elicited complaint: abdominal pain Pertinent past history: gastrointestinal bleeding and other (See above) Onset (ago): day(s) (2) Pain Consistency: constant Location: RUQ Associated symptoms: nausea, vomiting, fever and chills Treatments prior to arrival: other (See above) Related Data Home Medications Medication Instructions Recorded Confirmed albuterol sulfate 90 mcg/actuation 2 puff INHALATION Q4-6H PRN 08/28/20 12/18/21 aerosol inhaler (ProAir HFA) colchicine 0.6 mg tablet 0.6 mg PO DAILY PRN tab 08/28/20 12/18/21 iron,carbonyl 30 mg-folic acid 800 1 tab PO DAILY 08/28/20 12/18/21 zyp-[id number]-endp chewable tablet (Opurity Multivitamin) valsartan 160 mg tablet 160 mg PO DAILY 08/28/20 12/18/21 trazodone 50 mg tablet 200 mg PO BEDTIME PRN tab 04/01/21 12/18/21 diphenhydramine HCl 25 mg capsule 50 mg PO BEDTIME cap 04/30/21 12/18/21 (Benadryl) allopurinol 300 mg tablet 300 mg PO DAILY 11/23/21 12/18/21 atorvastatin 40 mg tablet 1 tab PO DAILY 11/23/21 12/18/21 buspirone 10 mg tablet 1 tab PO DAILY 11/23/21 12/18/21 tamsulosin 0.4 mg capsule 1 cap PO DAILY 11/23/21 12/18/21 lorazepam 2 mg tablet 2 mg PO DAILY 12/18/21 12/18/21 sucralfate 1 gram tablet 1 tab PO TID 12/18/21 12/18/21 Previous Rx's Medication Instructions Recorded omeprazole 40 mg capsule,delayed 40 mg PO BID@0630,1630 #60 cap 11/29/21 release Allergies Allergy/AdvReac Type Severity Reaction Status Date / Time No Known Allergies Allergy Verified 12/17/21 14:01 Review of Systems Review of Systems Constitutional : + fever/chills/fatigue/malaise, No Weight loss, No Night Sweats ENT/Mouth : No Hearing loss, No Ear Pain, No Nasal Congestion, No Sinus Pain, No Hoarseness, No sore throat, No Rhinorrhea, No Swallowing Difficulty Eyes: No Eye Pain, No Swelling, No Redness, No Foreign Body, No Discharge, No Vision Changes Cardiovascular : No Chest Pain, No SOB, No Dyspnea on Exertion, No Orthopnea, No Edema, No Palpitations Respiratory : No Cough, No Sputum, No Wheezing, No Smoke Exposure, No Dyspnea Gastrointestinal : + nausea/vomiting/right upper quadrant abdominal pain, No Diarrhea, No Constipation, No Hematochezia, No Melena Genitourinary : no irregular bleeding, No Dysuria, No Urinary Frequency, No Hematuria, No Urinary Incontinence, No Urgency, No Flank Pain, No Urinary Flow Changes, No Hesitancy Musculoskeletal : No joint pain, No Myalgias, No Joint Swelling Skin : No Skin Lesions, No rash Neuro : No Weakness, No Numbness, No Paresthesias, No Loss of Consciousness, No Dizziness, No Headache Psych : No Anxiety/Panic, No Depression, No SI/HI/AH/VH, No Social Issues, Heme/Lymph: No Bruising, No Bleeding,No Lymphadenopathy Endocrine : No Polyuria, No Polydipsia, No Temperature Intolerance Yes all other systems are reviewed and are negative [facility] Past Medical History Attestation statement: The following information was validated with the patient. Medical History Acid reflux Arthritis Depression Gout Heart murmur Hiatal hernia History of blood transfusion History of concussion HTN (hypertension) Intestinal malabsorption following gastrectomy Migraines Pre-diabetes Preoperative testing Right rotator cuff tear Sleep apnea Surgical History H/O nasal septoplasty History of ankle surgery History of gastric bypass History of repair of hiatal hernia History of sleeve gastrectomy History of tonsillectomy History of total adrenalectomy Hx of colonoscopy Hx of esophagogastroduodenoscopy S/P gastric bypass Status post left foot surgery Family History Family History Father CHF (congestive heart failure) Mother Breast cancer Brother No problems noted. Brother No problems noted. Sister No problems noted. Sister No problems noted. Son No problems noted. Daughter Mast cell disorder Chriss-Danlos syndrome Chiari malformation Social History Social History Are you a primary patient care technician to a significant other at home: No Do you presently have visiting nurse or other home services: No Alcohol intake: current Alcohol intake frequency: a few times a month Alcohol type: hard liquor Patient Tobacco Use Status: Former Tobacco user Quit Date: 11/29/2021 Tobacco use type: Cigarette Use of substances other than those prescribed or required for medical reasons: No Advance Directives: Yes Advance Directives on File: Yes Advance Directives Date on File: 11/30/21 service: No Physical Exam ED Vital Signs: Vital Signs - 24 hr 12/18/21 15:31 Temperature 98.8 F Pulse Rate 62 Respiratory Rate 14 Blood Pressure 106/52 L Pulse Oximetry 97 BMI result Body Mass Index 27.8 vital signs have been reviewed as normal and appeared to be correct. Blood pressure 106/52. Heart rate normal. Respiration rate normal. Temperature normal. Oxygen saturation normal. Appearance: Alert. Oriented X3. No acute distress. Head: Normal external exam. Normocephalic. Atraumatic. Eyes: PERRLA. EOMI. Conjunctiva and sclera normal. Eyelids normal. ENT: EAC normal. TM's Normal. Pharynx normal. Uvula midline. Moist mucous membranes. No lesions/ulcerations or masses noted on the tongue. Normal voice. No trismus noted. No drooling noted. No muffled voice noted. Neck: Normal inspection. Neck supple. FROM. No adenopathy. Thyroid Normal. No tracheal deviation noted. No crepitus is noted. No meningeal signs. No neck mass noted. No signs of trauma noted. CVS: Normal heart rate and rhythm. Heart sound normal. Pulses normal throughout. No murmurs/rales/gallops. Respiratory: No respiratory distress. Painless inspiration. Breath sounds normal. No wheezes/rales/rhonchi noted. Chest nontender. No crepitus is noted. No signs of trauma noted. No accessory muscle usage noted or decreased air movement noted. No signs of trauma. Abdomen: Soft and tenderness to palpation to epigastric/right upper quadrant/upper abdomen with guarding. Bowel sounds normal in all 4 quadrants. No distention noted. No organomegaly noted. No visible injury noted. Back: No CVA tenderness. Full range of motion noted. Nontender. No signs of trauma. Patient neuro intact bilaterally and distally on all 4 extremities. Patient's reflexes intact bilaterally and distally on all 4 extremities. No rashes/lesion/induration/fluctuance or signs of infection noted. Skin: Skin warm and dry. Normal skin color. Normal skin turgor. No rashes/lesions/lacerations noted. Extremities: No lower extremity edema. No calf tenderness is noted. Extremities exhibit normal range of motion and nontender. Neuro: Oriented X 3. No motor deficit. No sensory deficit. Reflexes normal. Normal steady gait. No focal neuro deficits noted. CN's II-XII intact bilaterally? Vascular: + radial pulses/+ 2 distal pedal pulses/+2 dorsalis pedis b/l. Normal cap refill. No cyanosis noted to upper extremity nails and lower extremity toes nails. Course Course Course Narrative: 15:50pm - 61-year-old male with a past medical history of diabetes, HTN, gout who is status post conversion of LSG to GBP on 03/17/[address] Frances who also had a history of an upper GI bleed who is being transferred from [facility] for further evaluation treatment of his fevers, N/V and RUQ abdominal pain with pancreatitis possibly being caused by choledocholithiasis with associated hypokalemia, low BP and sepsis presenting to the ED via EMS to be admitted by our bariatric surgeons Dr. Buchanan due to patient already being treated here. When I reviewed the patient's records it appears that the patient received a full 30 cc of IV Fluid bolus, IV potassium repletion, IV Rocephin and Flagyl. Patient received IV Rocephin and Flagyl at 02:00. At this time patient reports he is feeling much comfortable and denies any additional complaints or concerns. Plan: Will place an NPO per Vazquez Sparks PA-C. Will also give the patient another g of Rocephin and 500 mg of Flagyl plan to admit to bariatric surgery. Patient understands agrees with this plan. MDM - Abdominal Pain Medical Records Attestation: I reviewed the patient's medical records. Lab Data Attestation: I reviewed the patient's lab results. Labs: Lab Results 12/18/21 Range/Units 15:32 POC Glucose 86 (60-115) mg/dL Critical Care Time Critical Care Time Critical Care Time: Yes Total Critical Care Time: 60 Attestation: I personally attest to this time spent taking care of the patient Discharge Plan Discharge Clinical Impression: Abdominal pain, acute, right upper quadrant, Gall stone pancreatitis Prescriptions: No Action atorvastatin 40 mg tablet 1 tab PO DAILY 0RF tamsulosin 0.4 mg capsule 1 cap PO DAILY 0RF Hold Instructions: Until follow up with pcp. buspirone 10 mg tablet 1 tab PO DAILY 0RF allopurinol 300 mg tablet 300 mg PO DAILY 0RF omeprazole 40 mg Capsule,Delayed Release(Dr/Ec) 40 mg PO BID@0630,1630 Qty: 60 0RF sucralfate 1 gram tablet 1 tab PO TID 0RF lorazepam 2 mg Tablet 2 mg PO DAILY 0RF trazodone 50 mg tablet 200 mg PO BEDTIME PRN (Reason: Sleep) 0RF valsartan 160 mg tablet 160 mg PO DAILY 0RF Hold Instructions: until seen by pcp or blood pressure stays cnsistently above 140 mmhg. Opurity Multivitamin 30 mg iron- 800 mcg tablet,chewable 1 tab PO DAILY 0RF colchicine 0.6 mg tablet 0.6 mg PO DAILY PRN (Reason: gout) 0RF albuterol sulfate [ProAir HFA] 90 mcg/actuation HFA aerosol inhaler 2 puff inhalation Q4-6H PRN (Reason: Wheezing) 0RF diphenhydramine HCl [Benadryl] 25 mg capsule 50 mg PO BEDTIME 0RF
[2021-12-18 15:31] VITALS: BP 100/60; BP 106/52; PULSE 60; PULSE 62; RESP 14; TEMP 37.1; O2SAT 97; O2SAT 98; BMI 27.8
[2021-12-18 15:37] LABS: Glucose, Whole Blood 86 mg/dL (60-115)
[2021-12-18] MEDS: cefTRIAXone sodium 1 GM in 0.9 % Sodium Chloride 50 ML IV (16:11)
[2021-12-18] MEDS: metroNIDAZOLE/NS 500 MG/100 ML PIGGYBACK 100 MG IV (16:11)
--- NOTE | 2021-12-18 16:16 | PHA.MEDREC ---
Pharmacy Consult ? Medication Reconciliation Pharmacy has completed the medication reconciliation. Patient states that he stopped taking valsartan, tamsulosin, atorvastatin and buspirone on his last visit on 11/29/21. He said that the doctors here told him to because of his low BP. Patient also states that since he is not taking the buspirone he has been taking 2 mg of lorazepam a day, but the last time he filled lorazepam was 10/2020.
[2021-12-18 17:24] VITALS: BP 109/56; PULSE 63; RESP 16; TEMP 37.2; O2SAT 97
--- NOTE | 2021-12-18 17:34 | PC.NURSE ---
Spoke to RN at [facility]. Confirms blood cx were drawn x 2. Last dose of dilauded 1 mg given at 1330. Last doses of rocephin and flagyl at 0200.
--- NOTE | 2021-12-18 18:01 | P.HPGS_ITS ---
History of Present Illness History of Present Illness Date of Service: 12/18/21 Chief complaint: gallstone pancreatitis Narrative: Calvin Pelaez is a 61 year old male, who has a history of conversion of LSG to GBP in February 2021 and recent GI bleed from anastomotic ulcer in November 2021, p resented to [facility] yesterday with right upper quadrant pain. He states that he woke yesterday morning and had been in his usual state of health, tolerating 4 Premier protein shakes daily and 60-100 oz fluids with resolution of previous black stools, when he began to develop right upper quadrant pain around 11:00. The pain was off and on although increased substantially at around 1800 hrs when he developed nausea and associated vomiting. He reports vomiting a yellow bilious material. The pain abated somewhat after approximately an hour and he went to bed. He was awoken by pain between 2200 and 2300 hrs. He called the ambulance and was transported to [facility]. Initial workup at [facility] was concerning for sepsis with a lactate of 2.3, white blood cell count also 2.3, temperature 100.6 degrees, blood pressure 105/40. He was given IV fluids, 30 cc/kg, IV potassium for a K+ of 3.2, ceftriaxone and metronidazole. Workup included CTA of the chest, CT the abdomen and pelvis with IV and oral contrast as well as chest x-ray and right upper quadrant ultrasound. Lab workup revealed a lipase of 5000, AST 451, ALT of 242, total bilirubin 2.1. CT was concerning for pancreatitis. Right upper quadrant ultrasound concerning for layering gallstones and was felt that he may have gallstone associated pancreatitis. General surgery was consulted and request was made for transfer to [facility]. I discussed the case with [facility] ER attending, Dr. Bruce, she had requested transfer to [facility] per General surgery's recommendations. The case was discussed with Dr. Buchanan and once it was made clear to all parties that if he were to be transferred to [place] he would be seen by a surgeon who has not operated on him or has seen him in the past, similar to the scenario at [facility], patient requested transfer to [facility] and he was transported to [place] without incident or delay. Patient will be admitted to the Bariatric Service, he will be NPO, he will be given IV fluids, Qureshi catheter for monitoring output, telemetry, IV antibiotics, follow-up lab data in the morning and consult to Gastroenterology for possible lap assisted ERCP once pancreatitis improves. Review of Systems Review of Systems: Positive for epigastric pain, right upper quadrant pain, mild anxiety, mild intermittent nausea. Yes all other systems are reviewed and are negative PMF Past Medical History Medical History Acid reflux Arthritis Depression Gout Heart murmur Hiatal hernia History of blood transfusion History of concussion HTN (hypertension) Intestinal malabsorption following gastrectomy Migraines Pre-diabetes Preoperative testing Right rotator cuff tear Sleep apnea Family History Family History Father CHF (congestive heart failure) Mother Breast cancer Brother No problems noted. Brother No problems noted. Sister No problems noted. Sister No problems noted. Son No problems noted. Daughter Mast cell disorder Chriss-Danlos syndrome Chiari malformation Surgical History Surgical History H/O nasal septoplasty History of ankle surgery History of gastric bypass History of repair of hiatal hernia History of sleeve gastrectomy History of tonsillectomy History of total adrenalectomy Hx of colonoscopy Hx of esophagogastroduodenoscopy S/P gastric bypass Status post left foot surgery Social History Social History Are you a primary resident care technician to a significant other at home: No Do you presently have visiting nurse or other home services: No Alcohol intake: former Patient Tobacco Use Status: Former Tobacco user Quit Date: 11/29/2021 Tobacco use type: Cigarette and Cigar Use of substances other than those prescribed or required for medical reasons: No Advance Directives: Yes Advance Directives on File: Yes Advance Directives Date on File: 11/30/21 service: No Meds Allergies Allergy/AdvReac Type Severity Reaction Status Date / Time No Known Allergies Allergy Verified 12/17/21 14:01 Active Medications: Current Medications Pharmacy Consult (Consult Rx Perform Med Rec) 1 each MISCELLANE ONCE PRN PRN Reason: Consult order Home Medications Medication Instructions Recorded Confirmed Last Taken Type albuterol sulfate 90 mcg/actuation 2 puff INHALATION Q4-6H PRN 08/28/20 12/18/21 Unknown History aerosol inhaler (ProAir HFA) colchicine 0.6 mg tablet 0.6 mg PO DAILY PRN tab 08/28/20 12/18/21 Unknown History iron,carbonyl 30 mg-folic acid 800 1 tab PO DAILY 08/28/20 12/18/21 Unknown History bgr-rneerrsa-blyt chewable tablet (Opurity Multivitamin) valsartan 160 mg tablet 160 mg PO DAILY 08/28/20 12/18/21 Unknown History trazodone 50 mg tablet 200 mg PO BEDTIME PRN tab 04/01/21 12/18/21 12/17/21 History diphenhydramine HCl 25 mg capsule 50 mg PO BEDTIME cap 04/30/21 12/18/21 12/17/21 History (Benadryl) allopurinol 300 mg tablet 300 mg PO DAILY 11/23/21 12/18/21 12/17/21 History atorvastatin 40 mg tablet 1 tab PO DAILY 11/23/21 12/18/21 Unknown History buspirone 10 mg tablet 1 tab PO DAILY 11/23/21 12/18/21 Unknown History tamsulosin 0.4 mg capsule 1 cap PO DAILY 11/23/21 12/18/21 Unknown History lorazepam 2 mg tablet 2 mg PO DAILY 12/18/21 12/18/21 12/17/21 History sucralfate 1 gram tablet 1 tab PO TID 12/18/21 12/18/21 12/17/21 History Physical Exam Vital Signs: Vital Signs: Last Vital Signs Temp 99.0 F 12/18/21 17:24 Pulse 63 12/18/21 17:24 Resp 16 12/18/21 17:24 BP 109/56 L 12/18/21 17:24 Pulse Ox 97 12/18/21 17:24 BMI result Body Mass Index 27.8 Const: General: cooperative, healthy appearing and no acute distress Orientation/consciousness: patient oriented x3 HEENT: Head: Yes normal to inspection Ears: hearing grossly normal bilaterally General nose exam: Normal external nose present Face and sinus: Yes normal facial exam Eyes: General: appearance normal, both eyes and all related structures Resp: Effort & Inspection: normal respiratory effort Auscultation: clear to auscultation bilaterally Cardio: Rate: regular rate Rhythm: regular rhythm Heart sounds: S1 normal heart sound present and S2 normal heart sound present GI: Inspection: Yes normal to inspection Palpation (GI): Soft to palpation, Tenderness to palpation present (GI) in the epigastrum and in the RUQ, Guarding due to palpation present (GI) (RUQ>epigastric) and No Rebound tenderness present Auscultation: Hypoactive bowel sounds present Skin: General skin exam: no rashes or lesions noted Neuro: General: patient oriented x3 Extrem: General: No edema Psych: Appearance: grossly normal Mental Status: mental status grossly normal Speech and movement: Normal speech and movement present Affect: normal affect Attitude: cooperative Results Results Abdomen CT scan report/results: report reviewed (Done at [facility] with IV and oral contrast shortly before the right upper quadrant ultrasound. Diffuse ascites and inflammatory stranding greatest surrounding the pancreas, compatible with acute pancreatitis. No appreciable pancreatic necrosis, walled collection or pancreatic duct d) Abdominal ultrasound report/results: report reviewed (Done at [facility], 12/18/21 0400 hrs, heterogeneous appearance of the pancreas and diffuse inflammatory changes and fluid compatible with pancreatitis. Layering small gallstones without evidence of gallbladder wall thickening. There is pericholecystic fluid. Negative sonographic Murp) Assessment and Plan (1) Gall stone pancreatitis: Status: Acute Consult GI for possible lap assisted ERCP once pancreatitis improves. We will keep the patient NPO, Qureshi catheter monitoring I's and O's, telemetry, IV fluids, analgesia, antiemetics, repeat full labs in the morning including CBC, Chem 7, lactic acid, LDH, LFTs, amylase, lipase, ionized calcium. Continue ceftriaxone 1 g IV daily, day 2 and metronidazole 500 mg IV q.8 hours, day 2. Case discussed fully with attending Dr. Buchanan. Quality Stroke Does the patient have a stroke diagnosis?: No VTE Prior VTE?: No VTE Risk Level:: Surgical - moderate VTE Device Contraindication: N/A - Device Ordered VTE Drug Contraindication: Treatment Not Indicated Procedures Date of Service Date of Service: 12/18/21
[2021-12-18 18:09] VITALS: BP 115/56; PULSE 60; RESP 17; TEMP 37.1; O2SAT 98
[2021-12-18] MEDS: Lactated Ringers 1,000 ML 150 ML IVCONT (18:33)
--- NOTE | 2021-12-18 18:38 | PC.NURSE ---
Order entered for rosales catheter. Patient bladder scanned, only 73 mL present. Patient refuses rosales. This RN educated patient to ensure that his voids are being measured and documented. Patient verbalizes understanding.
[2021-12-18 18:47] LABS: COVID-19 Test Negative (Negative); IDNOW Serial# 16C4AD1C
[2021-12-18 18:49] VITALS: BP 118/59; PULSE 61; RESP 18; TEMP 37; O2SAT 97
[2021-12-18 19:11] VITALS: BMI 29.0
[2021-12-18] MEDS: HYDROmorphone HCl 0.5 MG/0.5 ML SYRINGE 0.25 MG IVPUSH (19:20)
[2021-12-18 20:00] VITALS: BP 118/59; PULSE 61; RESP 18; TEMP 37
[2021-12-18] MEDS: LORazepam 2 MG/ML VIAL 0.5 MG IVPUSH (21:14)
[2021-12-18] MEDS: Pantoprazole Sodium 40 MG/10 ML VIAL IVPUSH (21:14)
[2021-12-18] MEDS: Sucralfate Oral Suspension 1 GM/10 ML ORAL.SUSP PO (21:15)
[2021-12-18 23:43] VITALS: BP 114/56; PULSE 56; RESP 18; TEMP 36.1; O2SAT 97
[2021-12-19] MEDS: metroNIDAZOLE/NS 500 MG/100 ML PIGGYBACK 100 MG IV ×4 (00:20→23:58)
--- NOTE | 2021-12-19 00:44 | PC.NURSE ---
Took over care of patient at 23:00. See shift assessment for complete assessment. Was informed in report patient refused rosales catheter. Pt is voiding in bathroom without issues. Pt is high falls risk for a previous fall at home. Pt A&OX3, ambulates with a steady gait. Informed patient of hospitals fall protocol and patient agreed to bed alarm which was turned on but refused bed side commode. Pt states he will ring when he has to use the bathroom and we can go in at that time to turn bed alarm off. Pt denies pain. No N/V. IV Tylenol and IV fluids infusing as ordered. Looking for compression boot machine for patient per orders. Will continue to monitor.
[2021-12-19] MEDS: Lactated Ringers 1,000 ML 150 ML IVCONT (02:06)
[2021-12-19 03:46] VITALS: BP 118/59; PULSE 55; RESP 18; TEMP 36.2; O2SAT 98
[2021-12-19 06:09] LABS: MANUAL DIFF FLAG NO
[2021-12-19 06:15] LABS: Basophils Percent Auto 0.2 % (0-2); Eosinophils Absolute Auto 0.2 X10*3/uL (0.0-0.4); Eosinophils Percent Auto 1.6 % (0-4); Hematocrit 33.1 % (42.0-52.0); Imm Gran Abs Auto 0.11 X10*3/uL (0.00-0.03); Lymphocytes Absolute Auto 0.4 X10*3/uL (1.2-4.9); Lymphocytes Percent Auto 3.9 % (20-40); Mean Corpuscular HGB Conc 33.2 g/dl (31.0-36.0); Mean Corpuscular Hemoglobin 28.7 pg (27.0-33.0); Mean Corpuscular Volume 86.4 fL (80.0-98.0); Mean Platelet Volume 10.9 fL (9.4-12.4); Monocytes Absolute Auto 0.4 X10*3/uL (0.1-1.2); Monocytes Percent Auto 3.7 % (2-11); Neutrophils Absolute Auto 9.8 x10*3/uL (2.0-8.3); Neutrophils Percent Auto 89.6 % (45-73); Platelet Count 141 X10*3/uL (160-400); Red Blood Count 3.83 X10*6/uL (4.60-5.80); Red Cell Distribution Width 14.6 % (11.0-16.0)
[2021-12-19 06:27] LABS: Lactic Acid 0.8 mmol/L (0.5-2.0)
--- NOTE | 2021-12-19 06:36 | PC.NURSE ---
Pt voided 250cc tea colored, foul smelling urine. IV fluids infusing as ordered as well as IV Tylenol. Pt remains NPO. Will pass along in report.
[2021-12-19 06:47] LABS: Alanine Aminotransferase 294 U/L (0-40); Albumin Level 2.9 g/dL (3.5-5.0); Alkaline Phosphatase 86 U/L (39-117); Amylase 276 U/L (28-100); Anion Gap 11 (12-20); Aspartate Amino Transferase 203 U/L (5-37); Bilirubin Direct 0.8 mg/dL (0.0-0.5); Bilirubin Total 2.2 mg/dL (0.0-1.0); Blood Urea Nitrogen 37 mg/dL (9-16); Calcium 7.7 mg/dL (8.4-10.2); Carbon Dioxide 24 mmol/L (22-29); Chloride 108 mmol/L (96-108); Creatinine Clr Calc Pharmacy 92.2; Estimated Glomerular Filt Rate > 60; Glucose Random 77 mg/dL (60-115); Lactate Dehydrogenase 132 U/L (118-273); Lipase 650 U/L (8-78); Potassium 3.2 mmol/L (3.3-5.1); Sodium 140 mmol/L (135-145); Total Protein 4.6 g/dL (6.5-8.0)
[2021-12-19 08:00] VITALS: BP 117/56; PULSE 52; RESP 18; TEMP 36.4; O2SAT 97
[2021-12-19] MEDS: Pantoprazole Sodium 40 MG/10 ML VIAL IVPUSH ×2 (09:40→21:40)
[2021-12-19] MEDS: LORazepam 2 MG/ML VIAL 0.5 MG IVPUSH ×2 (09:41→21:40)
[2021-12-19] MEDS: Sucralfate Oral Suspension 1 GM/10 ML ORAL.SUSP PO ×2 (09:41→21:40)
--- NOTE | 2021-12-19 10:10 | P.PNGS_ITS ---
Subjective Subjective Date of Service: 12/19/21 Patient reports: feels better, pain is less and bowel movement Interval history: 61 yo male admitted with gallstone pancreatitis. Remains on ceftriaxone and metronidazole, day 2, IV analgesia (Offirimev) only one dose of Dilaudid at 1930 hrs yesterday. Continues BID PPI (IV) and Sulcrafate. Remains NPO except for the sulcrafate. Pt reports significant subjective improvement. Less pain. Refused FC yesterday and does report tea colored urine. No noticed hematuria or dark tarry stools. Normal BM this morning. Physical Exam Vital Signs: Vital Signs: Last Vital Signs Temp 97.5 F 12/19/21 08:00 Pulse 52 12/19/21 08:00 Resp 18 12/19/21 08:00 BP 117/56 L 12/19/21 08:00 Pulse Ox 97 12/19/21 08:00 BMI result Body Mass Index 29.0 Const: General: cooperative, comfortable, no acute distress and well developed Nutritional Appearance: well nourished Orientation/consciousness: patient oriented x3 Cardio: Rate: bradycardic Rhythm: regular rhythm Heart sounds: S1 normal heart sound present and S2 normal heart sound present GI: Inspection: Yes normal to inspection Palpation (GI): Soft to palpation, Tenderness to palpation present (GI) (RUQ>epigastric although no guarding today) and no guarding Auscultation: normal bowel sounds Neuro: General: patient oriented x3 Extrem: General: No edema Objective Data Active Medications Hydromorphone HCl (Hydromorphone Hcl 0.5 Mg/0.5 Ml Syringe) 0.25 mg IVPUSH RQ4H PRN; Protocol PRN Reason: Pain, Moderate (Pain Scale 4-6 Last Admin: 12/18/21 19:20 Dose: 0.25 mg Documented by: LARRY Ceftriaxone Sodium 1 gm/ (Sodium Chloride) 50 mls @ 100 mls/hr IV DAILY@1600 JACOB Metronidazole (Flagyl) 500 mg in 100 mls @ 100 mls/hr IV Q8H [facility] Last Infusion: 12/19/21 09:14 Dose: 0 mls/hr Documented by: LUISITO Lactated Ringer's (Lr) 1,000 mls @ 150 mls/hr IVCONT .Q6H40M [facility] Last Admin: 12/19/21 07:47 Dose: Not Given Documented by: LUISITO Non-Admin Reason: IV Running Acetaminophen (Ofirmev) 1,000 mg in 100 mls @ 16.7 mls/hr IV .Q6H [facility] Last Admin: 12/19/21 06:23 Dose: 16.7 mls/hr Documented by: YOUNG Lorazepam (Lorazepam 2 Mg/Ml Vial) 0.5 mg IVPUSH BID [facility] Last Admin: 12/19/21 09:41 Dose: 0.5 mg Documented by: LUISITO Ondansetron HCl (Ondansetron Hcl 4 Mg/2 Ml Vial) 4 mg IVPUSH Q6H PRN PRN Reason: Nausea Pantoprazole Sodium (Pantoprazole Sodium 40 Mg/10 Ml Vial) 40 mg IVPUSH BID [facility] Last Admin: 12/19/21 09:40 Dose: 40 mg Documented by: LUISITO Pharmacy Consult (Consult Rx Perform Med Rec) 1 each MISCELLANE ONCE PRN PRN Reason: Consult order Sucralfate (Sucralfate Oral Suspension 1 Gm/10 Ml Oral.Susp) 1 gm PO BID [facility] Last Admin: 12/19/21 09:41 Dose: 1 gm Documented by: LUISITO Labs CBC & Chem 7: 12/19/21 06:00 12/19/21 06:00 Labs: Laboratory Results - last 24 hr 12/18/21 12/18/21 12/19/21 15:32 18:27 06:00 MCV 86.4 MCH 28.7 MCHC 33.2 RDW 14.6 Plt Count 141 L D MPV 10.9 Immature Gran % (Auto) 1.0 H Neut % (Auto) 89.6 H Lymph % (Auto) 3.9 L [place] % (Auto) 3.7 Eos % (Auto) 1.6 Baso % (Auto) 0.2 Lymph # (Auto) 0.4 L [place] # (Auto) 0.4 Eos # (Auto) 0.2 Baso # (Auto) 0.0 Abs Immat Gran (auto) 0.11 H Absolute Neuts (auto) 9.8 H Absolute Nucleated RBC 0.000 Nucleated RBC % (auto) 0.0 Anion Gap Estim Creat Clear Calc Estimated GFR POC Glucose 86 Random Glucose Lactic Acid Calcium Total Bilirubin Direct Bilirubin AST ALT Alkaline Phosphatase Lactate Dehydrogenase Total Protein Albumin Amylase Lipase COVID-19 (LINDA) Negative COVID-19 Clin Com See Note 12/19/21 12/19/21 06:00 06:00 MCV MCH MCHC RDW Plt Count MPV Immature Gran % (Auto) Neut % (Auto) Lymph % (Auto) [place] % (Auto) Eos % (Auto) Baso % (Auto) Lymph # (Auto) [place] # (Auto) Eos # (Auto) Baso # (Auto) Abs Immat Gran (auto) Absolute Neuts (auto) Absolute Nucleated RBC Nucleated RBC % (auto) Anion Gap 11 L Estim Creat Clear Calc 92.2 Estimated GFR > 60 POC Glucose Random Glucose 77 Lactic Acid 0.8 Calcium 7.7 L D Total Bilirubin 2.2 H Direct Bilirubin 0.8 H AST 203 H ALT 294 H Alkaline Phosphatase 86 D Lactate Dehydrogenase 132 Total Protein 4.6 L Albumin 2.9 L Amylase 276 H Lipase 650 H COVID-19 (LINDA) COVID-19 Clin Com Procedures Date of Service Date of Service: 12/19/21 Progress Note: A&P Assessment and plan (1) Gall stone pancreatitis: Status: Acute Assessment and Plan: Remains NPO, on ceftriaxone 1 gm QD and Metronidazole 500 mg q 8 hrs both IV, day 2. IV BID PPI and sulcrafate. Continue IV analgesia (offirimev) to reduce reliance on narcotics. No NSAIDS given mild throbocytopenia (literature reports <6% associated with CTX) and recent GI bleed. IVF, Repeat all labs in the morning. Overall improvement since yesterday. Plan: Consult to GI for Lap assisted ERCP intraoperatively in conjunction with cholecystectomy. Pt asked that I discuss case with his , Dr Zee Pelaez, [phone], physic harsh IM/Geriatrics/Bariatric Medicine. Spoke with her and updated her on the plan. (2) Hypokalemia: Status: Acute Assessment and Plan: change IVF to LR w 20 mEq KCl 150/hr repeat labs in am, remains on telemetry Plan Case discussed with in depth with Dr Buchanan Time Spent With Patient Time: Total time spent is greater than 50% in coordination of care (as documented) at patient's floor/unit and/or counseling patient: Quality Stroke Does the patient have a stroke diagnosis?: No VTE Prior VTE?: No VTE Risk Level:: Surgical - moderate VTE Device Contraindication: N/A - Device Ordered VTE Drug Contraindication: Treatment Not Indicated
[2021-12-19] MEDS: KCl 20 mEq in 5 % Dex/Lact Rin 20 MEQ/1,000 ML IV.SOLN 150 MEQ IVCONT ×2 (10:57→18:28)
[2021-12-19 11:36] VITALS: BP 105/56; PULSE 58; RESP 18; TEMP 36.8; O2SAT 97
--- NOTE | 2021-12-19 13:24 | MHC.CM.PN ---
EMR REVIEWED, CM MET W/PT WHO REPORTS HE IS WORKING, INDEP W/ALL CARE, DENIES USE OF DME/HOME SERVICES, PT DOES NOT ANTIC ANY NEEDS UPON D/C AT THIS TIME, PT REPORTS HIS WILL TRANSPORT HIM HOME, HCP ON FILE FROM PREVIOUS VISIT, PCP CONFIRMED [facility] AND PT HAS RECEIVED PFIZER X4, PT DOES NOT HAVE [facility] WITH HIM SO UNABLE TO VERIFY DATES. D/C PLAN: HOME NO SERVICES W/FAMILY FOR TRANSPORT
[2021-12-19 15:30] VITALS: BP 117/58; PULSE 53; RESP 18; TEMP 36.8; O2SAT 99
--- NOTE | 2021-12-19 16:17 | PM.EVENT ---
Event Note Date of Service: 12/19/21 Event Note: GI consult dictated mri ordered for further evaluation.
[2021-12-19] MEDS: cefTRIAXone sodium 1 GM in 0.9 % Sodium Chloride 50 ML IV (16:32)
[2021-12-19] MEDS: HYDROmorphone HCl 0.5 MG/0.5 ML SYRINGE 0.25 MG IVPUSH (18:37)
[2021-12-19 19:43] VITALS: BP 124/64; PULSE 55; RESP 18; TEMP 36.6; O2SAT 96
[2021-12-19 23:24] VITALS: BP 119/73; PULSE 57; RESP 18; TEMP 36.1; O2SAT 98
--- NOTE | 2021-12-20 02:48 | CONS_ITS ---
DATE OF SERVICE: 12/19/2021 REFERRING PHYSICIAN: BILL Gonzalez REASON FOR CONSULTATION: Gallstone pancreatitis. HISTORY OF PRESENT ILLNESS: The patient is a pleasant 61-year-old man, who was admitted to the hospital because of gallstone pancreatitis. He developed abdominal pain the day before admission, which progressed and was associated with nausea and vomiting. He presented to a tertiary care trauma center where he was evaluated and transferred to this medical center for definitive care. Laboratory studies indicated elevation of his liver function tests and lipase, and abdominal CT scanning was reportedly obtained as well as an ultrasound. These are not available, but did apparently show gallstones. The patient states he feels quite well now and is hungry. He denies a prior history of gallbladder problems. He has undergone 2 surgeries for weight loss including a sleeve gastrectomy and a Piedad-en-Y gastric bypass. He was recently hospitalized for upper GI bleeding from an anastomotic ulcer. PAST MEDICAL HISTORY: 1. Weight loss surgery as above with upper GI bleeding. 2. Gallstones. 3. Gastroesophageal reflux disease. 4. Arthritis. 5. Depression. 6. Gout. 7. Hypertension. 8. Migraines. 9. Sleep apnea. CURRENT MEDICATIONS: Reviewed in the chart. ALLERGIES: THERE ARE NONE REPORTED. FAMILY HISTORY: Noncontributory. SOCIAL HISTORY: Noncontributory. REVIEW OF SYSTEMS: Negative. PHYSICAL EXAMINATION: GENERAL: Reveals a pleasant male sitting comfortably in a hospital chair. VITAL SIGNS: Stable. SKIN: Anicteric. HEENT: Shows no scleral icterus. NECK: Without lymphadenopathy or thyromegaly. LUNGS: Clear. HEART: Shows a regular rate and rhythm. S1, S2. No murmur. ABDOMEN: Soft without focal masses or tenderness. EXTREMITIES: Without edema. LABORATORY DATA: Reviewed. Urine is in the container next to the patient and is dark. IMPRESSION: Gallstone pancreatitis. RECOMMENDATIONS: I have recommended the patient to have MRI imaging for further evaluation of his common bile duct. If he needs ERCP, this would be complicated by the fact that he has had several surgeries. I discussed this with the patient including risks and benefits of ERCP. Thanks for asking me to see him. We will follow him in the hospital with you. MD ASYA Watts/VANESA / [phone]
[2021-12-20] MEDS: KCl 20 mEq in 5 % Dex/Lact Rin 20 MEQ/1,000 ML IV.SOLN 150 MEQ IVCONT (03:06)
[2021-12-20 03:37] VITALS: BP 132/78; PULSE 51; RESP 16; TEMP 36.4; O2SAT 99
[2021-12-20 06:00] LABS: MANUAL DIFF FLAG NO
[2021-12-20 06:08] LABS: Basophils Percent Auto 0.1 % (0-2); Eosinophils Absolute Auto 0.4 X10*3/uL (0.0-0.4); Eosinophils Percent Auto 5.2 % (0-4); Hematocrit 35.1 % (42.0-52.0); Hemoglobin 11.5 g/dl (14.0-18.0); Imm Gran Abs Auto 0.07 X10*3/uL (0.00-0.03); Lymphocytes Absolute Auto 0.4 X10*3/uL (1.2-4.9); Lymphocytes Percent Auto 5.9 % (20-40); Mean Corpuscular HGB Conc 32.8 g/dl (31.0-36.0); Mean Corpuscular Hemoglobin 28.4 pg (27.0-33.0); Mean Corpuscular Volume 86.7 fL (80.0-98.0); Mean Platelet Volume 11.2 fL (9.4-12.4); Monocytes Absolute Auto 0.2 X10*3/uL (0.1-1.2); Monocytes Percent Auto 2.9 % (2-11); Neutrophils Absolute Auto 6.2 x10*3/uL (2.0-8.3); Neutrophils Percent Auto 84.9 % (45-73); Platelet Count 151 X10*3/uL (160-400); Red Blood Count 4.05 X10*6/uL (4.60-5.80); Red Cell Distribution Width 14.4 % (11.0-16.0); White Blood Count 7.3 X10*3/uL (4.8-10.8)
[2021-12-20 07:07] LABS: Alanine Aminotransferase 172 U/L (0-40); Albumin Level 2.7 g/dL (3.5-5.0); Alkaline Phosphatase 85 U/L (39-117); Amylase 98 U/L (28-100); Anion Gap 9 (12-20); Aspartate Amino Transferase 75 U/L (5-37); Bilirubin Direct 0.8 mg/dL (0.0-0.5); Bilirubin Total 1.6 mg/dL (0.0-1.0); Blood Urea Nitrogen 27 mg/dL (9-16); Carbon Dioxide 24 mmol/L (22-29); Chloride 110 mmol/L (96-108); Creatinine Clr Calc Pharmacy 120.6; Estimated Glomerular Filt Rate > 60; Glucose Random 83 mg/dL (60-115); Lactate Dehydrogenase 119 U/L (118-273); Lipase 372 U/L (8-78); Potassium 3.2 mmol/L (3.3-5.1); Sodium 140 mmol/L (135-145); Total Protein 4.4 g/dL (6.5-8.0)
[2021-12-20 07:38] VITALS: BP 137/75; PULSE 54; RESP 22; TEMP 37.1; O2SAT 98
[2021-12-20] MEDS: Pantoprazole Sodium 40 MG/10 ML VIAL IVPUSH ×2 (09:07→20:41)
[2021-12-20] MEDS: metroNIDAZOLE/NS 500 MG/100 ML PIGGYBACK 100 MG IV ×2 (09:07→16:33)
[2021-12-20] MEDS: LORazepam 2 MG/ML VIAL 0.5 MG IVPUSH ×2 (09:07→20:41)
[2021-12-20] MEDS: Sucralfate Oral Suspension 1 GM/10 ML ORAL.SUSP PO ×2 (09:22→20:41)
--- NOTE | 2021-12-20 10:46 | P.PNGS_ITS ---
Subjective Subjective Date of Service: 12/20/21 Patient reports: feels better Interval history: 61 yo male admitted with gallstone pancreatitis. Over the last 24 hrs he has continued to show improvement subjectively and objectively. GI consult appreciated. Scheduled for MRCP. He will need intraoperative laparoscopic ERCP. Case discussed in depth with pt in addition to planned surgical procedures with Dr Buchanan. Pt continues IV analgesia, PPI, abx, fluids, potassium replacement. Physical Exam Vital Signs: Vital Signs: Last Vital Signs Temp 98.7 F 12/20/21 07:38 Pulse 54 12/20/21 07:38 Resp 22 H 12/20/21 07:38 BP 137/75 12/20/21 07:38 Pulse Ox 98 12/20/21 07:38 BMI result Body Mass Index 29.0 Const: General: cooperative, comfortable and no acute distress Orientation/consciousness: patient oriented x3 GI: Inspection: Yes normal to inspection Palpation (GI): Soft to palpation, nontender and no guarding Neuro: General: patient oriented x3 Objective Data Active Medications Hydromorphone HCl (Hydromorphone Hcl 0.5 Mg/0.5 Ml Syringe) 0.25 mg IVPUSH RQ4H PRN; Protocol PRN Reason: Pain, Moderate (Pain Scale 4-6 Last Admin: 12/19/21 18:37 Dose: 0.25 mg Documented by: LUISITO Ceftriaxone Sodium 1 gm/ (Sodium Chloride) 50 mls @ 100 mls/hr IV DAILY@1600 COUNT INCLUDES THE [facility] Last Infusion: 12/19/21 17:21 Dose: 0 mls/hr Documented by: LUISITO Metronidazole (Flagyl) 500 mg in 100 mls @ 100 mls/hr IV Q8H COUNT INCLUDES THE [facility] Last Infusion: 12/20/21 10:40 Dose: 0 mls/hr Documented by: CLEOPATRA Acetaminophen (Ofirmev) 1,000 mg in 100 mls @ 16.7 mls/hr IV .Q6H COUNT INCLUDES THE [facility] Last Admin: 12/20/21 06:14 Dose: 16.7 mls/hr Documented by: JENN Potassium Cl/Dextrose/Lact Ringer's () 20 meq in 1,000 mls @ 150 mls/hr IVCONT .Q6H40M COUNT INCLUDES THE [facility] Last Admin: 12/20/21 07:19 Dose: Not Given Documented by: COTEMA Non-Admin Reason: IV Running Lorazepam (Lorazepam 2 Mg/Ml Vial) 0.5 mg IVPUSH BID COUNT INCLUDES THE [facility] Last Admin: 12/20/21 09:07 Dose: 0.5 mg Documented by: JOSE C Ondansetron HCl (Ondansetron Hcl 4 Mg/2 Ml Vial) 4 mg IVPUSH Q6H PRN PRN Reason: Nausea Pantoprazole Sodium (Pantoprazole Sodium 40 Mg/10 Ml Vial) 40 mg IVPUSH BID COUNT INCLUDES THE [facility] Last Admin: 12/20/21 09:07 Dose: 40 mg Documented by: JOSE C Pharmacy Consult (Consult Rx Perform Med Rec) 1 each MISCELLANE ONCE PRN PRN Reason: Consult order Sucralfate (Sucralfate Oral Suspension 1 Gm/10 Ml Oral.Susp) 1 gm PO BID COUNT INCLUDES THE [facility] Last Admin: 12/20/21 09:22 Dose: 1 gm Documented by: JOSE C Labs CBC & Chem 7: 12/20/21 05:27 12/20/21 05:27 Labs: Laboratory Results - last 24 hr 12/20/21 12/20/21 05:27 05:27 MCV 86.7 MCH 28.4 MCHC 32.8 RDW 14.4 Plt Count 151 L MPV 11.2 Immature Gran % (Auto) 1.0 H Neut % (Auto) 84.9 H Lymph % (Auto) 5.9 L [place] % (Auto) 2.9 Eos % (Auto) 5.2 H Baso % (Auto) 0.1 Lymph # (Auto) 0.4 L [place] # (Auto) 0.2 Eos # (Auto) 0.4 Baso # (Auto) 0.0 Abs Immat Gran (auto) 0.07 H Absolute Neuts (auto) 6.2 Absolute Nucleated RBC 0.000 Nucleated RBC % (auto) 0.0 Anion Gap 9 L Estim Creat Clear Calc 120.6 Estimated GFR > 60 Random Glucose 83 Calcium 8.0 L Total Bilirubin 1.6 H Direct Bilirubin 0.8 H AST 75 H ALT 172 H Alkaline Phosphatase 85 Lactate Dehydrogenase 119 Total Protein 4.4 L Albumin 2.7 L Amylase 98 D Lipase 372 H Procedures Date of Service Date of Service: 12/20/21 Progress Note: A&P Assessment and plan (1) Gall stone pancreatitis: Status: Acute Assessment and Plan: Continue IV abx, ceftriaxone 1 gm daily/metronidazole, 500 mg iv q 8 hrs day 3, continue iv analgesia for now, consider stopping tommorow if continued asx. Continue NPO. Scheduled for MRCP. Repeat labs in AM Will need lap assisted ERCP and CCY. ERCP needed despite results of MRCP due to possibility of retained stone or movementof stone durg cholecystectomy and given GBP, he would need another operation in the future if he were to need ERCP in the future so to reduce multiple surgeries, will plan on ERCP at the time of cholecystectomy during this hospitalization. Will coordinate with OR and GI. (2) Hypokalemia: Status: Acute Assessment and Plan: change IVF to D5NS w 40 KCl, re-check C7 in am (3) Gram-negative bacteremia: Status: Acute Assessment and Plan: Gr neg rods seen on BCx from initial w/u at [facility], likely from cholangitis. Improving on ceftriaxone. Repeat BCx to assure clearance. Plan Pt seen and examined with Dr Buchanan at bedside. Case discussed in depth Time Spent With Patient Time: Total time spent is greater than 50% in coordination of care (as documented) at patient's floor/unit and/or counseling patient: Quality Stroke Does the patient have a stroke diagnosis?: No VTE Prior VTE?: No VTE Risk Level:: Surgical - moderate VTE Device Contraindication: N/A - Device Ordered VTE Drug Contraindication: Treatment Not Indicated
[2021-12-20 11:39] VITALS: BP 150/69; PULSE 52; RESP 18; TEMP 36.7; O2SAT 98
[2021-12-20] MEDS: KCl 40 mEq in 5% Dex/0.9% Sod 40 MEQ/1,000 ML IV.SOLN 150 MEQ IV (11:48)
[2021-12-20] MEDS: cefTRIAXone sodium 1 GM in 0.9 % Sodium Chloride 50 ML IV (15:51)
[2021-12-20 15:52] VITALS: BP 128/70; PULSE 50; RESP 18; TEMP 36.6; O2SAT 98
[2021-12-20 20:00] VITALS: BP 147/68; PULSE 51; RESP 18; TEMP 36.1; O2SAT 98
[2021-12-20] MEDS: KCl 40 mEq in 5% Dex/0.45% Sod 40 MEQ/1,000 ML IV.SOLN 125 MEQ IVCONT (20:47)
[2021-12-20 23:49] VITALS: BP 132/66; PULSE 64; RESP 16; TEMP 36.6; O2SAT 98
[2021-12-21] VITALS (7 sets, daily range): BP systolic 111–157; BP diastolic 60–82; PULSE 50–81; RESP 16–22; TEMP 35.5–36.5; O2SAT 93–100
[2021-12-21] MEDS: metroNIDAZOLE/NS 500 MG/100 ML PIGGYBACK 100 MG IV ×2 (01:15→07:55)
[2021-12-21] MEDS: KCl 40 mEq in 5% Dex/0.45% Sod 40 MEQ/1,000 ML IV.SOLN 125 MEQ IVCONT (05:36)
[2021-12-21 05:52] LABS: MANUAL DIFF FLAG NO
[2021-12-21 06:01] LABS: Basophils Percent Auto 0.2 % (0-2); Eosinophils Absolute Auto 0.3 X10*3/uL (0.0-0.4); Eosinophils Percent Auto 6.8 % (0-4); Hematocrit 35.5 % (42.0-52.0); Hemoglobin 11.8 g/dl (14.0-18.0); Imm Gran Abs Auto 0.01 X10*3/uL (0.00-0.03); Imm Gran Pct Auto 0.2 % (0.0-0.4); Lymphocytes Absolute Auto 0.7 X10*3/uL (1.2-4.9); Lymphocytes Percent Auto 14.5 % (20-40); Mean Corpuscular HGB Conc 33.2 g/dl (31.0-36.0); Mean Corpuscular Hemoglobin 28.7 pg (27.0-33.0); Mean Corpuscular Volume 86.4 fL (80.0-98.0); Mean Platelet Volume 10.8 fL (9.4-12.4); Monocytes Absolute Auto 0.2 X10*3/uL (0.1-1.2); Monocytes Percent Auto 4.8 % (2-11); Neutrophils Absolute Auto 3.6 x10*3/uL (2.0-8.3); Neutrophils Percent Auto 73.5 % (45-73); Platelet Count 152 X10*3/uL (160-400); Red Blood Count 4.11 X10*6/uL (4.60-5.80); Red Cell Distribution Width 14.3 % (11.0-16.0); White Blood Count 4.8 X10*3/uL (4.8-10.8)
[2021-12-21 06:14] LABS: Alanine Aminotransferase 122 U/L (0-40); Albumin Level 2.9 g/dL (3.5-5.0); Alkaline Phosphatase 108 U/L (39-117); Amylase 72 U/L (28-100); Anion Gap 10 (12-20); Aspartate Amino Transferase 45 U/L (5-37); Bilirubin Direct 0.7 mg/dL (0.0-0.5); Bilirubin Total 1.3 mg/dL (0.0-1.0); Blood Urea Nitrogen 17 mg/dL (9-16); Calcium 8.3 mg/dL (8.4-10.2); Carbon Dioxide 23 mmol/L (22-29); Chloride 111 mmol/L (96-108); Creatinine Clr Calc Pharmacy 122.4; Estimated Glomerular Filt Rate > 60; Glucose Random 79 mg/dL (60-115); Lipase 342 U/L (8-78); Potassium 3.7 mmol/L (3.3-5.1); Sodium 140 mmol/L (135-145); Total Protein 4.6 g/dL (6.5-8.0)
--- NOTE | 2021-12-21 07:37 | PM.PNGS ---
Subjective Subjective Date of Service: 12/21/21 Interval history: 61 yo man HD #3 admitted as a transfer from [facility] ED for gallstone pancreatitis s/p GBP by Dr Frances. Pt is day # 2 Ceftriaxone and Metronidazole blood cultures x 2 are pending.. Pt states his RUQ pain is still present but has improved since admission. He has no nausea or emesis or other somatic complaints. Pt states he understands that he needs a combined procedure of lap kary and lap assisted ERCP and all of his questions have been answered. Physical Exam Vital Signs: Vital Signs: Last Vital Signs Temp 97.6 F 12/21/21 07:26 Pulse 57 12/21/21 07:26 Resp 22 H 12/21/21 07:26 BP 151/82 H 12/21/21 07:26 Pulse Ox 99 12/21/21 07:26 BMI result Body Mass Index 29.0 Const: Other: Pt sleeping comfortably with CPAP mask in place General: cooperative, healthy appearing, comfortable, well developed and alert Nutritional Appearance: overweight GI: Inspection: Yes normal to inspection and No visible herniation Palpation (GI): Soft to palpation, Tenderness to palpation present (GI) (RUQ and R flank), no guarding, not rigid, no hernias, no masses and No Rebound tenderness present Extrem: Other: compression stockings in place bilaterally Objective Data Active Medications Hydromorphone HCl (Hydromorphone Hcl 0.5 Mg/0.5 Ml Syringe) 0.25 mg IVPUSH RQ4H PRN; Protocol PRN Reason: Pain, Moderate (Pain Scale 4-6 Last Admin: 12/19/21 18:37 Dose: 0.25 mg Documented by: LUISITO Ceftriaxone Sodium 1 gm/ (Sodium Chloride) 50 mls @ 100 mls/hr IV DAILY@1600 [facility] Last Infusion: 12/20/21 16:27 Dose: 0 mls/hr Documented by: JOSE C Metronidazole (Flagyl) 500 mg in 100 mls @ 100 mls/hr IV Q8H [facility] Last Infusion: 12/21/21 03:39 Dose: 0 mls/hr Documented by: KEN Acetaminophen (Ofirmev) 1,000 mg in 100 mls @ 16.7 mls/hr IV .Q6H [facility] Last Admin: 12/21/21 05:36 Dose: 16.7 mls/hr Documented by: KEN Potassium Chloride/Dextrose/Sod Cl () 40 meq in 1,000 mls @ 125 mls/hr IVCONT .Q8H [facility] Last Admin: 12/21/21 05:36 Dose: 125 mls/hr Documented by: KEN Lorazepam (Lorazepam 2 Mg/Ml Vial) 0.5 mg IVPUSH BID [facility] Last Admin: 12/20/21 20:41 Dose: 0.5 mg Documented by: KEN Ondansetron HCl (Ondansetron Hcl 4 Mg/2 Ml Vial) 4 mg IVPUSH Q6H PRN PRN Reason: Nausea Pantoprazole Sodium (Pantoprazole Sodium 40 Mg/10 Ml Vial) 40 mg IVPUSH BID [facility] Last Admin: 12/20/21 20:41 Dose: 40 mg Documented by: KEN Pharmacy Consult (Consult Rx Perform Med Rec) 1 each MISCELLANE ONCE PRN PRN Reason: Consult order Sucralfate (Sucralfate Oral Suspension 1 Gm/10 Ml Oral.Susp) 1 gm PO BID [facility] Last Admin: 12/20/21 20:41 Dose: 1 gm Documented by: KEN Labs CBC & Chem 7: 12/21/21 05:36 12/21/21 05:36 Labs: Laboratory Results - last 24 hr 12/21/21 12/21/21 05:36 05:36 MCV 86.4 MCH 28.7 MCHC 33.2 RDW 14.3 Plt Count 152 L MPV 10.8 Immature Gran % (Auto) 0.2 Neut % (Auto) 73.5 H Lymph % (Auto) 14.5 L [place] % (Auto) 4.8 Eos % (Auto) 6.8 H Baso % (Auto) 0.2 Lymph # (Auto) 0.7 L [place] # (Auto) 0.2 Eos # (Auto) 0.3 Baso # (Auto) 0.0 Abs Immat Gran (auto) 0.01 Absolute Neuts (auto) 3.6 Absolute Nucleated RBC 0.000 Nucleated RBC % (auto) 0.0 Anion Gap 10 L Estim Creat Clear Calc 122.4 Estimated GFR > 60 Random Glucose 79 Calcium 8.3 L Total Bilirubin 1.3 H Direct Bilirubin 0.7 H AST 45 H ALT 122 H Alkaline Phosphatase 108 D Total Protein 4.6 L Albumin 2.9 L Amylase 72 D Lipase 342 H Imaging MRI - abdomen: Radiologist's impression: Impressions Cholangiopancreatography MRI 12/20/21 12:45 IMPRESSION: Limited exam. Upper normal-size gallbladder and small gallstones. Question mild gallbladder wall thickening or edema. The gallbladder wall measures up to 4 mm. Nondiagnostic MRCP exam. No intra or extrahepatic biliary duct dilatation. Normal-appearing pancreas. Microbiology Microbiology Results: blood cultures x 2 pending Procedures Date of Service Date of Service: 12/21/21 Progress Note: A&P Assessment and plan (1) Gall stone pancreatitis: Status: Acute Assessment and Plan: HD # 3, patient is improving. His pain has improved and liver enzymes are decreasing as well as lipase, amylase was always normal. MRCP show small stones in mildy edematous gall bladder. No intra or extrahepatic biliary dilitation. Patient to remain NPO, continue IV antibiotics, pantoprazole and carafate. Blood cultures pending. Treatment plan per Dr Buchanan would be lap kary and lap assisted ERCP. Patient will discuss this with his this am, he has concerns regarding possible treatment delay since hospitalized. He states he was originally told his procedure would not be able to be done until December 24. We discussed how it is often preferred to wait until a patient is recovering from the acute phase of infection before having surgery, as this will often result in better patietn outcomes. Addendum: Lap kary and lap assistedERCP with Dr Metzger are on the schedule for add on for tomorrow. Patient is aware. (2) S/P gastric bypass: Status: Acute Assessment and Plan: as ablove (3) Hypokalemia: Status: Acute Assessment and Plan: Resolved with IV potassium replacement, IVF changed to maintenance dosing this am. (4) Gram-negative bacteremia: Status: Acute Assessment and Plan: Blood cultures from [facility] finalized with sesitivities, + E coli- will change to Levofloxacin for better coverage. Time Spent With Patient Time: Total time spent is greater than 50% in coordination of care (as documented) at patient's floor/unit and/or counseling patient: Quality Stroke Does the patient have a stroke diagnosis?: No VTE Prior VTE?: No VTE Risk Level:: Surgical - moderate VTE Device Contraindication: N/A - Device Ordered VTE Drug Contraindication: Treatment Not Indicated
[2021-12-21] MEDS: LORazepam 2 MG/ML VIAL 0.5 MG IVPUSH (07:55)
[2021-12-21] MEDS: Sucralfate Oral Suspension 1 GM/10 ML ORAL.SUSP PO ×2 (07:55→22:51)
[2021-12-21] MEDS: KCl 20 mEq in 5% Dex/0.45% Sod 20 MEQ/1,000 ML IV.SOLN 125 MEQ IVCONT ×3 (07:55→23:33)
[2021-12-21] MEDS: Pantoprazole Sodium 40 MG/10 ML VIAL IVPUSH ×2 (07:56→22:51)
--- NOTE | 2021-12-21 16:41 | PM.GIPN ---
Subjective Subjective Date of Service: 12/21/21 Interval History: pain is improved Critical Care Time (minutes): 0 Physical Exam Vital Signs: Vital Signs: Last Vital Signs Temp 96 F L 12/21/21 15:43 Pulse 58 12/21/21 15:43 Resp 18 12/21/21 15:43 BP 111/60 12/21/21 15:43 Pulse Ox 93 12/21/21 15:43 BMI result Body Mass Index 29.0 GI: Other: abdomen is soft and nontender Objective Data Labs CBC & Chem 7: 12/21/21 05:36 12/21/21 05:36 Labs: Laboratory Results - last 24 hr 12/21/21 12/21/21 05:36 05:36 WBC 4.8 RBC 4.11 L Hgb 11.8 L Hct 35.5 L MCV 86.4 MCH 28.7 MCHC 33.2 RDW 14.3 Plt Count 152 L MPV 10.8 Immature Gran % (Auto) 0.2 Neut % (Auto) 73.5 H Lymph % (Auto) 14.5 L [place] % (Auto) 4.8 Eos % (Auto) 6.8 H Baso % (Auto) 0.2 Lymph # (Auto) 0.7 L [place] # (Auto) 0.2 Eos # (Auto) 0.3 Baso # (Auto) 0.0 Abs Immat Gran (auto) 0.01 Absolute Neuts (auto) 3.6 Absolute Nucleated RBC 0.000 Nucleated RBC % (auto) 0.0 Sodium 140 Potassium 3.7 Chloride 111 H Carbon Dioxide 23 Anion Gap 10 L BUN 17 H Creatinine 0.64 Estim Creat Clear Calc 122.4 Estimated GFR > 60 Random Glucose 79 Calcium 8.3 L Total Bilirubin 1.3 H Direct Bilirubin 0.7 H AST 45 H ALT 122 H Alkaline Phosphatase 108 D Total Protein 4.6 L Albumin 2.9 L Amylase 72 D Lipase 342 H Microbiology Microbiology Results: Microbiology 12/20/21 12:08 Blood - Venous Blood Culture - Preliminary No growth after 24 hours. 12/20/21 12:08 Blood - Venous Blood Culture - Preliminary No growth after 24 hours. Procedures Date of Service Date of Service: 12/21/21 Progress Note: A&P Assessment and plan (1) Gall stone pancreatitis: Status: Acute Assessment and Plan: I discussed with patient that MRI was nondiagnostic and that ERCP with sphincterotomy is the best option to be done at the time of ccy to prevent recurrent pancreatitis from small cbd stones. Time Spent With Patient Time: Total time spent is greater than 50% in coordination of care (as documented) at patient's floor/unit and/or counseling patient: Quality Stroke Does the patient have a stroke diagnosis?: No VTE Prior VTE?: No VTE Risk Level:: Surgical - moderate VTE Device Contraindication: N/A - Device Ordered VTE Drug Contraindication: Treatment Not Indicated
[2021-12-21] MEDS: HYDROmorphone HCl 0.5 MG/0.5 ML SYRINGE 0.25 MG IVPUSH (16:43)
[2021-12-21] MEDS: levoFLOXacin/D5W 500 MG/100 ML PIGGYBACK 100 MG IV (16:53)
[2021-12-21] MEDS: LORazepam 2 MG/ML VIAL 1 MG IVPUSH ×2 (16:53→23:34)
[2021-12-21] MEDS: diphenhydrAMINE HCL 50 MG/ML VIAL 25 MG IVPUSH (23:34)
--- NOTE | 2021-12-21 23:49 | PM.PNGS ---
Subjective Subjective Date of Service: 12/22/21 Interval history: Feels better. Minimal abdominal pain Physical Exam Vital Signs: Vital Signs: Last Vital Signs Temp 96.9 F 12/21/21 19:45 Pulse 61 12/21/21 19:45 Resp 18 12/21/21 19:45 BP 142/74 H 12/21/21 19:45 Pulse Ox 98 12/21/21 19:45 BMI result Body Mass Index 29.0 GI: Inspection: Yes normal to inspection and Yes incision (well healed) Palpation (GI): Tenderness to palpation present (GI) (mild mid-epigastric tenderness) Extrem: Right lower extremity: normal to inspection Left lower extremity: normal to inspection Objective Data Active Medications Diphenhydramine HCl (Diphenhydramine Hcl 50 Mg/Ml Vial) 25 mg IVPUSH ONCE PRN PRN Reason: Insomnia Last Admin: 12/21/21 23:34 Dose: 25 mg Documented by: KEN Diphenhydramine HCl (Diphenhydramine Hcl 50 Mg/Ml Vial) 25 mg IVPUSH BEDTIME PRN PRN Reason: Insomnia Hydromorphone HCl (Hydromorphone Hcl 0.5 Mg/0.5 Ml Syringe) 0.25 mg IVPUSH RQ4H PRN; Protocol PRN Reason: Pain, Moderate (Pain Scale 4-6 Last Admin: 12/21/21 16:43 Dose: 0.25 mg Documented by: COTEMA Acetaminophen (Ofirmev) 1,000 mg in 100 mls @ 16.7 mls/hr IV .Q6H [facility] Last Admin: 12/21/21 23:34 Dose: 16.7 mls/hr Documented by: KEN Potassium Chloride/Dextrose/Sod Cl () 20 meq in 1,000 mls @ 125 mls/hr IVCONT .Q8H [facility] Last Admin: 12/21/21 23:33 Dose: 125 mls/hr Documented by: KEN Levofloxacin (Levaquin) 500 mg in 100 mls @ 100 mls/hr IV Q24H [facility] Last Infusion: 12/21/21 18:22 Dose: 0 mls/hr Documented by: COTEMA Lorazepam (Lorazepam 2 Mg/Ml Vial) 1 mg IVPUSH Q4H PRN PRN Reason: Insomnia Last Admin: 12/21/21 23:34 Dose: 1 mg Documented by: KEN Ondansetron HCl (Ondansetron Hcl 4 Mg/2 Ml Vial) 4 mg IVPUSH Q6H PRN PRN Reason: Nausea Pantoprazole Sodium (Pantoprazole Sodium 40 Mg/10 Ml Vial) 40 mg IVPUSH BID [facility] Last Admin: 12/21/21 22:51 Dose: 40 mg Documented by: KEN Pharmacy Consult (Consult Rx Perform Med Rec) 1 each MISCELLANE ONCE PRN PRN Reason: Consult order Sucralfate (Sucralfate Oral Suspension 1 Gm/10 Ml Oral.Susp) 1 gm PO BID [facility] Last Admin: 12/21/21 22:51 Dose: 1 gm Documented by: KEN Labs CBC & Chem 7: 12/22/21 05:55 12/22/21 05:55 Labs: Laboratory Results - last 24 hr 12/21/21 12/21/21 12/21/21 05:36 05:36 18:22 MCV 86.4 MCH 28.7 MCHC 33.2 RDW 14.3 Plt Count 152 L MPV 10.8 Immature Gran % (Auto) 0.2 Neut % (Auto) 73.5 H Lymph % (Auto) 14.5 L [place] % (Auto) 4.8 Eos % (Auto) 6.8 H Baso % (Auto) 0.2 Lymph # (Auto) 0.7 L [place] # (Auto) 0.2 Eos # (Auto) 0.3 Baso # (Auto) 0.0 Abs Immat Gran (auto) 0.01 Absolute Neuts (auto) 3.6 Absolute Nucleated RBC 0.000 Nucleated RBC % (auto) 0.0 Anion Gap 10 L Estim Creat Clear Calc 122.4 Estimated GFR > 60 Random Glucose 79 Calcium 8.3 L Total Bilirubin 1.3 H Direct Bilirubin 0.7 H AST 45 H ALT 122 H Alkaline Phosphatase 108 D Total Protein 4.6 L Albumin 2.9 L Amylase 72 D Lipase 342 H Blood Type A Positive Antibody Screen NEGATIVE Microbiology Microbiology Results: Microbiology 12/20/21 12:08 Blood Culture - Preliminary Blood - Venous No growth after 24 hours. 12/20/21 12:08 Blood Culture - Preliminary Blood - Venous No growth after 24 hours. Procedures Date of Service Date of Service: 12/22/21 Progress Note: A&P Assessment and plan (1) Gall stone pancreatitis: Status: Acute Assessment and Plan: Extensive discussion with patient and his in the presence of Dr. Sifuentes. The surgical plan was discussed which includes an upper endoscopy to assess the status of the anastomotic ulcer, a laparoscopic cholecystectomy and intraoperative gastroscopy to provide access to an intraoperative ERCP. Risks and complications were discussed with the patient including common bile duct injury, bile leak, bleeding, sepsis, gastric leak, recurrent pancreatitis, jaundice, bowel obstructions, VTE, or inability to perform the ERCP. The patient and are in agreement with the plan. (2) Cholangitis due to bile duct calculus with obstruction: Status: Acute (3) S/P gastric bypass: Status: Acute (4) GI bleed: Status: Acute (5) Anastomotic ulcer: Status: Acute Time Spent With Patient Time: Total time spent is greater than 50% in coordination of care (as documented) at patient's floor/unit and/or counseling patient: Quality Stroke Does the patient have a stroke diagnosis?: No VTE Prior VTE?: No VTE Risk Level:: Surgical - moderate VTE Device Contraindication: N/A - Device Ordered VTE Drug Contraindication: Treatment Not Indicated
[2021-12-22 00:03] VITALS: BP 137/70; PULSE 52; RESP 14; TEMP 36.3; O2SAT 97
[2021-12-22 06:42] LABS: MANUAL DIFF FLAG NO
[2021-12-22 06:52] LABS: Basophils Percent Auto 0.2 % (0-2); Eosinophils Absolute Auto 0.4 X10*3/uL (0.0-0.4); Eosinophils Percent Auto 6.1 % (0-4); Hematocrit 35.5 % (42.0-52.0); Hemoglobin 11.6 g/dl (14.0-18.0); Imm Gran Abs Auto 0.02 X10*3/uL (0.00-0.03); Imm Gran Pct Auto 0.3 % (0.0-0.4); Lymphocytes Percent Auto 17.7 % (20-40); Mean Corpuscular HGB Conc 32.7 g/dl (31.0-36.0); Mean Corpuscular Hemoglobin 27.8 pg (27.0-33.0); Mean Corpuscular Volume 84.9 fL (80.0-98.0); Mean Platelet Volume 10.4 fL (9.4-12.4); Monocytes Absolute Auto 0.3 X10*3/uL (0.1-1.2); Monocytes Percent Auto 5.8 % (2-11); Neutrophils Percent Auto 69.9 % (45-73); Platelet Count 156 X10*3/uL (160-400); Red Blood Count 4.18 X10*6/uL (4.60-5.80); White Blood Count 5.7 X10*3/uL (4.8-10.8)
[2021-12-22 07:08] LABS: Alanine Aminotransferase 94 U/L (0-40); Albumin Level 2.7 g/dL (3.5-5.0); Alkaline Phosphatase 114 U/L (39-117); Anion Gap 8 (12-20); Aspartate Amino Transferase 47 U/L (5-37); Bilirubin Total 1.1 mg/dL (0.0-1.0); Blood Urea Nitrogen 9 mg/dL (9-16); Carbon Dioxide 23 mmol/L (22-29); Chloride 110 mmol/L (96-108); Creatinine Clr Calc Pharmacy 137.5; Estimated Glomerular Filt Rate > 60; Glucose Random 65 mg/dL (60-115); Potassium 3.4 mmol/L (3.3-5.1); Sodium 138 mmol/L (135-145); Total Protein 4.3 g/dL (6.5-8.0)
[2021-12-22] MEDS: KCl 20 mEq in 5% Dex/0.45% Sod 20 MEQ/1,000 ML IV.SOLN 125 MEQ IVCONT ×2 (07:19→14:44)
[2021-12-22 08:00] VITALS: BP 185/84; PULSE 50; RESP 18; TEMP 36.6; O2SAT 98
[2021-12-22] MEDS: Pantoprazole Sodium 40 MG/10 ML VIAL IVPUSH (08:24)
[2021-12-22] MEDS: LORazepam 2 MG/ML VIAL 1 MG IVPUSH ×3 (08:24→17:28)
[2021-12-22 11:50] VITALS: BP 152/79; PULSE 57; RESP 20; TEMP 34.6; O2SAT 95
[2021-12-22 12:21] VITALS: RESP 18
[2021-12-22] MEDS: HYDROmorphone HCl 0.5 MG/0.5 ML SYRINGE 0.25 MG IVPUSH ×2 (12:21→17:29)
--- NOTE | 2021-12-22 14:59 | PM.PNGS ---
Subjective Subjective Date of Service: 12/22/21 Interval history: Patient was scheduled for lap chlole/lap assisted ERCP today. His surgeon has become emergently unavailable. After discussion with Dr Jono Walsh and our general surgeons, the decision was made with the patient and his to transfer the patient to [facility] - Dr Chay Figueredo has accepted the transfer. Physical Exam Vital Signs: Vital Signs: Last Vital Signs Temp 94.3 F L 12/22/21 11:50 Pulse 57 12/22/21 11:50 Resp 18 12/22/21 12:21 BP 152/79 H 12/22/21 11:50 Pulse Ox 95 12/22/21 11:50 BMI result Body Mass Index 29.0 Objective Data Active Medications Diphenhydramine HCl (Diphenhydramine Hcl 50 Mg/Ml Vial) 25 mg IVPUSH ONCE PRN PRN Reason: Insomnia Last Admin: 12/21/21 23:34 Dose: 25 mg Documented by: KEN Diphenhydramine HCl (Diphenhydramine Hcl 50 Mg/Ml Vial) 25 mg IVPUSH BEDTIME PRN PRN Reason: Insomnia Hydromorphone HCl (Hydromorphone Hcl 0.5 Mg/0.5 Ml Syringe) 0.25 mg IVPUSH RQ4H PRN; Protocol PRN Reason: Pain, Moderate (Pain Scale 4-6 Last Admin: 12/22/21 12:21 Dose: 0.25 mg Documented by: ANGELIKA.COTEMA Acetaminophen (Ofirmev) 1,000 mg in 100 mls @ 16.7 mls/hr IV .Q6H [facility] Last Admin: 12/22/21 12:17 Dose: 16.7 mls/hr Documented by: ANGELIKA.COTEMA Potassium Chloride/Dextrose/Sod Cl () 20 meq in 1,000 mls @ 125 mls/hr IVCONT .Q8H [facility] Last Admin: 12/22/21 14:44 Dose: 125 mls/hr Documented by: ANGELIKA.COTEMA Levofloxacin (Levaquin) 500 mg in 100 mls @ 100 mls/hr IV Q24H [facility] Last Infusion: 12/21/21 18:22 Dose: 0 mls/hr Documented by: COTEMA Lorazepam (Lorazepam 2 Mg/Ml Vial) 1 mg IVPUSH Q4H PRN PRN Reason: Insomnia Last Admin: 12/22/21 13:05 Dose: 1 mg Documented by: CLEOPATRA Ondansetron HCl (Ondansetron Hcl 4 Mg/2 Ml Vial) 4 mg IVPUSH Q6H PRN PRN Reason: Nausea Pantoprazole Sodium (Pantoprazole Sodium 40 Mg/10 Ml Vial) 40 mg IVPUSH BID [facility] Last Admin: 12/22/21 08:24 Dose: 40 mg Documented by: CLEOPATRA Pharmacy Consult (Consult Rx Perform Med Rec) 1 each MISCELLANE ONCE PRN PRN Reason: Consult order Sucralfate (Sucralfate Oral Suspension 1 Gm/10 Ml Oral.Susp) 1 gm PO BID [facility] Last Admin: 12/22/21 08:17 Dose: Not Given Documented by: CLEOPATRA Non-Admin Reason: Physician Held Med Labs CBC & Chem 7: 12/22/21 05:55 12/22/21 05:55 Labs: Laboratory Results - last 24 hr 12/21/21 12/22/21 12/22/21 18:22 05:55 05:55 MCV 84.9 MCH 27.8 MCHC 32.7 RDW 14.0 Plt Count 156 L MPV 10.4 Immature Gran % (Auto) 0.3 Neut % (Auto) 69.9 Lymph % (Auto) 17.7 L [place] % (Auto) 5.8 Eos % (Auto) 6.1 H Baso % (Auto) 0.2 Lymph # (Auto) 1.0 L [place] # (Auto) 0.3 Eos # (Auto) 0.4 Baso # (Auto) 0.0 Abs Immat Gran (auto) 0.02 Absolute Neuts (auto) 4.0 Absolute Nucleated RBC 0.000 Nucleated RBC % (auto) 0.0 Anion Gap 8 L Estim Creat Clear Calc 137.5 Estimated GFR > 60 Random Glucose 65 Calcium 8.0 L Total Bilirubin 1.1 H AST 47 H ALT 94 H Alkaline Phosphatase 114 Total Protein 4.3 L Albumin 2.7 L Blood Type A Positive Antibody Screen NEGATIVE Microbiology Microbiology Results: Microbiology 12/20/21 12:08 Blood Culture - Preliminary Blood - Venous No growth after 48 hours. 12/20/21 12:08 Blood Culture - Preliminary Blood - Venous No growth after 48 hours. Procedures Date of Service Date of Service: 12/22/21 Progress Note: A&P Time Spent With Patient Time: Total time spent is greater than 50% in coordination of care (as documented) at patient's floor/unit and/or counseling patient: Quality Stroke Does the patient have a stroke diagnosis?: No VTE Prior VTE?: No VTE Risk Level:: Surgical - moderate VTE Device Contraindication: N/A - Device Ordered VTE Drug Contraindication: Treatment Not Indicated
--- NOTE | 2021-12-22 15:24 | P.DS_ITS ---
DS: Providers Provider Date of Service: 12/22/21 Date of admission: 12/18/21 17:42 Primary care physician: Chay Acevedo MD Consults: 12/18/21 15:50 Consult to Gastroenterology Stat Consulting Provider: Nathan Metzger Reason for consultation: Right upper quadrant abdominal pain ? gallstone pancreatitis Has provider been notified: No 12/18/21 17:56 Consult to Gastroenterology Routine Consulting Provider: Vazquez Sparks Reason for consultation: possible lap assisted ERCP in setting of GS pancreatitis DS: Diagnosis Discharge Diagnosis (1) Gall stone pancreatitis: Status: Acute (2) Cholangitis due to bile duct calculus with obstruction: Status: Acute (3) S/P gastric bypass: Status: Acute (4) GI bleed: Status: Acute (5) Anastomotic ulcer: Status: Acute DS: Summary Hospital Course Hospital Course: 61 yo man s/p conversion of his previous LSG (done at [facility]) to RNYGBP by Dr Antoinette Frances at [facility] February 2021. Presented to [facility] ED on 12/18 with RUQ pain, patient was diagnosed with gallstone pancreatitis and by his request was transferred to [facility] for treatment. At [facility] he had CT and MRCP done which confirmed the diagnosis and was scheduled for lap kary with lap assisted ERCP for today, December 22. His surgeon became emergently unavailable to perform the procedure and per patient request he is being transferred back to [facility] under Dr Chay Figueredo's care. Blood cultures from [facility] ED were positive for E Coli bacteremia and patient was initially treated with Metronidazole and Ceftriazone and then switched to Levofloxacin on 12/21/21 when sensitivites were resulted. Patient is presentely stabel, with normal WBC, afebrile x >72 hours and improving LFTS's and lipase. Amylase was always normal. Time Spent with Patient Time attestation: Total time spent providing and/or coordinating discharge services: Discharge coordination time: Greater than 30 minutes Quality: Safe Use of Opioids Does Pt have an Active Cancer Diagnosis on the Problem List?: No Quality: Stroke Does the patient have a stroke diagnosis?: No Physical Exam Vital Signs: Vital Signs: Last Vital Signs Temp 94.3 F L 12/22/21 11:50 Pulse 57 12/22/21 11:50 Resp 18 12/22/21 12:21 BP 152/79 H 12/22/21 11:50 Pulse Ox 95 12/22/21 11:50 BMI result Body Mass Index 29.0 DS: Data Data Completed and Pending Completed studies during hospitalization [Text1]: Procedures Bypass Stomach to Jejunum, Percutaneous Endoscopic Approach (03/17/21) Control Bleeding in Gastrointestinal Tract, Via Natural or Artificial Opening Endoscopic (11/27/21) Destruction of Jejunum, Via Natural or Artificial Opening Endoscopic (11/27/21) Introduction of Destructive Agent into Lower GI, Via Natural or Artificial Opening Endoscopic (11/27/21) Introduction of Mineral-based Topical Hemostatic Agent into Upper GI, Via Natural or Artificial Opening Endoscopic, [employer] 6 (11/27/21) Repair Diaphragm, Percutaneous Endoscopic Approach (03/17/21) Transfusion of Nonautologous Platelets into Peripheral Vein, Percutaneous Approach (11/27/21) Transfusion of Nonautologous Red Blood Cells into Peripheral Vein, Percutaneous Approach (11/27/21) Labs on day of discharge: Laboratory Results - last 24 hr 12/21/21 12/22/21 12/22/21 18:22 05:55 05:55 WBC 5.7 RBC 4.18 L Hgb 11.6 L Hct 35.5 L MCV 84.9 MCH 27.8 MCHC 32.7 RDW 14.0 Plt Count 156 L MPV 10.4 Immature Gran % (Auto) 0.3 Neut % (Auto) 69.9 Lymph % (Auto) 17.7 L [place] % (Auto) 5.8 Eos % (Auto) 6.1 H Baso % (Auto) 0.2 Lymph # (Auto) 1.0 L [place] # (Auto) 0.3 Eos # (Auto) 0.4 Baso # (Auto) 0.0 Abs Immat Gran (auto) 0.02 Absolute Neuts (auto) 4.0 Absolute Nucleated RBC 0.000 Nucleated RBC % (auto) 0.0 Sodium 138 Potassium 3.4 Chloride 110 H Carbon Dioxide 23 Anion Gap 8 L BUN 9 Creatinine 0.57 Estim Creat Clear Calc 137.5 Estimated GFR > 60 Random Glucose 65 Calcium 8.0 L Total Bilirubin 1.1 H AST 47 H ALT 94 H Alkaline Phosphatase 114 Total Protein 4.3 L Albumin 2.7 L Blood Type A Positive Antibody Screen NEGATIVE Preliminary micro results at discharge 12/20/21 12:08 Blood Culture - Preliminary Blood - Venous No growth after 48 hours. 12/20/21 12:08 Blood Culture - Preliminary Blood - Venous No growth after 48 hours. Discharge Plan Discharge Anticipated Discharge Date/Time: 12/22/21 16:04 Patient Disposition: Xfer Acute Care Hospital Discharge Diagnosis: Gallstone pancreatitis, s/p RNYGBP Referrals: Chay Acevedo MD [Primary Care Provider] - 1 Week Discharge Medications: Continued atorvastatin 40 mg tablet 1 tab PO DAILY 0RF tamsulosin 0.4 mg capsule 1 cap PO DAILY 0RF Hold Instructions: Until follow up with pcp. buspirone 10 mg tablet 1 tab PO DAILY 0RF allopurinol 300 mg tablet 300 mg PO DAILY 0RF omeprazole 40 mg Capsule,Delayed Release(Dr/Ec) 40 mg PO BID@0630,1630 Qty: 60 0RF sucralfate 1 gram tablet 1 tab PO TID 0RF lorazepam 2 mg Tablet 2 mg PO DAILY 0RF trazodone 50 mg tablet 200 mg PO BEDTIME PRN (Reason: Sleep) 0RF valsartan 160 mg tablet 160 mg PO DAILY 0RF Hold Instructions: until seen by pcp or blood pressure stays cnsistently above 140 mmhg. Opurity Multivitamin 30 mg iron- 800 mcg tablet,chewable 1 tab PO DAILY 0RF colchicine 0.6 mg tablet 0.6 mg PO DAILY PRN (Reason: gout) 0RF albuterol sulfate [ProAir HFA] 90 mcg/actuation HFA aerosol inhaler 2 puff inhalation Q4-6H PRN (Reason: Wheezing) 0RF diphenhydramine HCl [Benadryl] 25 mg capsule 50 mg PO BEDTIME 0RF Discharge Orders: Discharge Order (Routine); Ordered 12/22/21 Ordered By: Autumn Boykin Diet: other Activity on Discharge: No heavy lifting Stand Alone Forms: Patient Portal Discharge page Care Plan Goals: Resolution of all symptoms Health Concerns: Gallstone pancreatitis Plan of Treatment: transfer to another Acute Care Hospital Assessment: Gallstone pancreatitis s/p RNYGBP, unable to perfrom necessary surgery at [facility] so patient has been accepted as a transfer to [facility].
--- NOTE | 2021-12-22 15:26 | MHC.CM.PN ---
PER NSG PT WILL BE TRANSFERRED TO [facility] FOR [facility], LIAISON FROM [facility] NOTIFIED AND WILL COME TO UNIT TO COMPLETE MEDNEC, REFERRAL NOT NECESSARY.
[2021-12-22 16:00] VITALS: BP 163/77; PULSE 54; RESP 20; TEMP 36.4; O2SAT 91
[2021-12-22] MEDS: levoFLOXacin/D5W 500 MG/100 ML PIGGYBACK 100 MG IV (16:55)
[2021-12-22 17:29] VITALS: RESP 18
[2021-12-24 12:37] LABS: Calcium, Ionized 4.8 mg/dL (4.8-5.6)
== END 2021-12-22 20:00 | disposition short-term general hospital (02) ==
LOC: HO.ED 18:02 → HO.EDOVER 18:04 → HO.S3 18:13
PROVIDERS: Physician Assistant; Physician Assistant Medical; Physician Assistant Surgical; Admitting Provider Surgery; Emergency Provider Emergency Medicine; PCP Internal Medicine; Visit Provider Surgery
DX: K80.31 Calculus of bile duct with cholangitis, unspecified, with obstruction (principal); K85.10 Biliary acute pancreatitis without necrosis or infection; K28.4 Chronic or unspecified gastrojejunal ulcer with hemorrhage; I10 Essential (primary) hypertension; E11.9 Type 2 diabetes mellitus without complications; F32.A Depression, unspecified; G47.30 Sleep apnea, unspecified; M10.9 Gout, unspecified; E87.6 Hypokalemia; M19.90 Unspecified osteoarthritis, unspecified site; G43.909 Migraine, unspecified, not intractable, without status migrainosus; K21.9 Gastro-esophageal reflux disease without esophagitis; Z20.822 Contact with and (suspected) exposure to COVID-19; Z98.84 Bariatric surgery status; F17.210 Nicotine dependence, cigarettes, uncomplicated; Z71.6 Tobacco abuse counseling; Z79.899 Other long term (current) drug therapy
CPT/HCPCS: 36415; 74181; 80048; 80053; 80076; 82150; 82330; 82947; 83605; 83615; 83690; 85025; 86850; 86900; 86901; 87040; 87635; 96365; 96375; 99285; 99291; C1758; J0131; J0696; J1170; J1200; J1956; J2060

== ENCOUNTER 2022-02-17 12:58 | Day surgery (SDC) | payer BC, SELFPAY ==
--- NOTE | 2022-02-16 09:55 | HO.ANESPROP2 ---
Documented by User: Liseth Vargas NP 02/16/22 10:52 HPI - Anesthesia Eval Consult details Narrative: 61yo M for Upper Endoscopy with Balloon Dilitation s/p lap kary at [facility] 12/2021 s/p EGD 11/2021 with GA-ETT 7 (during [facility] admit for GIB, post bariatric surgery revision 02/2021) [facility] Active Problems Active Problems: All Active Problems (Updated 12/30/21 @ 00:04 by Domenico Nava) Cholangitis due to bile duct calculus with obstruction (Acute) Gram-negative bacteremia (Acute) Overweight (BMI 25.0-29.9) (Acute) Gall stone pancreatitis (Acute) S/P gastric bypass (Acute) History of repair of hiatal hernia (Acute) History of sleeve gastrectomy (Acute) Past Medical History Medical History Abdominal pain, acute, right upper quadrant Acid reflux Acute GI bleeding Anastomotic ulcer Arthritis Blood in stool BMI 45.0-49.9, adult Bradycardia Depression Depression, major, in remission GI bleed Gout Heart murmur Hiatal hernia History of blood transfusion History of concussion HTN (hypertension) Hypokalemia Intestinal malabsorption following gastrectomy Migraines Morbid obesity due to excess calories Obesity with body mass index (BMI) of 30.0 to 39.9 Pre-diabetes Preoperative examination Preoperative testing Right rotator cuff tear Shortness of breath Sleep apnea Family History Family History Father CHF (congestive heart failure) Mother Breast cancer Brother No problems noted. Brother No problems noted. Sister No problems noted. Sister No problems noted. Son No problems noted. Daughter Mast cell disorder Chriss-Danlos syndrome Chiari malformation Surgical History Surgical History H/O nasal septoplasty History of ankle surgery History of gastric bypass History of repair of hiatal hernia History of sleeve gastrectomy History of tonsillectomy History of total adrenalectomy Hx of colonoscopy Hx of esophagogastroduodenoscopy S/P gastric bypass Status post left foot surgery History of Problems with Anesthesia: No Social History Social History Household Members: Spouse Housing: House Are you a primary animal care supervisor to a significant other at home: No Do you presently have visiting nurse or other home services: No Alcohol intake: former Patient Tobacco Use Status: Former Tobacco user Quit Date: 11/29/2021 Tobacco use type: Cigar e-Cigarette/Vaping Use: Former Use Are you DNR?: No Advance Directives: Yes Advance Directives on File: Yes Advance Directives Date on File: 11/30/21 Nutrition Risks: No Nutritional Risk service: No Current occupational status: employed Meds Allergies Allergy/AdvReac Type Severity Reaction Status Date / Time No Known Allergies Allergy Verified 02/17/22 14:04 Home Medications Medication Instructions Recorded Confirmed Last Taken Type albuterol sulfate 90 mcg/actuation 2 puff inhalation Q4-6H PRN 08/28/20 12/18/21 Unknown History aerosol inhaler (ProAir HFA) Wheezing colchicine 0.6 mg tablet 0.6 mg PO DAILY PRN gout 08/28/20 12/18/21 Unknown History iron,carbonyl 30 mg-folic acid 800 1 tab PO DAILY 08/28/20 12/18/21 Unknown History [id number] chewable tablet (Opurity Multivitamin) valsartan 160 mg tablet 160 mg PO DAILY 08/28/20 12/18/21 Unknown History trazodone 50 mg tablet 200 mg PO BEDTIME PRN Sleep 04/01/21 12/18/21 12/17/21 History diphenhydramine HCl 25 mg capsule 50 mg PO BEDTIME 04/30/21 12/18/21 12/17/21 History (Benadryl) allopurinol 300 mg tablet 300 mg PO DAILY 11/23/21 12/18/21 12/17/21 History atorvastatin 40 mg tablet 1 tab PO DAILY 11/23/21 12/18/21 Unknown History buspirone 10 mg tablet 1 tab PO DAILY 11/23/21 12/18/21 Unknown History tamsulosin 0.4 mg capsule 1 cap PO DAILY 11/23/21 12/18/21 Unknown History lorazepam 2 mg tablet 2 mg PO DAILY 12/18/21 12/18/21 12/17/21 History sucralfate 1 gram tablet 1 tab PO TID 12/18/21 12/18/21 12/17/21 History Exam Exam Date and Time: February 16, 2022 0955 Pertinent Lab Results Pertinent Lab Results: Laboratory Tests 12/22/21 12/22/21 05:55 05:55 WBC 5.7 Hgb 11.6 L Hct 35.5 L Plt Count 156 L Sodium 138 Potassium 3.4 Chloride 110 H Carbon Dioxide 23 BUN 9 Creatinine 0.57 Assessment and Plan Assessment Anesthesia Assessment: Chart Reviewed Final Anesthetic Review History of Problems with Anesthesia: No Documented by User: Deepika Shearer MD 02/17/22 14:05 [facility] Past Medical History Medical History Abdominal pain, acute, right upper quadrant Acid reflux Acute GI bleeding Anastomotic ulcer Arthritis Blood in stool BMI 45.0-49.9, adult Bradycardia Depression Depression, major, in remission GI bleed Gout Heart murmur Hiatal hernia History of blood transfusion History of concussion HTN (hypertension) Hypokalemia Intestinal malabsorption following gastrectomy Migraines Morbid obesity due to excess calories Obesity with body mass index (BMI) of 30.0 to 39.9 Pre-diabetes Preoperative examination Preoperative testing Right rotator cuff tear Shortness of breath Sleep apnea Family History Family History Father CHF (congestive heart failure) Mother Breast cancer Brother No problems noted. Brother No problems noted. Sister No problems noted. Sister No problems noted. Son No problems noted. Daughter Mast cell disorder Chriss-Danlos syndrome Chiari malformation Surgical History Surgical History H/O nasal septoplasty History of ankle surgery History of gastric bypass History of repair of hiatal hernia History of sleeve gastrectomy History of tonsillectomy History of total adrenalectomy Hx of colonoscopy Hx of esophagogastroduodenoscopy S/P gastric bypass Status post left foot surgery Social History Social History Household Members: Spouse Housing: House Are you a primary animal care supervisor to a significant other at home: No Do you presently have visiting nurse or other home services: No Alcohol intake: former Patient Tobacco Use Status: Former Tobacco user Quit Date: 11/29/2021 Tobacco use type: Cigar e-Cigarette/Vaping Use: Former Use Are you DNR?: No Advance Directives: Yes Advance Directives on File: Yes Advance Directives Date on File: 11/30/21 Nutrition Risks: No Nutritional Risk service: No Current occupational status: employed Meds Allergies Allergy/AdvReac Type Severity Reaction Status Date / Time No Known Allergies Allergy Verified 02/17/22 14:04 Home Medications Medication Instructions Recorded Confirmed Last Taken Type albuterol sulfate 90 mcg/actuation 2 puff inhalation Q4-6H PRN 08/28/20 12/18/21 Unknown History aerosol inhaler (ProAir HFA) Wheezing colchicine 0.6 mg tablet 0.6 mg PO DAILY PRN gout 08/28/20 12/18/21 Unknown History iron,carbonyl 30 mg-folic acid 800 1 tab PO DAILY 08/28/20 12/18/21 Unknown History [id number] chewable tablet (Opurity Multivitamin) valsartan 160 mg tablet 160 mg PO DAILY 08/28/20 12/18/21 Unknown History trazodone 50 mg tablet 200 mg PO BEDTIME PRN Sleep 04/01/21 12/18/21 12/17/21 History diphenhydramine HCl 25 mg capsule 50 mg PO BEDTIME 04/30/21 12/18/21 12/17/21 History (Benadryl) allopurinol 300 mg tablet 300 mg PO DAILY 11/23/21 12/18/21 12/17/21 History atorvastatin 40 mg tablet 1 tab PO DAILY 11/23/21 12/18/21 Unknown History buspirone 10 mg tablet 1 tab PO DAILY 11/23/21 12/18/21 Unknown History tamsulosin 0.4 mg capsule 1 cap PO DAILY 11/23/21 12/18/21 Unknown History lorazepam 2 mg tablet 2 mg PO DAILY 12/18/21 12/18/21 12/17/21 History sucralfate 1 gram tablet 1 tab PO TID 12/18/21 12/18/21 12/17/21 History Exam Airway Mallampati Class: III TM Dist: >3cm Neck ROM: Full Loose/Missing/Broken Teeth: No Heart: RRR Lungs: CTA Assessment and Plan Assessment Anesthesia Assessment: Anesthesia Plan Discussed Final Anesthetic Review NPO: Yes ASA Class: III Final Preanesthetic Review: Meds/Allgs Chart Reviewed, Consent Obtained/Reviewed and Anes Risks/Benef Reviewed Patient Risk: Intermediate Procedure Risk: Intermediate Anesthetic Plan Anesthetic Plan: MAC: Disposition: Standard PACU
[2022-02-17 13:16] VITALS: BMI 27.3
[2022-02-17] MEDS: Lactated Ringers 1,000 ML 100 ML IVCONT (13:52)
[2022-02-17 13:53] VITALS: BP 129/70; PULSE 51; RESP 18; TEMP 36.7; O2SAT 98
--- NOTE | 2022-02-17 14:07 | PC.NURSE ---
dr. russo aware of low pulse 0f 46-48. pt asymptomatic
[2022-02-17 14:35] VITALS: BP 105/54; PULSE 54; RESP 18; TEMP 36.7; O2SAT 99
[2022-02-17 14:50] VITALS: BP 106/50; PULSE 49; RESP 18; O2SAT 99
--- NOTE | 2022-02-17 14:58 | PM.OP ---
Brief Operative Note Date of Service: 02/17/22 Pre-op diagnosis: Early satiety, vomiting Post-op diagnosis: other (Patent anastomosis, some inflammation and ulceration around anastomosis but with significant improvement, hiatal hernia and reflux) Procedure: EGD with biopsy Surgeon: Buddy Peguero Anesthesia: MAC Was an Rfid Strategist used for this Procedure?: No Estimated blood loss (mL): 2.0 Pathology: other (A. Gastric remnant B. EG Junction at 37cm) Condition: stable Disposition: PACU
[2022-02-17 15:05] VITALS: BP 111/54; PULSE 50; RESP 18; TEMP 36.7; O2SAT 99
--- NOTE | 2022-02-18 00:56 | OP_ITS ---
SURGEON: Buddy Peguero MD INDICATIONS: The patient presents for evaluation of some early satiety and postprandial vomiting. Full consent has been obtained from him for this, including risks of bleeding and perforation. PREOPERATIVE DIAGNOSIS: Early satiety and postprandial vomiting. POSTOPERATIVE DIAGNOSIS: Early satiety and postprandial vomiting. Patent gastrojejunostomy anastomosis, some mild residual inflammation and ulceration at the gastrojejunostomy anastomosis but much improved from previous EGD, hiatal hernia, and reflux. PROCEDURE PERFORMED: ESTIMATED BLOOD LOSS: COMPLICATIONS: ANESTHESIA: Monitored anesthesia care. ASSISTANTS: SPECIMENS: PROCEDURE: Esophagogastroduodenoscopy with biopsies. DESCRIPTION OF PROCEDURE: The patient was placed in the left lateral decubitus position. The Olympus video gastroscope was passed in the posterior oropharynx and upper esophagus under direct vision. The scope was passed slowly to the distal esophagus. The gastroesophageal junction appeared at 37 cm. There was some slight irregularity consistent with reflux and possibly small areas of Bean's mucosa. There was no evidence of any esophagitis nor any lesions. The scope entered the stomach. There was a small hiatal hernia. The scope was advanced to the region of the anastomosis. This was seen at approximately 45 cm. The anastomosis was widely patent and allowed easy passage of the scope from the gastric remnant into the small bowel. The small bowel mucosa appeared normal. The area of the anastomosis itself was notable for some retained sutures as well as two remaining clips from his previous endoscopy during his upper GI bleeding back in November. It was hard to say if the clips were attached to the suture material or the mucosa. In any event, there was no sign of any narrowing nor obstruction. There was still some residual inflammation and minimal ulcerations at the anastomosis itself, but dramatically better than it was back in November. The gastric remnant did have good peristalsis. There was no sign of any mucosal abnormalities other than some erythema. The scope was retroflexed visualizing the proximal stomach carefully, which appeared normal, without mass or ulceration. The scope was straightened. Biopsies were obtained from the gastric remnant to inspect for H pylori. Given the appearance of the anastomosis, no dilation was performed. The scope was withdrawn back in the esophagus. Biopsies were obtained at the EG junction at 37 cm. Proximal to this, esophageal mucosa appeared normal. The scope was withdrawn from the patient. He tolerated the procedure well and was returned to the recovery area in stable condition. IMPRESSION: 1. Patent gastrojejunostomy anastomosis. 2. Some residual inflammation and ulceration at the anastomosis, but without any sign of stricture, nor bleeding. 3. Rule out Helicobacter pylori. 4. Hiatal hernia, rule out Bean's esophagus. PLAN: The results of the biopsies will be checked. He will continue his current regimen of omeprazole and sucralfate on a long-term basis. He has been advised again to avoid all aspirin and NSAIDs. He will be seen in followup as needed. If H pylori happens to be present in the gastric biopsies, I would recommend treating that given the previous history of the significant anastomotic ulcer and GI bleed. This has been discussed with his . MD KAUSHIK Pickett/VANESA / [id number] MTDD
== END 2022-02-17 15:51 | disposition home or self-care (01) ==
PROVIDERS: PCP Internal Medicine; Visit Provider Internal Medicine
PROC: (CPT 43239; principal; 2022-02-17 14:00)
DX: K28.9 Gastrojejunal ulcer, unspecified as acute or chronic, without hemorrhage or perforation (principal); K29.50 Unspecified chronic gastritis without bleeding; R11.10 Vomiting, unspecified; R68.81 Early satiety; K21.9 Gastro-esophageal reflux disease without esophagitis; K44.9 Diaphragmatic hernia without obstruction or gangrene; Z79.899 Other long term (current) drug therapy
CPT/HCPCS: 43239; 88305; 88342